=== PATIENT | male | born 1945 | race Caucasian/White ===

== ENCOUNTER → 2017-11-27 07:08 | Outpatient (CLI) | payer MEDICARE, SELFPAY ==
--- NOTE | 2017-11-27 10:11 | NEURO ---
NCS and/or EMG Patient Report Ordering Doctor: Verona Mcmahon DATE OF SERVICE: 11/27/17 This is a bilateral upper extremity nerve conduction study and a right upper extremity EMG performed on this 72-year-old male with numbness tingling and pain in his first 3 digits on his right hand. Did have a remote neck injury but he says he is pain-free now. He describes electrical sensations in his first 3 digits but this does not occur with neck movements. Bilateral upper extremity sensory and motor nerve conduction studies are performed. The median motor and sensory distal latencies are noted to severely prolonged bilaterally. The ulnar motor and sensory and radial sensory responses are normal. The median F-wave latencies are prolonged compared to the ulnar F wave latencies. Right upper extremity needle electromyography is performed. Muscles evaluated included the first dorsal interosseous, abductor pollicis brevis, abductor pollicis longus, brachioradialis, biceps, triceps and deltoid muscles. The abductor pollicis brevis muscle did demonstrate large motor unit amplitude, with increase in insertional activity and 1+ fibrillation potentials. All other muscles tested including other C8 muscles demonstrated normal insertional activity with absence of pathologic spontaneous activity. Motor unit potential recruitment pattern and amplitude was otherwise normal. Impression: This is an abnormal electrophysiologic study of the upper extremities consistent with moderate to severe carpal tunnel syndrome bilaterally worse electrophysiologically on the right side.
== END ==
PROVIDERS: Family Provider Family Medicine; PCP Family Medicine; Visit Provider Orthopaedic Surgery
DX: G56.03 Carpal tunnel syndrome, bilateral upper limbs (principal)
CPT/HCPCS: 95886; 95911

== ENCOUNTER → 2018-05-30 09:01 | Outpatient (CLI) | payer MEDICARE, SELFPAY ==
--- NOTE | 2018-05-30 09:07 | ECHOD_ITS ---
Reason For Study: Abn. EKG Procedure This was a 2D Doppler, Color Flow transthoracic echocardiogram. The exam was of adequate technical quality. Exam performed in department. Left Ventricle Normal LV size. Left ventricular systolic function is normal. The estimated ejection fraction is 60 %. No evidence for diastolic dysfunction. No regional wall motion abnormalities noted. Right Ventricle Normal RV size. Normal systolic function. Atria Normal left atrium. Normal right atrium. No doppler evidence for ASD. Mitral Valve There is moderate mitral annular calcification. Extension of the mitral annular calcification onto the posterior mitral valve leaflet. Trivial mitral valve insufficiency. Tricuspid Valve Normal tricuspid valve. Mild to moderate (1-2+) tricuspid valve insufficiency. Right ventricular systolic pressure estimated to be 30 mmHg. Aortic Valve Trisinus/trileaflet aortic valve. Normal aortic valve. Trivial aortic valve insufficiency. Pulmonic Valve The pulmonic valve is not well visualized. Mild (1+) pulmonic valve insufficiency. Great Vessels Normal sized aortic root. Pericardium/Pleural No pericardial effusion. MMode/2D Measurements & Calculations LVIDd: 3.9 cm IVSd: 1.1 cm Ao root diam: 3.3 cm LVIDs: 2.3 cm LVPWd: 1.2 cm RVDd: 3.8 cm FS: 41.3 % LAV(MOD-bp): 62.9 ml EDV(MOD-sp4): 112.6 ml EDV(MOD-sp2): 110.6 ml LAV(MOD-bp) Indexed: 34.6 ml/m2 ESV(MOD-sp4): 48.6 ml EF(MOD-sp2): 53.5 % LAV(MOD-sp2): 69.5 ml EF(MOD-sp4): 56.9 % LAV(MOD-sp4): 49.8 ml SV(MOD-sp4): 64.0 ml SV(MOD-sp2): 59.2 ml LA A4 area: 17.4 cm2 LA dimension(2D): 3.6 cm RA A4 area: 14.4 cm2 Doppler Measurements & Calculations MV E max vinicio: 72.4 cm/sec Lat Peak E' Vinicio: 11.8 cm/sec Med Peak E' Vinicio: 6.8 cm/sec MV A max vinicio: 78.8 cm/sec E/E' lat: 6.1 E/E' med: 10.7 MV E/A: 0.92 Ao V2 max: 142.5 cm/sec LV V1 max: 112.5 cm/sec PA V2 max: 104.7 cm/sec Ao max P.1 mmHg LV V1 max P.1 mmHg TR max vinicio: 257.8 cm/sec TR max P.6 mmHg Interpretation Summary Left ventricular systolic function is normal. The estimated ejection fraction is 60 %. There is moderate mitral annular calcification. Extension of the mitral annular calcification onto the posterior mitral valve leaflet. Trivial mitral valve insufficiency. Mild to moderate (1-2+) tricuspid valve insufficiency. Trivial aortic valve insufficiency. Mild (1+) pulmonic valve insufficiency. Right ventricular systolic pressure estimated to be 30 mmHg. No evidence for diastolic dysfunction. Ordering Physician: Phylicia Serra Referring Physician: Phylicia Serra Performed By: Allison You RDCS
== END ==
PROVIDERS: Family Provider Internal Medicine; PCP Internal Medicine; Referring Provider Internal Medicine; Visit Provider Internal Medicine
DX: R94.31 Abnormal electrocardiogram [ECG] [EKG] (principal)
CPT/HCPCS: 93306

== ENCOUNTER → 2018-12-05 08:27 | Outpatient (CLI) | payer MEDICARE, SELFPAY ==
[2018-12-05 10:27] LABS: Absolute Lymphocyte Count 1.59 X10^3/uL (0.83-4.51); Absolute Neutrophil Count 2.7 X10^3/uL (2.0-7.7); Basophil# 0.04 X10^3/uL; Basophil% 0.8 % (0-1); Eosinophil# 0.23 X10^3/uL; Eosinophils% 4.6 % (0-5); Hematocrit 40.6 % (40-54); Hemoglobin 13.3 g/dL (13.0-16.5); Lymphocyte # 1.59 X10^3/ul (4.0); Lymphocyte % 31.9 % (19-41); Mean Corp Hgb Conc 32.8 g/dL (32-36); Mean Corpuscular Hgb 30.6 pg (27.0-32.0); Mean Corpuscular Volume 93.3 fL (80-94); Mean Platelet Vol. 10.3 fl (6.2-12.0); Monocyte# 0.36 X10^3/uL; Monocyte% 7.2 % (0-10); NRBC Flagged by Analyzer 0 % (0-5); Neutrophil # 2.74 X10^3/uL (2.7-7.7); Neutrophil % 55.1 % (47-70); Platelet Count 271 K/mm3 (150-450); RBC Distribution Width CV 12.6 % (11.6-14.6); RBC Distribution Width SD 43.4 fl (35.1-43.9); Red Blood Count 4.35 M/mm3 (4.6-6.2)
[2018-12-05 11:18] LABS: Estradiol 20.4 pg/mL; Free T3 2.6 pg/mL (2.18-3.98); T4 Free Direct 0.98 ng/dL (0.76-1.46); Thyroid Stim Hormone (TSH) 1.52 uIU/mL (0.358-3.74)
[2018-12-09 11:24] LABS: Testosterone, % Free 1.67 % (1.50-4.20); Testosterone, Free 5.83 ng/dL (5.00-21.00)
[2018-12-10 13:01] LABS: PSA, Free 0.32 ng/mL; PSA, Free % 26.7 % (.); PSA, Total Ultrasensitive 1.2 ng/mL (0.0-4.0); Testosterone, Total 349 ng/dL (264-916); Thyroid Peroxidase AB 6 IU/mL (0-34)
== END ==
PROVIDERS: Family Provider Internal Medicine; PCP Internal Medicine; Referring Provider Preventive Medicine Public Health & General Preventive Medicine; Visit Provider Preventive Medicine Public Health & General Preventive Medicine
DX: E03.5 Myxedema coma (principal); E34.9 Endocrine disorder, unspecified; E29.1 Testicular hypofunction; N40.1 Benign prostatic hyperplasia with lower urinary tract symptoms; R97.20 Elevated prostate specific antigen [PSA]; E27.49 Other adrenocortical insufficiency
CPT/HCPCS: 36415; 82533; 82670; 84153; 84154; 84402; 84403; 84439; 84443; 84481; 85025; 86376

== ENCOUNTER 2019-08-12 10:13 | Day surgery (SDC) | payer MEDICARE, SELFPAY ==
[2019-07-28 13:24] VITALS: BMI 26.5
[2019-08-12] VITALS (8 sets, daily range): BP systolic 107–150; BP diastolic 59–76; PULSE 57–63; RESP 16; TEMP 36.1–36.9; O2SAT 95–99; BMI 25.7
[2019-08-12] MEDS: Lactated Ringers 1,000 ML 100 ML IV (10:59)
[2019-08-12 11:10] LABS: Bedside Glucose 183 mg/dL (70-110)
[2019-08-12] MEDS: Cefazolin 2 GM in 0.9% Normal Saline 100 ML IV (12:11)
--- NOTE | 2019-08-12 12:22 | HP.PCM_ITS ---
History and Physical I have re-examined the patient. There are no clinical changes since date of exam. Intake Vital Signs 07/28/19 BMI 26.5 Intake Visit Reasons: Bilat Wrist Allergies No Known Allergies Allergy (Verified 11/14/17 14:47) [facility] Surgical History (Updated 11/14/17 @ 14:47 by Roxana Morales) H/O cervical spine surgery (Acute) Social History (Updated 07/28/19 @ 13:[address] Verona Mcmahon, DO) Smoking Status: Former smoker HPI HPI Details: Patient was informed that this visit will be billed to patient. This visit was conducted during COVID-19 pandemic. AMBROSE TONEY, is a 74 M who presents to the office today for right carpal tunnel syndrome. gotten worse since shut gyms down and weakness worsening. states weakness worsening and having problems with shooting pain in first three fingers. Denies numbness, tingling or other associated symptoms in left hand, symptoms in right primarily. no changes in meds or med history. see chart for further details.. ROS [facility] [place] Musculoskeletal: Positive for muscle weakness (right hand) Exam Const General: cooperative HENMT Head: normal to inspection Eyes General: appearance normal, both eyes and all related structures Neck Neck: normal visual inspection [facility] [place] Musculoskeletal: Yes muscle weakness (right hand) Other: weakness first/thru third, numbness 1-3rd, Assessment & Plan Problems 1. Right carpal tunnel syndrome G56.01 Plan emg from 2018 showed mod to severe cts. h/o neck surgery no cervical radicular findings on emg. Reviewed the pre-operative plans with the patient. Risks and benefits of the procedure were fully explained, including but not limited to infection, neurovascular injury, continued pain, arthritis, stiffness, need for further surgery, re-injury, DVT, PE, general risks of anesthesia, and loss of limb or life. The patient understands all the risks and does wish to proceed with writ ten consent right carpal tunnel release. covid risks discussed as well, worsening weakness of hand and would like to proceed with ctr right hand.. staff will call with potential timing of surgery. at time of postop visit will get xrays of neck. Follow up 2 wks postop carpal tunnel or sooner if pain, swelling, numbness or associated symptoms, or concerns develop. All questions answered. Patient in agreement of plan. We discussed the current risk associated COVID-19. While it is understood that there is a community spread of COVID 19 the risk of patricio COVID-19 while at [facility] is very low, however, the risk cannot be completely mitigated because of the community spread of the disease. We discussed in detail the risk of exposure to and or potential harm posed by the COVID-19 virus with having a surgery/procedure at this time versus the risk of delaying the surgery/procedure. Is not possible to know either the risk of delaying the surgery procedure or chance of getting an infection with perfect accuracy, but a joint decision was made to proceed at this time with a schedule surgery/procedure as indicated on the consent form. Patient was notified that we will need to comply with any screening or testing [facility] wishes to perform or that surgery may be delayed for any positive results. Coding Level of Care Code Off vis,est,level 4 Diagnoses Right carpal tunnel syndrome G56.01 Essential Procedure Criteria Procedure Essential: Yes Criteria Note: On 06/09/2019 the [place] Department of Health ([facility]) Public Order signed by [facility] Director Roxana Nino M.D., regarding the Management of Non- Essential Surgeries and Procedures for the purpose of preserving Personal Protective Equipment (PPE) and critical hospital capacity and resources within [place] went into effect as of 06/10/2019 at 5:00PM. According to the [facility] Public Order: This action will remain in full force and effect until the State of Emergency declared by the Governor no longer exists or the Director of the [facility] rescinds or modifies this Order.. This [facility] order stated all non-essential or elective surgeries and procedures that utilize PPE should be delayed unless there is undue risk to the current or future health of a patient. After reviewi ng the aforementioned [facility] Public Order and the patients clinical case, I have determined that the scheduled procedure meets the criteria to go forward. Risk to Patient if Procedure Delayed: Risk of rapidly worsening to severe symptoms if delayed
--- NOTE | 2019-08-12 12:24 | DCINST_ITS ---
Discharge Diet: No Restrictions - Leave dressing on until seen in postop clinic in 10-14 days for suture removal, keep dressing clean, dry, intact; change dressing if gets wet/dirty, call with concerns Discharge Activity: May Not Drive May shower in (days): 1 Ice area for (Minutes): 20 - Every hour while awake. Weight Bearing Status: Weight bearing as tolerated Keep extremity elevated above heart level: Operative Extremity Call your doctor if your incision/area has: Continuous Slow Oozing, Sudden Increased Bleeding, Increased Pain/ Swelling, Increased Redness, Foul Smelling Discharge Call your doctor if you observe: Fever of 101 or Higher, Coldness, Increased Pain, Numbness or Tingling, Change in Color, Calf discomfort Allergies/Adverse Reactions: Allergies No Known Allergies Allergy (Verified 08/12/19 10:30) Medications to take at Discharge Amlodipine [Norvasc] 10 mg PO DAILY 02/03/15 Hydrochlorothiazide [Hctz] 25 mg PO DAILY 02/03/15 Lisinopril [Zestril] 20 mg PO BID 02/03/15 metFORMIN HCl [Glucophage] 500 mg PO BID 02/03/15 Ascorbic Acid [Vitamin C] 3,000 mg PO BID 08/07/19 Bee Pollen 500 mg PO BID 08/07/19 Cholecalciferol (Vitamin D3) [Vitamin D3] 10,000 unit PO DAILY 08/07/19 Cinnamon Bark [Cinnamon] 1,000 mg PO BID 08/07/19 Flaxseed Oil 1,000 mg PO BID 08/07/19 Folic Acid 0.4 mg PO DAILY 08/07/19 L.acidoph,Paracasei, B.lactis [Probiotic] 2 ea PO BID 08/07/19 Magnesium 250 mg PO BID 08/07/19 Potassium (Otc) [Potassium Otc] 99 mg PO QHS 08/07/19 Red Yeast Rice 600 mg PO BID 08/07/19 Saw [place] Fruit [Saw [place]] 450 mg PO DAILY 08/07/19 Saw [place] Fruit [Saw [place]] 900 mg PO QHS 08/07/19 Selenium 200 mcg PO BID 08/07/19 Zinc 50 mg PO BID 08/07/19 Acetaminophen/Codeine #3 [Tylenol #3 Tablet] 1 - 2 tab PO Q6H PRN PRN #20 tab 08/12/19 The following prescriptions were given: Acetaminophen/Codeine #3 [Tylenol #3 Tablet] 1 - 2 tab PO Q6H PRN PRN #20 tab PRN Reason: Pain Transmission Status: Received by [id number] Primary Care Physician: Phylicia Serra DO [Primary Care Provider] - Test Results: Test results from this visit will be discussed in further detail at your follow- up appointment, if applicable. Please Follow Up With: Verona Mcmahon DO - [phone]
--- NOTE | 2019-08-12 12:25 | OP.PCM_ITS ---
Report of Operation Date of Procedure: 08/12/19 Pre-Operative Diagnosis: right carpal tunnel syndrome Post-Operative Diagnosis: same Surgery/Procedure Performed:: right carpal tunnel release Type of Anesthesia:: General Anesthesiologist: Tarun Chaudhry Estimated Blood Loss (mL): min Fluids Replaced: 400cc lr Description of Procedure: Preoperative note Patient is a 74 year old patient with nerve conduction study confirming carpal tunnel syndrome. Patient failed conservative treatment for her carpal tunnel elected proceed with right carpal tunnel release. Risks benefits and alternatives surgery discussed with patient. Risks including but not limited to blood loss, blood clot, infection, neurovascular injury, failure procedure, loss of life and loss of limb. Patient is aware like proceed with right carpal tunnel release. We discussed the current risk associated COVID-19. While it is understood that there is a community spread of COVID 19 the risk of patricio COVID-19 while at [facility] is very low, however, the risk cannot be completely mitigated because of the community spread of the disease. We discus sed in detail the risk of exposure to and or potential harm posed by the COVID- 19 virus with having a surgery/procedure at this time versus the risk of delaying the surgery/procedure. Is not possible to know either the risk of delaying the surgery procedure or chance of getting an infection with perfect accuracy, but a joint decision was made to proceed at this time with a schedule surgery/procedure as indicated on the consent form. Patient was notified that we will need to comply with any screening or testing [facility] wishes to perform or that surgery may be delayed for any positive results. Operative note Patient seen and examined preoperative holding area. right hand was marked. History and physical and consent reviewed. Patient was brought to the operating room placed supine on the operating table. Sign in, anesthesia, antibiotics were administered. right upper extremity was prepped and draped after Beck block was initiated. All bony prominences well-padded SCDs placed on bilateral lower extremities. We marked out our incisions for our carpal tunnel release at the intersection of Cate's line in the fourth ray flexed. We extended about a centimeter and a half. Timeout was performed. We then checked ensure that the Beck block was working with pickups which it was . We then used a 15 blade to make a skin incision. We then dissected down tenotomy syllable of the transverse carpal ligament. We then used a new 15 blade cut through the transverse carpal ligament down to the level of the median nerve. We then further released the median nerve the combination of the 15 blade and tenotomies. The nerve was grayish in color and adherent to the transverse carpal ligament volarly. We released the transverse carpal ligament distally to the fat pad and then proximally under standard technique. We then palpated to ensure that we released all of the transverse carpal ligament which we did. We irrigated the incision with copious amounts of sterile saline. All bleeders were coagulated. The incision was closed with interrupted 4-0 nylon stitches. Tourniquet was deflated for total working time of 10 minutes. Patient tolerated procedure well there were no complications. Patient transferred to recovery room in stable condition. Postoperative note Hospital pharmacy has prescription Leave dressing clean dry and intact Follow-up in 2 weeks Call with concerns This note was generated with [employer] dictation software. It may contain incorrect words, spelling, and punctuation that were not noted in checking the note before signing
--- NOTE | 2019-08-12 12:31 | CHAPLAIN ---
Type of Pastoral Visit _x__ Initial Visit ___ Follow-up Visit ___ On-call Visit ___ General Patient Visit ___ Spiritual Assessment ___ Family Conference ___ Bereavement ___ Rapid Response ___ Code Blue ___ Other (describe below) Pastoral Care Referral From _x__ Patient ___ Family ___ Nurse ___ Physician ___ Health And Safety Consultant ___ Top Ironer ___ Other (describe below) Sacrament/Intervention _x__ Active listening ___ Anointing ___ Shinto ___ Bereavement ___ Communion ___ Dorie exploration ___ ___ Life review _x__ Prayer ___ Reconciliation ___ Sacrament of Sick ___ Supportive presence ___ Wedding ___ Other (describe below) Pastoral Comments pre surgery prayer and support
[2019-08-12] MEDS: Mupirocin Ointment 22gm Tube 1 APPLIC (12:34)
== END 2019-08-12 14:32 | disposition home or self-care (01) ==
LOC: SDC 10:14 → AC 10:15
PROVIDERS: PCP Internal Medicine; Referring Provider Orthopaedic Surgery; Visit Provider Orthopaedic Surgery
PROC: (CPT 64721; principal; 2019-08-12 11:30)
DX: G56.01 Carpal tunnel syndrome, right upper limb (principal); I10 Essential (primary) hypertension; E11.9 Type 2 diabetes mellitus without complications; Z79.899 Other long term (current) drug therapy; Z79.84 Long term (current) use of oral hypoglycemic drugs; Z87.891 Personal history of nicotine dependence; Z11.59 Encounter for screening for other viral diseases
CPT/HCPCS: 01810; 64721; 82962; 87635; C9803; G2023; J7120; A4216; U0002

== ENCOUNTER → 2019-09-22 09:21 | Outpatient (CLI) | payer MEDICARE, SELFPAY ==
[2019-09-22 09:12] VITALS: BMI 25.7
--- NOTE | 2019-09-22 09:22 | RAD_ITS ---
STUDY: X-RAY - CERVICAL SPINE REASON FOR EXAM: Male, 74 years old. PAIN TECHNIQUE: 5 view(s) of the cervical spine were obtained. COMPARISON: None FINDINGS: Normal anterior atlantoaxial articulation. Normal odontoid process. Normal cervical lordosis. Right lateral mass fusions at the C3-C5 levels. Bilateral laminectomies from C3-4 through C5-6. Normal visualized intervertebral neuroforamina. Vascular calcifications. RAD/Cerv Spine 4 or 5 Views IMPRESSION: Postoperative changes as described. Neural foramina are patent. Electronically Signed: Chente Choe MD at 16:33 EDT Tel , Service support ,
== END ==
PROVIDERS: PCP Internal Medicine; Referring Provider Orthopaedic Surgery; Visit Provider Orthopaedic Surgery
DX: M54.2 Cervicalgia (principal)
CPT/HCPCS: 72050

== ENCOUNTER 2020-01-27 23:14 | Emergency (ER) | payer MEDICARE, SELFPAY ==
[2019-09-22 09:12] VITALS: BMI 25.7
[2020-01-27 23:15] VITALS: BP 113/49; PULSE 50; RESP 16; TEMP 36.7; O2SAT 93; BMI 25.8
--- NOTE | 2020-01-27 23:29 | EKG12_ITS ---
Test Reason : COUGH Blood Pressure : / mmHG Vent. Rate : 080 BPM Atrial Rate : 080 BPM P-R Int : 210 ms QRS Dur : 148 ms QT Int : 386 ms P-R-T Axes : 054 078 026 degrees QTc Int : 445 ms Sinus rhythm with 1st degree A-V block Right bundle branch block Abnormal ECG Confirmed by ALISSON MOORE, ELSY ([id number]), marketing editor REY PEÑA ([id number]) on 01/28/2020 12:06:35 PM Referred By: KYLAH Confirmed By:CLAUDETTE VINSON MD
--- NOTE | 2020-01-27 23:40 | ED.DCSUM_ITS ---
History of Present Illness Chief Complaint: Cough Informant: Patient Onset: Today Context: Gradual Onset Timing: Intermittent Current Severity: Mild Maximum Severity: Moderate Narrative: The patient is a 74-year-old male who presents with Covid type symptoms. He states that his was positive. She was tested about 10 days ago. She did spend some time in the hospital. She states that she was cleared yesterday by the health department. He states that he did have symptoms that started about 4 or 5 days after her. He had cough, shortness of breath, diarrhea, and loss of taste and smell. He states that he feels like he has been improving. He has been following his pulse ox at home. He states that at sometimes, he will drop into the upper 70s for a few seconds but it will come back. He does not feel short of breath. He had a scant cough. He states his appetite has been returning. He has not had fever or chills. Prior similar symptoms: No Recent Illness/Hospitalization: No Past Medical History - Allergies and Home Meds Allergies/Adverse Reactions: Allergies No Known Allergies Allergy (Verified 01/27/20 23:18) Primary Care Physician: Phylicia Serra DO [Primary Care Provider] - Prior records reviewed: Yes Past Medical History: - - Diabetes Surgical History: noncontributory Smoking Status: Former smoker Review of Systems General: Denies: Chills, Fever, Sweats Eyes: Denies: Visual changes - bilaterally, Diplopia ENT: Denies: Rhinorrhea, Sore throat Cardiovascular: Denies: Chest pain, Palpitations Respiratory: Denies: Dyspnea, Cough, Dyspnea on exertion Gastrointestinal: Denies: Abdominal pain, Nausea, Vomiting, Diarrhea, Melena, Hematochezia Genitourinary: Denies: Dysuria, Hematuria, Frequency Musculoskeletal: Denies: Back pain, Extremity Pain Skin: Denies: Rash, Wounds Neurological: Denies: Headache, Weakness, Numbness Physical Exam Vital Signs/Narrative: Vital Signs Temp Pulse Resp BP Pulse Ox 01/27/20 23:15 98.0 F 50 L 16 113/49 L 93 Inital Vital Signs reviewed: Yes General: Well nourished, Well developed, No Acute Distress Head: Normocephalic, Atraumatic Eyes: Perrl, EOMI ENT: Moist mucous membranes, No rhinorrhea Neck: Supple, Nontender Cardiovascular: Regular rate, Regular rhythm, No murmurs Respiratory: No distress, CTA bilaterally, Chest nontender Abdomen: Soft, Nontender, Nondistended, Normal bowel sounds Back: Nontender, Normal Inspection Extremities: Nontender, No edema Skin: Normal color, No rash Neurological: Alert, Oriented x3, Cranial nerves II-XII grossly intact, Normal Strength, Normal Sensation Psychological: Normal affect, Normal Mood Diagnostic/Tx/Re-eval Abnormal Lab Results 01/27/20 01/27/20 01/27/20 23:40 23:40 23:40 WBC 5.6 RBC 4.41 L Hgb 13.3 Hct 40.7 MCV 92.3 MCH 30.2 MCHC 32.7 RDW Std Deviation 43.0 RDW Coeff of Maru 12.6 Plt Count 210 MPV 9.6 Immature Gran % (Auto) 0.400 Neut % (Auto) 74.5 H Lymph % (Auto) 19.9 [place] % (Auto) 4.6 Eos % (Auto) 0.2 Baso % (Auto) 0.4 Absolute Neuts (auto) 4.2 Absolute Lymphs (auto) 1.12 Nucleated RBC % 0 Sodium 138 Potassium 4.0 Chloride 102 Carbon Dioxide 26.0 Anion Gap 10 BUN 45 H Creatinine 1.85 H Estim Creat Clear Calc 31.61 Est GFR (MDRD) Af Amer 46 L Est GFR (MDRD) Non-Af 38 L BUN/Creatinine Ratio 24.3 H Glucose 175 H Lactic Acid 1.0 Calcium 8.2 L Total Bilirubin 0.40 AST 23 ALT 29 Alkaline Phosphatase 100 Total Protein 7.3 Albumin 3.3 Globulin 4.0 Albumin/Globulin Ratio 0.8 L Clinical Impression(s) from Imaging Studies Chest X-Ray 01/28/20 00:00 IMPRESSION: No evidence for acute cardiopulmonary pathology. Electronically Signed: Ramone Knox MD at 0:57 EST , Service support , - Medical Decision Making The patient presents with Covid symptoms. He states he is actually felt like he is been improving, but has been following his pulse ox and it is gone into the 70s. Here, the lowest documented pulse ox he had while in the bed was 89%. Metabolic work-up was pursued. Chest x-ray does not show any significant focal infiltrates. Labs are relatively unremarkable except for evidence of kidney injury. Patient was given a 500 cc bolus. The patient was ambulated through the room. His oxygen saturations actually increased. He has not been symptomatic. However, given his borderline hypoxia, I will cover him with Decadron. I did discuss options with the patient. He wants to go home. I feel this is reasonable. He has maintained good oxygen saturations. His illness has been significantly improving. He was counseled on concerning symptoms and reasons to return. He will be discharged. Impression 1. Covid 19 2. Dehydration ED Disposition - Plan for ED Patient: Instructions: ED Upper Resp Infec No Abx Tx Prescriptions: Dexamethasone [Decadron] 6 mg PO DAILY 5 Days #5 tab Prescription Printed Referrals: Phylicia Serra DO [Primary Care Provider] -
[2020-01-27 23:50] LABS: Absolute Lymphocyte Count 1.12 X10^3/uL (0.83-4.51); Absolute Neutrophil Count 4.2 X10^3/uL (2.0-7.7); Basophil# 0.02 X10^3/uL; Basophil% 0.4 % (0-1); Eosinophil# 0.01 X10^3/uL; Eosinophils% 0.2 % (0-5); Hematocrit 40.7 % (40-54); Hemoglobin 13.3 g/dL (13.0-16.5); Lymphocyte # 1.12 X10^3/ul (4.0); Lymphocyte % 19.9 % (19-41); Mean Corp Hgb Conc 32.7 g/dL (32-36); Mean Corpuscular Hgb 30.2 pg (27.0-32.0); Mean Corpuscular Volume 92.3 fL (80-94); Mean Platelet Vol. 9.6 fl (6.2-12.0); Monocyte# 0.26 X10^3/uL; Monocyte% 4.6 % (0-10); NRBC Flagged by Analyzer 0 % (0-5); Neutrophil % 74.5 % (47-70); Platelet Count 210 K/mm3 (150-450); RBC Distribution Width CV 12.6 % (11.6-14.6); Red Blood Count 4.41 M/mm3 (4.6-6.2); White Blood Count 5.6 K/mm3 (4.4-11.0)
[2020-01-27 23:57] VITALS: O2SAT 92
--- NOTE | 2020-01-28 | RAD_ITS ---
STUDY: X-RAY CHEST REASON FOR EXAM: Male, 74 years old. COUGH -- TESTED + FOR COVID TECHNIQUE: Single AP portable view of the chest. COMPARISON: None. FINDINGS: There are no confluent pulmonary infiltrates. There is no demonstrated pleural abnormality. Normal size heart. Normal mediastinum and chuckie. Normal visualized aortic arch and descending thoracic aorta. There are no demonstrated acute fractures or destructive bone lesions. There is no demonstrated abnormality of the visualized soft tissue structures of the upper abdomen. RAD/Chest 1 View (Portable) IMPRESSION: No evidence for acute cardiopulmonary pathology. Electronically Signed: Ramone Knox MD at 0:57 EST , Service support ,
[2020-01-28 00:22] LABS: ALB/GLOB Ratio 0.8 RATIO (0.9-2.4); AST(SGOT) 23 U/L (15-37); Alanine Aminotransfer ALT/SGPT 29 U/L (16-61); Albumin, Serum 3.3 g/dL (3.2-5.0); Alkaline Phosphatase 100 U/L (45-117); Anion Gap 10 (5-15); BUN 45 mg/dL (7-18); BUN/Creat Ratio 24.3 RATIO (10-20); Calcium,Total 8.2 mg/dL (8.5-10.1); Chloride 102 mmol/L (98-107); Creatinine, Serum 1.85 mg/dL (0.70-1.30); EST Glomerular Filtration Rate 38 mL/min (>60); Est Glom Filt Rate - Afr Amer 46 mL/min (>60); Estimated Creatinine Clearance 31.61 ml/min; Glucose 175 mg/dL (74-106); Protein, Total 7.3 g/dL (6.4-8.2); Sodium Level 138 mmol/L (136-145)
[2020-01-28 00:48] VITALS: O2SAT 91
[2020-01-28] MEDS: dexAMETHasone 4 MG/ML Vial 6 MG IV (00:49)
[2020-01-28 01:13] LABS: Probe Check PASS; Specimen Processing Control PASS
[2020-01-28 01:33] VITALS: BP 118/60; PULSE 70; RESP 20; O2SAT 95
== END 2020-01-28 01:41 | disposition home or self-care (01) ==
LOC: ED 23:40
PROVIDERS: Emergency Provider Emergency Medicine; PCP Internal Medicine
DX: U07.1 COVID-19 (principal); E86.0 Dehydration; E11.9 Type 2 diabetes mellitus without complications; Z79.84 Long term (current) use of oral hypoglycemic drugs; Z79.899 Other long term (current) drug therapy; Z87.891 Personal history of nicotine dependence
CPT/HCPCS: 71045; 80053; 83605; 85025; 87040; 87633; 87635; 93005; 96361; 96374; 99285; J7040; A4216; U0002

== ENCOUNTER → 2020-12-02 11:55 | Outpatient (CLI) | payer MEDICARE, SELFPAY ==
[2020-12-02 15:42] LABS: Absolute Lymphocyte Count 1.59 X10^3/uL (0.83-4.51); Absolute Neutrophil Count 3.5 X10^3/uL (2.0-7.7); Basophil# 0.04 X10^3/uL; Basophil% 0.7 % (0-1); Eosinophil# 0.22 X10^3/uL; Eosinophils% 3.8 % (0-5); Hematocrit 43.6 % (40-54); Hemoglobin 13.9 g/dL (13.0-16.5); Lymphocyte # 1.59 X10^3/ul (0.83-4.51); Lymphocyte % 27.4 % (19-41); Mean Corp Hgb Conc 31.9 g/dL (32-36); Mean Corpuscular Hgb 29.3 pg (27.0-32.0); Mean Corpuscular Volume 91.8 fL (80-94); Mean Platelet Vol. 10.9 fl (6.2-12.0); Monocyte# 0.42 X10^3/uL; Monocyte% 7.2 % (0-10); NRBC Flagged by Analyzer 0 % (0-5); Neutrophil # 3.51 X10^3/uL (2.7-7.7); Neutrophil % 60.6 % (47-70); Platelet Count 252 K/mm3 (150-450); RBC Distribution Width CV 13.2 % (11.6-14.6); RBC Distribution Width SD 44.2 fl (35.1-43.9); Red Blood Count 4.75 M/mm3 (4.6-6.2); White Blood Count 5.8 K/mm3 (4.4-11.0)
[2020-12-02 17:14] LABS: ALB/GLOB Ratio 1.1 RATIO (0.9-2.4); AST(SGOT) 21 U/L (15-37); Alanine Aminotransfer ALT/SGPT 59 U/L (16-61); Alkaline Phosphatase 78 U/L (45-117); Anion Gap 7 (5-15); BUN 33 mg/dL (7-18); BUN/Creat Ratio 30.3 RATIO (10-20); Chloride 105 mmol/L (98-107); Creatinine, Serum 1.09 mg/dL (0.70-1.30); EST Glomerular Filtration Rate 70 mL/min (>60); Est Glom Filt Rate - Afr Amer 85 mL/min (>60); Estradiol 27.6 pg/mL; Free T3 2.8 pg/mL (2.18-3.98); Globulin 3.6 g/dL (2.2-4.2); Glucose 175 mg/dL (74-106); PSA,Total - Annual Screen 1.33 ng/mL (0.00-4.00); Potassium 3.9 mmol/L (3.5-5.1); Protein, Total 7.6 g/dL (6.4-8.2); Sodium Level 138 mmol/L (136-145); T4 Free Direct 0.94 ng/dL (0.76-1.46); Thyroid Stim Hormone (TSH) 1.03 uIU/mL (0.358-3.74)
[2020-12-04 08:08] LABS: DHEA Sulfate 71.2 ug/dL (20.8-226.4)
[2020-12-04 17:23] LABS: Thyroid Peroxidase AB < 8 IU/mL (0-34)
== END ==
PROVIDERS: PCP Internal Medicine; Referring Provider Preventive Medicine Public Health & General Preventive Medicine; Visit Provider Preventive Medicine Public Health & General Preventive Medicine
DX: E03.9 Hypothyroidism, unspecified (principal); E34.9 Endocrine disorder, unspecified; E29.1 Testicular hypofunction; R97.20 Elevated prostate specific antigen [PSA]; N40.1 Benign prostatic hyperplasia with lower urinary tract symptoms
CPT/HCPCS: 36415; 80053; 82627; 82670; 84153; 84403; 84439; 84443; 84481; 85025; 86376; 82626; G0103

== ENCOUNTER 2021-03-27 09:15 | Outpatient (CLI) | payer MEDICARE, SELFPAY ==
[2021-03-27 10:12] LABS: Absolute Lymphocyte Count 1.93 X10^3/uL (0.83-4.51); Absolute Neutrophil Count 3.1 X10^3/uL (2.0-7.7); Basophil# 0.07 X10^3/uL; Basophil% 1.2 % (0-1); Eosinophil# 0.28 X10^3/uL; Eosinophils% 4.8 % (0-5); Lymphocyte # 1.93 X10^3/ul (0.83-4.51); Mean Corp Hgb Conc 32.6 g/dL (32-36); Mean Corpuscular Hgb 29.8 pg (27.0-32.0); Mean Corpuscular Volume 91.3 fL (80-94); Mean Platelet Vol. 9.9 fl (6.2-12.0); Monocyte# 0.43 X10^3/uL; Monocyte% 7.4 % (0-10); NRBC Flagged by Analyzer 0 % (0-5); Neutrophil % 52.9 % (47-70); Platelet Count 258 K/mm3 (150-450); RBC Distribution Width CV 12.8 % (11.6-14.6); RBC Distribution Width SD 42.7 fl (35.1-43.9); Red Blood Count 5.04 M/mm3 (4.6-6.2); White Blood Count 5.9 K/mm3 (4.4-11.0)
[2021-03-27 10:58] LABS: Estradiol < 11.0 pg/mL
== END 2021-03-27 23:59 | disposition short-term general hospital (02) ==
LOC: MTLAB 09:16
PROVIDERS: PCP Internal Medicine; Referring Provider Preventive Medicine Public Health & General Preventive Medicine; Visit Provider Preventive Medicine Public Health & General Preventive Medicine
DX: E34.9 Endocrine disorder, unspecified (principal); E29.1 Testicular hypofunction
CPT/HCPCS: 36415; 82670; 84403; 85025

== ENCOUNTER → 2022-03-21 | Outpatient (CLI) | payer MEDICARE, SELFPAY ==
--- NOTE | 2022-03-21 15:26 | NEURO ---
NCS and/or EMG Patient Report Ordering Doctor: Phylicia Serra DATE OF SERVICE: 03/21/22 Ghassan presents for electrodiagnostic testing of the left upper limb. Reports numbness and tingling in the first 3 digits of the left hand. Electrodiagnostic findings: Left median motor nerve demonstrates prolonged latency with reduced amplitude and reduced conduction velocity. Normal left ulnar motor response. Prolonged left median F wave. Prolonged left median sensory latency at the wrist. Absent left median palmar response. Prolonged left ulnar sensory latency at the wrist. On needle EMG, all muscles tested in the left upper limb showed no evidence of denervation with normal motor unit action potentials Electrodiagnostic impression: This is an abnormal study in the left upper limb. 1. Electrodiagnostic findings suggestive of left-sided median mononeuropathy. This is consistent with a severe left carpal tunnel syndrome. 2. 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 3. No electrodiagnostic evidence is noted for cervical radiculopathy.
== END | disposition home or self-care (01) ==
LOC: PSN 14:35
PROVIDERS: PCP Internal Medicine; Referring Provider Internal Medicine; Visit Provider Internal Medicine
DX: G56.02 Carpal tunnel syndrome, left upper limb (principal)
CPT/HCPCS: 95886; 95910

== ENCOUNTER → 2022-10-16 | Outpatient (CLI) | payer MEDICARE, SELFPAY ==
[2022-10-16 12:30] LABS: Absolute Lymphocyte Count 1.57 X10^3/uL (0.83-4.51); Absolute Neutrophil Count 2.8 X10^3/uL (2.0-7.7); Basophil# 0.05 X10^3/uL; Eosinophil# 0.24 X10^3/uL; Eosinophils% 4.7 % (0-5); Hematocrit 45.1 % (40-54); Hemoglobin 14.7 g/dL (13.0-16.5); Lymphocyte # 1.57 X10^3/ul (0.83-4.51); Lymphocyte % 30.7 % (19-41); Mean Corp Hgb Conc 32.6 g/dL (32-36); Mean Corpuscular Hgb 30.7 pg (27.0-32.0); Mean Corpuscular Volume 94.2 fL (80-94); Mean Platelet Vol. 10.3 fl (6.2-12.0); Monocyte% 7.8 % (0-10); NRBC Flagged by Analyzer 0 % (0-5); Neutrophil # 2.83 X10^3/uL (2.7-7.7); Neutrophil % 55.4 % (47-70); Platelet Count 240 K/mm3 (150-450); RBC Distribution Width CV 13.3 % (11.6-14.6); RBC Distribution Width SD 45.6 fl (35.1-43.9); Red Blood Count 4.79 M/mm3 (4.6-6.2); White Blood Count 5.1 K/mm3 (4.4-11.0)
[2022-10-16 13:24] LABS: ALB/GLOB Ratio 1.2 RATIO (0.9-2.4); AST(SGOT) 15 U/L (15-37); Alanine Aminotransfer ALT/SGPT 34 U/L (16-61); Alkaline Phosphatase 68 U/L (45-117); Anion Gap 7 (5-15); BUN 29 mg/dL (7-18); BUN/Creat Ratio 23.6 RATIO (10-20); Calcium,Total 9.5 mg/dL (8.5-10.1); Chloride 105 mmol/L (98-107); Creatinine, Serum 1.23 mg/dL (0.70-1.30); EST Glomerular Filtration Rate 61 mL/min (>60); Est Glom Filt Rate - Afr Amer 73 mL/min (>60); Estradiol 26.4 pg/mL; Globulin 3.2 g/dL (2.2-4.2); Glucose 181 mg/dL (74-106); Potassium 4.1 mmol/L (3.5-5.1); Protein, Total 7.2 g/dL (6.4-8.2); Sodium Level 137 mmol/L (136-145)
[2022-10-20 11:08] LABS: PSA, Free 0.57 ng/mL; PSA, Free % 36.5 % (.); Testosterone, Free 19.04 ng/dL (5.00-21.00); Testosterone, Total 705 ng/dL (264-916)
== END | disposition home or self-care (01) ==
LOC: MTLAB 10:20
PROVIDERS: PCP Internal Medicine; Referring Provider Preventive Medicine Public Health & General Preventive Medicine; Visit Provider Preventive Medicine Public Health & General Preventive Medicine
DX: N40.1 Benign prostatic hyperplasia with lower urinary tract symptoms (principal); R97.20 Elevated prostate specific antigen [PSA]; E29.1 Testicular hypofunction
CPT/HCPCS: 36415; 80053; 82670; 84153; 84154; 84402; 84403; 85025

== ENCOUNTER → 2023-08-07 | Outpatient (CLI) | payer MEDICARE, SELFPAY ==
--- NOTE | 2023-08-07 12:29 | MRI_ITS ---
We are attempting to reach an attending provider to discuss findings. An addendum with communication details will be sent when the communication is complete. EXAM: MR ABDOMEN WITHOUT AND WITH INTRAVENOUS CONTRAST CLINICAL INDICATION: abdominal pain, elevated liver enzymes, alk phos, bilirubin. Epi -- URGENT -- Include MRCP images, rule out obstruction. Elevated ALK phos, AL TECHNIQUE: Multiplanar and multisequence MR images of the abdomen without and with intravenous contrast. CONTRAST: 12 cc of Clariscan IV. COMPARISON: No relevant prior studies available. FINDINGS: LOWER THORAX: Unremarkable. No pleural effusion. LIVER: Innumerable solid masses throughout the liver consistent with metastases. The largest measures up to 3.5 cm. Mild intra and extrahepatic biliary dilatation. GALLBLADDER AND BILE DUCTS: Layering material within the gallbladder may be due to sludge. Common bile duct is dilated up to 1.3 cm and there is mild intrahepatic biliary dilatation. Gallbladder is distended measuring 4.8 cm in diameter. PANCREAS: Unremarkable. No focal cystic or solid mass. SPLEEN: Unremarkable. Normal size without focal cystic or solid mass. ADRENALS: Unremarkable. No nodules. KIDNEYS AND URETERS: Simple bilateral renal cysts. No follow-up of these simple cysts is necessary. Normal renal size and position. No hydronephrosis. INTRAPERITONEAL SPACE: Unremarkable. No ascites or other fluid collection. No free air. SOFT TISSUES: Mass measuring up to 2.7 cm in diameter involving the head/uncinate process of the abdomen demonstrate some enhancement post gadolinium and high signal on diffusion-weighted images. VASCULATURE: Unremarkable. Abdominal aorta is non-dilated. LYMPH NODES: No enlarged lymph nodes. MRI/MRI Abd WITH and W/O Contrast IMPRESSION: 1. Innumerable solid masses throughout the liver consistent with metastases. The largest measures up to 3.5 cm. 2. Possible 2.7 cm neoplasm in the head of the pancreas. Recommend CT scan of the chest abdomen and pelvis with contrast. 3. Distended gallbladder with sludge. 4. Mild intra and extrahepatic biliary dilatation. Electronically Signed: Kenney Basilio MD at 1:05 EDT ,
[2023-08-07 13:08] LABS: CREATININE FINGERSTICK < 1.0 mg/dL (0.70-1.30); EGFR FINGERSTICK > 60.0000 mL/min (>60)
== END | disposition home or self-care (01) ==
LOC: MRI 12:26
PROVIDERS: PCP Internal Medicine; Referring Provider Internal Medicine; Visit Provider Internal Medicine
DX: R94.5 Abnormal results of liver function studies (principal)
CPT/HCPCS: 74183; A9575; A4216

== ENCOUNTER → 2023-08-08 | Outpatient (CLI) | payer MEDICARE, SELFPAY ==
[2023-08-08 12:32] LABS: Absolute Lymphocyte Count 1.19 X10^3/uL (0.83-4.51); Absolute Neutrophil Count 4.7 X10^3/uL (2.0-7.7); Basophil# 0.05 X10^3/uL; Basophil% 0.7 % (0-1); Eosinophil# 0.15 X10^3/uL; Eosinophils% 2.2 % (0-5); Hematocrit 39.5 % (40-54); Hemoglobin 12.7 g/dL (13.0-16.5); Lymphocyte # 1.19 X10^3/ul (0.83-4.51); Lymphocyte % 17.7 % (19-41); Mean Corp Hgb Conc 32.2 g/dL (32-36); Mean Corpuscular Hgb 30.2 pg (27.0-32.0); Mean Platelet Vol. 11.6 fl (6.2-12.0); Monocyte# 0.59 X10^3/uL; Monocyte% 8.8 % (0-10); NRBC Flagged by Analyzer 0 % (0-5); Neutrophil # 4.72 X10^3/uL (2.7-7.7); Neutrophil % 70.2 % (47-70); Platelet Count 291 K/mm3 (150-450); RBC Distribution Width CV 13.7 % (11.6-14.6); RBC Distribution Width SD 47.2 fl (35.1-43.9); White Blood Count 6.7 K/mm3 (4.4-11.0)
[2023-08-08 12:37] LABS: International Normalized Ratio 1.2; Partial Thromboplast Time 31.2 Seconds (24.1-36.2); Prothrombin Time (Protime)PT. 14.8 SECONDS (11.7-14.9)
[2023-08-08 12:50] LABS: ALB/GLOB Ratio 1.1 RATIO (0.9-2.4); AST(SGOT) 54 U/L (15-37); Alanine Aminotransfer ALT/SGPT 156 U/L (16-61); Albumin, Serum 3.2 g/dL (3.2-5.0); Alkaline Phosphatase 873 U/L (45-117); Anion Gap 5 (5-15); BUN 26 mg/dL (7-18); BUN/Creat Ratio 32.8 RATIO (10-20); Calcium,Total 8.7 mg/dL (8.5-10.1); Chloride 104 mmol/L (98-107); Creatinine, Serum 0.79 mg/dL (0.70-1.30); EST Glomerular Filtration Rate 100 mL/min (>60); Est Glom Filt Rate - Afr Amer 121 mL/min (>60); Glucose 269 mg/dL (74-106); Potassium 3.8 mmol/L (3.5-5.1); Protein, Total 6.2 g/dL (6.4-8.2); Sodium Level 140 mmol/L (136-145)
[2023-08-10 04:07] LABS: Carbohydrate AG 19-9 5877 U/mL (0-35)
== END | disposition home or self-care (01) ==
LOC: LABSPEC 12:01
PROVIDERS: PCP Internal Medicine; Referring Provider Internal Medicine; Visit Provider Internal Medicine
DX: K75.89 Other specified inflammatory liver diseases (principal)
CPT/HCPCS: 80053; 85025; 85610; 85730; 86301

== ENCOUNTER 2023-08-09 12:34 | Inpatient (IN) | payer MEDICARE, SELFPAY ==
[2023-08-09 12:36] VITALS: BP 200/72; PULSE 55; PULSE 56; RESP 14; TEMP 35.7; O2SAT 100; O2SAT 99; BMI 21.9
[2023-08-09 12:55] LABS: Absolute Lymphocyte Count 1.41 X10^3/uL (0.83-4.51); Absolute Neutrophil Count 4.9 X10^3/uL (2.0-7.7); Basophil# 0.05 X10^3/uL; Basophil% 0.7 % (0-1); Eosinophil# 0.13 X10^3/uL; Eosinophils% 1.8 % (0-5); Hematocrit 39.9 % (40-54); Hemoglobin 12.9 g/dL (13.0-16.5); Lymphocyte # 1.41 X10^3/ul (0.83-4.51); Lymphocyte % 19.7 % (19-41); Mean Corp Hgb Conc 32.3 g/dL (32-36); Mean Corpuscular Volume 92.8 fL (80-94); Mean Platelet Vol. 10.6 fl (6.2-12.0); Monocyte# 0.63 X10^3/uL; Monocyte% 8.8 % (0-10); NRBC Flagged by Analyzer 0 % (0-5); Neutrophil # 4.91 X10^3/uL (2.7-7.7); Neutrophil % 68.7 % (47-70); Platelet Count 280 K/mm3 (150-450); RBC Distribution Width CV 13.7 % (11.6-14.6); RBC Distribution Width SD 46.7 fl (35.1-43.9); White Blood Count 7.2 K/mm3 (4.4-11.0)
[2023-08-09 13:06] LABS: Prothrombin Time (Protime)PT. 13.6 SECONDS (11.7-14.9)
[2023-08-09 13:15] LABS: AST(SGOT) 58 U/L (15-37); Alanine Aminotransfer ALT/SGPT 175 U/L (16-61); Albumin, Serum 3.3 g/dL (3.2-5.0); Alkaline Phosphatase 898 U/L (45-117); Anion Gap 4 (5-15); BUN 24 mg/dL (7-18); BUN/Creat Ratio 32.9 RATIO (10-20); Bilirubin, Direct 3.16 mg/dL (0.00-0.30); Chloride 104 mmol/L (98-107); Creatinine, Serum 0.73 mg/dL (0.70-1.30); EST Glomerular Filtration Rate 110 mL/min (>60); Est Glom Filt Rate - Afr Amer 134 mL/min (>60); Estimated Creatinine Clearance 64.45 ml/min; Globulin 3.4 g/dL (2.2-4.2); Glucose 164 mg/dL (74-106); Lipase 44 U/L (13-75); Potassium 3.2 mmol/L (3.5-5.1); Protein, Total 6.7 g/dL (6.4-8.2); Sodium Level 138 mmol/L (136-145)
--- NOTE | 2023-08-09 13:37 | EDS_ITS ---
HPI <AMANDO Recinos - Last Filed: 08/09/23 14:26> History of Present Illness Chief Complaint: General Illness Narrative Narrative: Patient is a 78-year-old male with history of hypertension, type 2 diabetes, who has not taken his medications in greater than 1 week. Patient presents to the emergency department for abnormal lab values, abnormal MRI reading from his primary care. Per the patient the last 6 weeks, the patient has decreased appetite, some weight loss. Patient had an MRI of his abdomen, showing liver nodules, as well as a pancreatic mass. Patient does have some transaminitis. Patient does not drink alcohol, does not smoke cigarettes. Patient was referred here for ERCP, I spoke with the patient's PCP who referred him here to the emergency department. Patient denies any fever chills, infectious symptoms. PFSH <AMANDO Recinos - Last Filed: 08/09/23 14:26> [facility] Medical History Diabetes mellitus, type 2 Former tobacco use Osteoarthritis HTN (hypertension) Home Medications ?Medication ?Instructions ?Recorded ?Last Taken ?Type amlodipine 10 mg tablet 10 mg PO DAILY 02/03/15 08/01/23 History hydrochlorothiazide 25 mg tablet 25 mg PO DAILY 02/03/15 08/01/23 History lisinopril 20 mg tablet 20 mg PO BID 02/03/15 08/01/23 History selenium 200 mcg tablet 200 mcg PO BID 08/07/19 08/05/23 History cholecalciferol (vitamin D3) 1 tab PO DAILY 08/09/23 08/08/23 History zhizvc-tqqcupvv-wcrjjel 1 cap PO 3XD 08/09/23 08/09/23 History 24,000-76,000-120,000 unit capsule,delayed rel (Creon) testosterone 50 mg/5 gram (1 %) 50 mg transdermal DAILY 08/09/23 08/09/23 History transdermal gel zinc sulfate 50 mg zinc (220 mg) 50 mg PO DAILY 08/09/23 08/08/23 History tablet Allergy/AdvReac Type Severity Reaction Status Date / Time No Known Allergies Allergy Verified 08/09/23 12:35 Family History (Updated 08/09/23 @ 15:[address] Kathy Brasher MD) Father Cancer Brother Diabetes Mother Hypertension HLD (hyperlipidemia) Surgical History S/P carpal tunnel release H/O shoulder surgery H/O cervical spine surgery Social History household members: spouse and family housing: house current occupational status: retired Smoking Status: Former smoker how long ago did patient quit smoking: Quit 1971, smoked near 44 years. alcohol intake: never substance use type: does not use ROS <AMANDO Recinos - Last Filed: 08/09/23 14:26> ROS ED ROS Narrative Constitutional: Negative for fever, chills. Positive for weight loss, weakness Eyes: Negative for vision loss, vision change, double vision ENT: Negative for any sore throat, ear pain, congestion Cardiovascular: Negative for any chest pain, tightness, palpitations Respiratory: Negative for any cough, sputum production, hemoptysis, dyspnea, dyspnea on exertion, orthopnea Gastrointestinal: Negative for any abdominal pain, nausea, vomiting, diarrhea, constipation, blood in stool, blood in vomit : Negative for any urinary frequency, dysuria, retention, blood in urine Muscle skeletal: Negative for any neck pain, back pain Neurological: Negative for any headache, syncope, dizziness Skin: Negative for any rashes, itching, abrasions, lacerations Psychiatric: Negative for any depression, anxiety, stress, suicidal ideation, homicidal ideation Hematologic: Negative for any excessive bruising, easy bleeding EXAM <AMANDO Recinos - Last Filed: 08/09/23 14:26> Physical Exam Narrative Exam Narrative: Vital signs reviewed. HEET: Head normocephalic atraumatic, TMs clear bilaterally. Posterior pharynx is clear, moist mucous membranes. Nares clear bilaterally. Slight sclera icterus Neck: Supple with no lymphadenopathy or tenderness. No signs of meningismus. Cardiac: Regular rate and rhythm no murmurs gallops or rubs, equal peripheral pulses bilaterally. Respiratory: Lungs clear to auscultation bilaterally. No chest tenderness. Abdomen: Soft, nontender, nondistended. No abdominal bruit or pulsatile masses. No hepatosplenomegaly Extremities: No peripheral edema, no signs of gross trauma or deformity. Active full range of motion of all extremities. Neuro: Cranial nerves II through XII intact, no focal neurological deficits. Skin: Clean dry and intact with no rash, purpura, petechiae, vesicles or pustules. Backs/flank: No CVA tenderness, no midline spinal tenderness, no deformity. Psych: Normal mood and affect. No SI, HI or acute psychosis. Const Vital Signs: 08/09/23 12:36 08/09/23 12:36 08/09/23 13:01 Temperature 96.3 F L 96.3 F L Temperature Source Temporal Temporal Pulse Rate 55 L 56 L Respiratory Rate 14 14 Respiratory Effort Normal Non-Labored Respiratory Pattern Normal Blood Pressure 200/72 H 200/72 H Blood Pressure Mean 114 114 Pulse Ox 100 99 Oxygen Delivery Method Room Air Room Air 08/09/23 14:26 Temperature 96.3 F L Temperature Source Pulse Rate 56 L Respiratory Rate 14 Respiratory Effort Respiratory Pattern Blood Pressure 200/72 H Blood Pressure Mean 114 Pulse Ox 99 Oxygen Delivery Method <Dr. Dangelo Reid DO - Last Filed: 08/09/23 15:19> Physical Exam Const Vital Signs: 08/09/23 12:36 08/09/23 12:36 08/09/23 13:01 Temperature 96.3 F L 96.3 F L Temperature Source Temporal Temporal Pulse Rate 55 L 56 L Respiratory Rate 14 14 Respiratory Effort Normal Non-Labored Respiratory Pattern Normal Blood Pressure 200/72 H 200/72 H Blood Pressure Mean 114 114 Pulse Ox 100 99 Oxygen Delivery Method Room Air Room Air 08/09/23 14:26 Temperature 96.3 F L Temperature Source Pulse Rate 56 L Respiratory Rate 14 Respiratory Effort Respiratory Pattern Blood Pressure 200/72 H Blood Pressure Mean 114 Pulse Ox 99 Oxygen Delivery Method [facility] <AMANDO Recinos - Last Filed: 08/09/23 14:26> [facility] Lab Data Labs: Laboratory Results - last 24 hr 08/09/23 12:45 WBC 7.2 RBC 4.30 L Hgb 12.9 L Hct 39.9 L MCV 92.8 MCH 30.0 MCHC 32.3 RDW Std Deviation 46.7 H RDW Coeff of Maru 13.7 Plt Count 280 MPV 10.6 Immature Gran % (Auto) 0.300 Neut % (Auto) 68.7 Lymph % (Auto) 19.7 [place] % (Auto) 8.8 Eos % (Auto) 1.8 Baso % (Auto) 0.7 Absolute Neuts (auto) 4.9 Absolute Lymphs (auto) 1.41 Nucleated RBC % 0 PT 13.6 INR 1.0 Sodium 138 Potassium 3.2 L Chloride 104 Carbon Dioxide 30.0 Anion Gap 4 L BUN 24 H Creatinine 0.73 Estim Creat Clear Calc 64.45 Est GFR (MDRD) Af Amer 134 Est GFR (MDRD) Non-Af 110 BUN/Creatinine Ratio 32.9 H Glucose 164 H Calcium 9.0 Phosphorus 2.7 Magnesium 2.2 Total Bilirubin 3.80 H Direct Bilirubin 3.16 H AST 58 H ALT 175 H Alkaline Phosphatase 898 H Total Protein 6.7 Albumin 3.3 Globulin 3.4 Lipase 44 Treatment and Re-Evaluation :: Differential diagnosis includes however is not limited to: Pancreatic cancer, liver cancer, metastasis, pancreatic obstruction tPatient appears to be in no obvious respiratory distress, patient's vital signs are stable. Patient presents to the emergency department for abnormal laboratory values, pancreatic mass found on abdominal MRI. Patient did receive basic laboratory values, patient CBC shows slight anemia with a hemoglobin of 12.9 however this is baseline for the patient. Patient's PT/INR is within normal limits with a PT of 13.6, INR 1.0. Patient's chemistries show potassium 3.2, BUN of 24, patient's glucose 164 with a total bilirubin of 3.8, direct bilirubin 3.1 patient's AST is 58 which is slightly elevated, ALT is 175 with an alkaline phos of 898. Lipase was negative. Secondary with these lab findings, as well as pancreatic mass and liver nodules, they are concerned for a metastasis. Patient will need to be admitted to the hospital. I spoke with both the patient's primary care provider as well as Dr. Friend, they are agreement that the patient needs to be admitted for ERCP. He will also need to have liver biopsies and other testing. Patient is agreeable, patient will be admitted to the hospital. Patient continues to be hypertensive, patient be given lisinopril 20 amlodipine 5, these are the medications that he does take at home. I talk with hospitalist, patient be admitted to general medical full <Dr. Dangelo Reid, DO - Last Filed: 08/09/23 15:19> [facility] Narrative Medical decision making narrative: Differential diagnosis includes however is not limited to: Pancreatic cancer, liver cancer, metastasis, pancreatic obstruction tPatient appears to be in no obvious respiratory distress, patient's vital signs are stable. Patient presents to the emergency department for abnormal laboratory values, pancreatic mass found on abdominal MRI. Patient did receive basic laboratory values, patient CBC shows slight anemia with a hemoglobin of 1 2.9 however this is baseline for the patient. Patient's PT/INR is within normal limits with a PT of 13.6, INR 1.0. Patient's chemistries show potassium 3.2, BUN of 24, patient's glucose 164 with a total bilirubin of 3.8, direct bilirubin 3.1 patient's AST is 58 which is slightly elevated, ALT is 175 with an alkaline phos of 898. Lipase was negative. Secondary with these lab findings, as well a s pancreatic mass and liver nodules, they are concerned for a metastasis. Patient will need to be admitted to the hospital. I spoke with both the patient's primary care provider as well as Dr. Vogt, they are agreement that the patient needs to be admitted for ERCP. He will also need to have liver biopsies and other testing. Patient is agreeable, patient will be admitted to the hospital. Patient continues to be hypertensive, patient be given lisinopril 20 amlodipine 5, these are the medications that he does take at home. I talk with hospitalist, patient be admitted to general medical full This patient was seen with a PA/EMERGENCY RESPONSE COORDINATOR Individually assessed they patient including history and physical. I have reviewed everything on the chart that is available and agree with the documentation provided by the PA/EMERGENCY RESPONSE COORDINATOR including discussion about the assessment, treatment plan, discussion, and return precautions. Patient sent in for painless jaundice. His lab workup does reflect a total bilirubin 3.8, bilirubin 2.1, AST 58, ALT 135, 98. Lipase normal. Patient had outpatient MRI which was concerning and Dr. Vogt was amenable to seeing him for ERCP and liver biopsies. Discussed with hospitalist for admission. Lab Data Attestation: I reviewed the patient's lab results. Labs: Laboratory Results - last 24 hr 08/09/23 12:45 WBC 7.2 RBC 4.30 L Hgb 12.9 L Hct 39.9 L MCV 92.8 MCH 30.0 MCHC 32.3 RDW Std Deviation 46.7 H RDW Coeff of Maru 13.7 Plt Count 280 MPV 10.6 Immature Gran % (Auto) 0.300 Neut % (Auto) 68.7 Lymph % (Auto) 19.7 [place] % (Auto) 8.8 Eos % (Auto) 1.8 Baso % (Auto) 0.7 Absolute Neuts (auto) 4.9 Absolute Lymphs (auto) 1.41 Nucleated RBC % 0 PT 13.6 INR 1.0 Sodium 138 Potassium 3.2 L Chloride 104 Carbon Dioxide 30.0 Anion Gap 4 L BUN 24 H Creatinine 0.73 Estim Creat Clear Calc 64.45 Est GFR (MDRD) Af Amer 134 Est GFR (MDRD) Non-Af 110 BUN/Creatinine Ratio 32.9 H Glucose 164 H Calcium 9.0 Phosphorus 2.7 Magnesium 2.2 Total Bilirubin 3.80 H Direct Bilirubin 3.16 H AST 58 H ALT 175 H Alkaline Phosphatase 898 H Total Protein 6.7 Albumin 3.3 Globulin 3.4 Lipase 44 Discharge Plan Dx/Rx/DC Orders Clinical Impression: Mass of pancreas, Liver nodule, Transaminitis, Scleral icterus, Abnormal weight loss Disposition Disposition: Acute Care Hospital [facility] Discharge Date/Time: 08/09/23 15:03
--- NOTE | 2023-08-09 14:08 | HP.PCM.HOS_ITS ---
HPI - General General Date of Admission: 08/09/23 Date of Service: 08/09/23 Chief Complaint: Poor intake, weight loss, recent liver/pancreatic masses found. HPI Narrative The patient is a 78 y/o M w/ PMHx: HTN, Former tobacco use, OA, Chart reported Diabetes mellitus type II who presents to the [facility] ED on 08/09/23 with history of recent outpatient evaluation including 08/07/2023 abdominal MRI with and without contrast with innumerable solid masses throughout the liver consistent with metastases, largest measuring up to 3.5 cm, possible 2.7 cm neoplasm in the head of the pancreas, distended gallbladder with sludge, mild intra and extrahepatic biliary dilatation and 08/08/2023 evaluation labs with T. bili 3.80, AST/LT 54/156, alk phos 873 with pending CA 19-[address] Serra with 6-week history of poor appetite, decreased oral intake with weight loss reportedly not taking his medications for at least a week because of his symptoms with no fevers or chills with PCP discussion with gastroenterology with referral to ED for consideration ERCP. Patient has become more jaundiced in addition. Patient does report that he is been able to eat very small intermittent meals recently and has gained back potentially 1 pound may be 2 at the most. He denies any nausea or emesis or abdominal discomfort. Workup in the ED included T 96.3, heart rate 55, BP 200/72, respiratory rate 14, 100% on room air, CBC with WBC 7.2, hemoglobin 12.9, MCV 92.8, platelet 280 without marked shift, unremarkable coags, CMP with potassium 3.2, BUN/creatinine 24/0.73, glucose 164, T. bili 3.80, D bili 3.16, AST/ALT 58/175, alk phos 898, lipase 44. ED physician discussed case with patient PCP as well as gastroenterology Dr. Vogt with planned admission for ERCP. In the ED patient ministered Norvasc 5 mg x 1 as well as lisinopril 20 mg x 1 given elevated blood pressure not recently taking his medication. [facility] Medical History Diabetes mellitus, type 2 Former tobacco use Osteoarthritis HTN (hypertension) Home Medications ?Medication ?Instructions ?Recorded ?Last Taken ?Type amlodipine 10 mg tablet 10 mg PO DAILY 02/03/15 08/01/23 History hydrochlorothiazide 25 mg tablet 25 mg PO DAILY 02/03/15 08/01/23 History lisinopril 20 mg tablet 20 mg PO BID 02/03/15 08/01/23 History selenium 200 mcg tablet 200 mcg PO BID 08/07/19 08/05/23 History cholecalciferol (vitamin D3) 1 tab PO DAILY 08/09/23 08/08/23 History hoxcjc-[id number]-jfmvllg 1 cap PO 3XD 08/09/23 08/09/23 History 24,000-76,000-120,000 unit capsule,delayed rel (Creon) testosterone 50 mg/5 gram (1 %) 50 mg transdermal DAILY 08/09/23 08/09/23 History transdermal gel zinc sulfate 50 mg zinc (220 mg) 50 mg PO DAILY 08/09/23 08/08/23 History tablet Allergy/AdvReac Type Severity Reaction Status Date / Time No Known Allergies Allergy Verified 08/09/23 12:35 Family History (Updated 08/09/23 @ 15:[address] Kathy Brasher MD) Father Cancer Brother Diabetes Mother Hypertension HLD (hyperlipidemia) Surgical History S/P carpal tunnel release H/O shoulder surgery H/O cervical spine surgery Social History household members: spouse and family housing: house current occupational status: retired Smoking Status: Former smoker how long ago did patient quit smoking: Quit 1971, smoked near 44 years. alcohol intake: never substance use type: does not use ROS ROS Narrative Admission Review of Systems: CONSTITUTIONAL: No fever, chills, + weakness or fatigue, weight loss with poor appetite. HEENT: Eyes: No visual loss, blurred vision, double vision. + Mild scleral icterus. Ears, Nose, Throat: No hearing loss, sneezing, congestion, runny nose or sore throat. SKIN: No rash or itching, lesions, wounds except noted new onset + jaundiced appearance, occasional abrasion, ecchymoses. CARDIOVASCULAR: No chest pain, chest pressure or chest discomfort, palpitations, edema, orthopnea, syncopal events. RESPIRATORY: No shortness of breath, cough or sputum, wheezing, hemoptysis. GASTROINTESTINAL: + anorexia. No nausea, vomiting or diarrhea, abdominal pain, melena, BRBPR. GENITOURINARY: No dysuria, frequency, urgency or retention. NEUROLOGICAL: No headache, dizziness, syncope, paralysis, ataxia, numbness or tingling in the extremities, focal weakness, change in bowel or bladder control, seizure. MUSCULOSKELETAL: + muscle, back pain, joint pain or stiffness. HEMATOLOGIC: + Chronic anemia with easy bleeding/bruising. LYMPHATICS: No enlarged nodes. No history of splenectomy. PSYCHIATRIC: No history of depression or anxiety. ENDOCRINOLOGIC: No reports of sweating, cold or heat intolerance. No polyuria or polydipsia. ALLERGIES: No history of asthma, hives, eczema or rhinitis. Vital Signs Vital Signs Vital Signs: 08/09/23 12:36 08/09/23 12:36 08/09/23 13:01 Temperature 96.3 F L 96.3 F L Temperature Source Temporal Temporal Pulse Rate 55 L 56 L Respiratory Rate 14 14 Respiratory Effort Normal Non-Labored Respiratory Pattern Normal Blood Pressure 200/72 H 200/72 H Blood Pressure Mean 114 114 Pulse Ox 100 99 Oxygen Delivery Method Room Air Room Air Weight Weight: 132 lb Body Mass Index (BMI) 21.9 Physical Exam Narrative Physical Examination: General: Awake, alert, oriented x 3 and cooperative, seated upright in the ED bed, no acute distress, flat affect, fatigued appearing. Skin: Normal turgor, no cyanosis, jaundice appearance, very mild scleral icterus noted. HEENT: AT/NC, EOMI, PERRLA, moderately dry MM, no carotid bruits or JVD noted, see skin. Lungs: Diminished, greater bases, appropriate effort, no evidence of any distress, no rales, ronchi or wheezing. Heart: Regular rate and rhythm; no gallop, rub audible. Abdomen: Soft, NTTP, ND, hyperactive BS, no markedly appreciated HSM. Extremities: No cyanosis, no clubbing, no marked peripheral edema noted. Neurological: Patient awake, alert, oriented as noted, cognitive function intact; pupils equally reactive to light and accommodation, cranial nerves II- XII grossly normal, moving all 4 extremities, no focal deficits, strength moderately globally decreased. Psychiatric: Affect appears flat, fatigued, no acute evidence of depressive or anxiety feelings but patient certainly is high risk given impending diagnosis. Results Lab / Micro Data 08/09/23 12:45 08/09/23 12:45 Labs: Laboratory Results - last 24 hr 08/09/23 12:45: WBC 7.2, RBC 4.30 L, Hgb 12.9 L, Hct 39.9 L, MCV 92.8, MCH 30.0, MCHC 32.3, RDW Std Deviation 46.7 H, RDW Coeff of Maru 13.7, Plt Count 280, MPV 10.6, Immature Gran % (Auto) 0.300, Neut % (Auto) 68.7, Lymph % (Auto) 19.7, [place] % (Auto) 8.8, Eos % (Auto) 1.8, Baso % (Auto) 0.7, Absolute Neuts (auto) 4.9, Absolute Lymphs (auto) 1.41, Nucleated RBC % 0, PT 13.6, INR 1.0, Sodium 138, Potassium 3.2 L, Chloride 104, Carbon Dioxide 30.0, Anion Gap 4 L, BUN 24 H , Creatinine 0.73, Estim Creat Clear Calc 64.45, Est GFR (MDRD) Af Amer 134, Est GFR (MDRD) Non-Af 110, BUN/Creatinine Ratio 32.9 H, Glucose 164 H, Calcium 9.0, Total Bilirubin 3.80 H, Direct Bilirubin 3.16 H, AST 58 H, ALT 175 H, Alkaline Phosphatase 898 H, Total Protein 6.7, Albumin 3.3, Globulin 3.4, Lipase 44 Assessment & Plan Assessment/Plan (1) Mass of pancreas: (2) Liver masses: PLAN: Plan The patient is a 78 y/o M w/ PMHx: HTN, Former tobacco use, OA, Chart reported Diabetes mellitus type II who presents to the [facility] ED on 08/09/23 with history of recent outpatient evaluation including 08/07/2023 abdominal MRI with and without contrast with innumerable solid masses throughout the liver consistent with metastases, largest measuring up to 3.5 cm, possible 2.7 cm neoplasm in the head of the pancreas, distended gallbladder with sludge, mild intra and extrahepatic biliary dilatation and 08/08/2023 evaluation labs with T. bili 3.80, AST/LT 54/156, alk phos 873 with pending CA 19-[address] Serra with 6-week history of poor appetite, decreased oral intake with weight loss reportedly not taking his medications for at least a week because of his symptoms with no fevers or chills with PCP discussion with gastroenterology with referral to ED for consideration ERCP. #1. Adult failure to thrive with Jaundice secondary to hyperbilirubinemia, transaminitis secondary to obstructive metastatic process with noted liver masses as well as neoplasm in the head of the pancreas: Will admit to [facility] given BP improved in the ED per discussion with ED staff without intervention following initial to SBP 180s, will maintain on IV PPI, will allow clear liquids with n.p.o. status after midnight, will continue judicious hydration, will trend hepatic function, will have antiemetics as well as nausea regimen, nutrition consulted given recent weight loss and poor intake, gastroenterology consulted for ERCP consideration in AM. Unfortunately patient may not be able to have a liver biopsy until at least Saturday but it is unclear at that time if will be available, will need to be clarified. #2. Hypertension, uncontrolled: Admission presentation with BP 200/72 and unfortunate history of patient being unable to take any of his medications secondary to recently acutely diagnosed intra-abdominal pancreatic mass and liver masses as well, will attempt to resume lisinopril and amlodipine if able, temporally hold hydrochlorothiazide given planned judicious hydration after midnight with n.p.o. status, as needed IV hydralazine. #3. Hypokalemia: Admission K+ 3.2, magnesium level requested, supplementation given, repeat level in AM. #4. Chart reported Diabetes mellitus type II: From current list does not appear to be on medication but clarifying, will obtain hemoglobin A1c to be cautious, will allow clears with n.p.o. status after midnight for GI evaluation and potentially ERCP, in the interim will maintain on every 6 hours accu checks w/ ISS. #5. Former tobacco use: Encourage continued tobacco cessation. #6. Severe protein calorie malnutrition: Evidenced by significant poor oral intake, weight loss over a short segment of time, nutrition will be consulted. #7. DVT prophylaxis: SCDs, defer chemoprophylaxis for planned intervention as noted. #8. CODE status: Patient HCPOA and healthcare power of associate attorney are not in place but he notes his who is present as well as his son would be his decision makers if necessary. Discussed CODE status at length including difference between FULL code, DNR-CCA and DNR-CC status. Following discussions about the differences in these status, requested Full Code status. Current situation with potentially pancreatic cancer with metastases discussed and prognosis also discussed. Noted that certainly tissue is necessary to know the exact situation as far as cancer type and determine prognosis. Advanced Care Planning Face to Face Time: 16 minutes. Charges/Coding Visit Charges Inpatient E&M: 74129 Init Hosp L3 Procedures Hospitalists Procedures: 86856 Advncd Care Plan 30 Min
[2023-08-09 14:26] VITALS: BP 200/72; PULSE 56; RESP 14; TEMP 35.7; O2SAT 99
[2023-08-09] MEDS: amLODIPine 5 MG Tablet PO (14:48)
[2023-08-09] MEDS: Lisinopril 20 MG Tablet PO (14:48)
[2023-08-09 14:53] VITALS: BP 194/73; PULSE 68
[2023-08-09 15:13] VITALS: BP 189/78; PULSE 55; RESP 16; TEMP 36.6; O2SAT 100
[2023-08-09 15:16] VITALS: BMI 21.9
[2023-08-09 15:17] LABS: Magnesium 2.2 mg/dL (1.6-2.6); Phosphorus 2.7 mg/dL (2.5-4.9)
--- NOTE | 2023-08-09 16:10 | CHAPLAIN ---
Type of Pastoral Visit _x__ Initial Visit ___ Follow-up Visit ___ On-call Visit ___ General Patient Visit ___ Spiritual Assessment ___ Family Conference ___ Bereavement ___ Rapid Response ___ Code Blue ___ Other (describe below) Pastoral Care Referral From _x__ Patient _x__ Family ___ Nurse ___ Physician ___ Tractor Crane Engineer ___ Supervisor Counseling And Guidance ___ Other (describe below) Sacrament/Intervention _x__ Active listening ___ Anointing ___ Adventist ___ Bereavement ___ Communion ___ Dorie exploration ___ ___ Life review _x__ Prayer ___ Reconciliation ___ Sacrament of Sick _x__ Supportive presence ___ Wedding ___ Other (describe below) Pastoral Comments patient has received some difficult news about a health issue and will be having more tests and a biopsy on Saturday; pt will be waiting over the weekend for the same; spouse and brother are in the room; 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
[2023-08-09] MEDS: Creon 24,000 unit DR Capsule 1 CAP PO ×2 (16:37→22:39)
[2023-08-09] MEDS: 0.9% Normal Saline (1000mL) 1,000 ML 100 ML IV (16:37)
[2023-08-09] MEDS: Pantoprazole Sodium 40 MG in 0.9% Normal Saline (100mL MB+) 100 ML 330 MG IV ×2 (16:37→22:22)
[2023-08-09 17:28] LABS: Bedside Glucose 132 mg/dL (74-106)
[2023-08-09] MEDS: Potassium Chloride Oral Tablet 20 MEQ 40 MEQ PO (17:41)
[2023-08-09 22:00] VITALS: BP 188/69; PULSE 61; RESP 18; TEMP 36.6; O2SAT 100
[2023-08-09 22:10] VITALS: O2SAT 98
[2023-08-10] VITALS (14 sets, daily range): BP systolic 115–186; BP diastolic 61–77; PULSE 53–75; RESP 16–18; TEMP 36.4–36.9; O2SAT 96–100; BMI 21.9
[2023-08-10 00:42] LABS: Bedside Glucose 154 mg/dL (74-106)
[2023-08-10] MEDS: 0.9% Normal Saline (1000mL) 1,000 ML 100 ML IV (02:53)
[2023-08-10] MEDS: hydrALAZINE 20 MG/ML Vial 10 MG IV (04:07)
--- NOTE | 2023-08-10 05:00 | EKG12_ITS ---
Test Reason : AM EKG Blood Pressure : / mmHG Vent. Rate : 052 BPM Atrial Rate : 052 BPM P-R Int : 268 ms QRS Dur : 148 ms QT Int : 444 ms P-R-T Axes : 072 056 063 degrees QTc Int : 412 ms Sinus bradycardia with 1st degree A-V block Right bundle branch block Abnormal ECG Confirmed by Kenney Fernandez ([id number]), editor greeting card NEGIN LEE ([id number]) on 08/13/2023 8:03:46 AM Referred By: Confirmed By:Kenney Fernandez
[2023-08-10 05:16] LABS: Absolute Lymphocyte Count 1.45 X10^3/uL (0.83-4.51); Absolute Neutrophil Count 4.4 X10^3/uL (2.0-7.7); Basophil# 0.04 X10^3/uL; Basophil% 0.6 % (0-1); Eosinophil# 0.22 X10^3/uL; Eosinophils% 3.3 % (0-5); Hematocrit 38.1 % (40-54); Hemoglobin 12.5 g/dL (13.0-16.5); Lymphocyte # 1.45 X10^3/ul (0.83-4.51); Lymphocyte % 21.7 % (19-41); Mean Corp Hgb Conc 32.8 g/dL (32-36); Mean Corpuscular Hgb 30.6 pg (27.0-32.0); Mean Corpuscular Volume 93.2 fL (80-94); Mean Platelet Vol. 10.8 fl (6.2-12.0); Monocyte# 0.56 X10^3/uL; Monocyte% 8.4 % (0-10); NRBC Flagged by Analyzer 0 % (0-5); Neutrophil # 4.38 X10^3/uL (2.7-7.7); Neutrophil % 65.7 % (47-70); Platelet Count 246 K/mm3 (150-450); RBC Distribution Width CV 13.8 % (11.6-14.6); RBC Distribution Width SD 47.2 fl (35.1-43.9); Red Blood Count 4.09 M/mm3 (4.6-6.2); White Blood Count 6.7 K/mm3 (4.4-11.0)
[2023-08-10 05:26] LABS: International Normalized Ratio 1.1; Partial Thromboplast Time 26.4 Seconds (24.1-36.2); Prothrombin Time (Protime)PT. 14.1 SECONDS (11.7-14.9)
[2023-08-10 05:47] LABS: AST(SGOT) 56 U/L (15-37); Alanine Aminotransfer ALT/SGPT 160 U/L (16-61); Alkaline Phosphatase 819 U/L (45-117); Anion Gap 5 (5-15); BUN 20 mg/dL (7-18); BUN/Creat Ratio 26.3 RATIO (10-20); Bilirubin, Direct 2.76 mg/dL (0.00-0.30); Calcium,Total 8.7 mg/dL (8.5-10.1); Chloride 112 mmol/L (98-107); Creatinine, Serum 0.76 mg/dL (0.70-1.30); EST Glomerular Filtration Rate 105 mL/min (>60); Est Glom Filt Rate - Afr Amer 128 mL/min (>60); Estimated Creatinine Clearance 64.45 ml/min; Globulin 3.3 g/dL (2.2-4.2); Glucose 142 mg/dL (74-106); Potassium 3.9 mmol/L (3.5-5.1); Protein, Total 6.3 g/dL (6.4-8.2); Sodium Level 144 mmol/L (136-145)
[2023-08-10 06:39] LABS: Bedside Glucose 147 mg/dL (74-106)
--- NOTE | 2023-08-10 07:55 | NURSING ---
report given to surgical staff, scd's placed on pt and pt to procedure w/
[2023-08-10] MEDS: Lubricating Jelly 60 GM Tube 30 GM (07:56)
--- NOTE | 2023-08-10 08:15 | RAD_ITS ---
EXAM: FL FLUOROSCOPY < 1 HOUR CLINICAL INDICATION: ERCP TECHNIQUE: Fluoroscopy with 5 fluoroscopic spot views of the right upper quadrant obtained for endoscopic cholangiogram and stent placement. COMPARISON: No relevant prior studies available. FINDINGS: Contrast injected into the biliary tree via endoscopic approach demonstrates the distal portion of the common bile duct to be significantly narrowed with dilatation of the more proximal segment. Subsequent placement of a stent along the narrowed segment of the common bile duct. See operative note for additional information. Total fluoroscopy time of 1 minute. 61.3 mGy total dose. RAD/ERCP Biliary/Pancreas IMPRESSION: As above. Electronically Signed: Raffi Soriano MD at 10:08 EDT ,
--- NOTE | 2023-08-10 08:20 | FLU_PTH ---
PATIENT: AMBROSE TONEY LOC: MS3 U#:[id number] AGE/SX: 78/M ROOM: [facility] RE08/09/[address]: Dr. Sang Baker MD : 1945 BED: 1 DIS: 08/12/2023 SPEC #: [id number] RECD: 08/12/23 08:45 STATUS: MELLISSA POTTER #: [id number] COSME: 08/10/23 08:[address]: Alex Vogt DEPT: CYTOLOGY RECD BY: Rufina Benavides ENTERED: 08/12/23 08:50 SP TYPE: Fluid OTHR DR: MD Dr. Phylicia Garcia DO Dr. Nicholas F Kotsonis, MD Dr. Prakash Chand, MD Tissues: A - Bile duct, NOS B - Bile duct, NOS Procedures: Special Stain Group II Surgery Specimen Level III Surgery Specimen Level IV Cytospin Fluid HEADER OPERATION: ERCP with cytology brushings and biliary stent placement PRE-OP DIAGNOSIS: Mass of pancreas, liver masses TISSUE SUBMITTED: A- Biliary stricture brushings, B- Biliary stricture slides for cytology DIAGNOSIS CYTOLOGY A. Biliary stricture brushings (cytospin and cellblock): Atypical ductal epithelial cells are present suspicious for malignancy. B. Biliary stricture, brushings (smears): Positive for malignant cells, non-small cell carcinoma, adenocarcinoma. AM/mr 08/13/2023 COMMENT Please see corresponding surgical case [id number]. CYTOLOGY STUDY Slides are reviewed. CYTOLOGY GROSS A. Received is 1 brush tip with 0.5 ml of light-yellow fluid labeled with the patient's name and and designated per the requisition as Biliary stricture brushings. Submitted for cytology preparation including cell block. B. Received are 3 smears labeled with the patient's name and designated per the requisition as Biliary stricture slides for cytology. Submitted for staining. Mr 08/12/2023 TC:0 CPT: 56200,37426,24234
[2023-08-10 08:29] LABS: Hemoglobin A1c 6.5 % (3.8-5.6)
--- NOTE | 2023-08-10 09:09 | OP.ERCP_ITS ---
Patient Name: Ghassan Renee Procedure Date: 08/10/2023 7:46 AM Date of : 1945 Age: 78 Procedure: ERCP Indications: Jaundice, Elevated liver enzymes, Malignant tumor of the head of pancreas Providers: Alex Vogt DO Medicines: Monitored Anesthesia Care Patient Profile: This is a 78 year old male. Refer to note in patient chart for documentation of history and physical. This patient has no history of previous ERCP. Complications: No immediate complications. Procedure: Pre-Anesthesia Assessment: - Prior to the procedure, a History and Physical was performed, and patient medications and allergies were reviewed. The patient is competent. The risks and benefits of the procedure and the sedation options and risks were discussed with the patient. All questions were answered and informed consent was obtained. Patient identification and proposed procedure were verified by the physician in the pre-procedure area. Mental Status Examination: alert and oriented. Airway Examination: normal oropharyngeal airway and neck mobility. Respiratory Examination: clear to auscultation. CV Examination: normal. Prophylactic Antibiotics: The patient does not require prophylactic antibiotics. Prior Anticoagulants: The patient has taken no anticoagulant or antiplatelet agents. ASA Grade Assessment: III - A patient with severe systemic disease. After reviewing the risks and benefits, the patient was deemed in satisfactory condition to undergo the procedure. The anesthesia plan was to use general anesthesia. Immediately prior to administration of medications, the patient was re-assessed for adequacy to receive sedatives. The heart rate, respiratory rate, oxygen saturations, blood pressure, adequacy of pulmonary ventilation, and response to care were monitored throughout the procedure. The physical status of the patient was re-assessed after the procedure. After obtaining informed consent, the scope was passed under direct vision. Throughout the procedure, the patient's blood pressure, pulse, and oxygen saturations were monitored continuously. The Duodenoscope was introduced through the mouth, and advanced to the duodenum and used to inject contrast into the bile duct. The ERCP was accomplished without difficulty. The patient tolerated the procedure well. Scope In: 8:32:26 AM Scope Out: 8:59:49 AM Total Procedure Duration Time 0 hours 27 minutes 23 seconds Findings: The signals officer film was normal. The esophagus was successfully intubated under direct vision. The scope was advanced to a normal major papilla in the descending duodenum without detailed examination of the pharynx, larynx and associated structures, and upper GI tract. The upper GI tract was grossly normal. The bile duct was deeply cannulated with the short-nosed traction sphincterotome. Contrast was injected. I personally interpreted the bile duct images. There was brisk flow of contrast through the ducts. Image quality was excellent. Contrast extended to the entire biliary tree. Opacification of the entire biliary tree except for the cystic duct and gallbladder and main bile duct was successful. The maximum diameter of the ducts was 10 mm. The lower third of the main bile duct contained a single localized stenosis 5 mm in length. The main bile duct was markedly dilated, secondary to a stricture. The largest diameter was 12 mm. A straight Roadrunner wire was passed into the biliary tree. A 5 mm biliary sphincterotomy was made with a traction (standard) sphincterotome using ERBE electrocautery. There was no post-sphincterotomy bleeding. The biliary tree was swept with a 12 mm balloon starting at the bifurcation. Sludge was swept from the duct. All stones were removed. Dilation of the lower third of the main bile duct with 5-7-8.5 Fr catheter dilator was successful. Cells for cytology were obtained by brushing in the lower third of the main bile duct. One 10 mm by 6 cm metal stent was placed 5 cm into the common bile duct. Bile flowed through the stent. The stent was in good position. Dilation of the left main hepatic duct with 5-7-8.5 Fr catheter dilator was successful. Impression: - A single localized biliary stricture was found in the lower third of the main bile duct. The stricture was malignant appearing. - The entire main bile duct was markedly dilated, secondary to a stricture. - Choledocholithiasis was found. Complete removal was accomplished by biliary sphincterotomy and balloon extraction. - A biliary sphincterotomy was performed. - The biliary tree was swept. - The lower third of the main bile duct was successfully dilated. - Cells for cytology obtained in the lower third of the main duct. - One metal stent was placed into the common bile duct. Procedure Code(s): --- Professional --- 75238, Endoscopic retrograde cholangiopancreatography (ERCP); with placement of endoscopic stent into biliary or pancreatic duct, including pre- and post-dilation and guide wire passage, when performed, including sphincterotomy, when performed, each stent 68932, Endoscopic retrograde cholangiopancreatography (ERCP); with removal of calculi/debris from biliary/pancreatic duct(s) 82344, 26, Endoscopic catheterization of the biliary ductal system, radiological supervision and interpretation 31001, Unlisted procedure, biliary tract CPT copyright 2021 [employer]. All rights reserved. The codes documented in this report are preliminary and upon senior mechanical technician review may be revised to meet current compliance requirements. Alex Vogt DO 08/10/2023 9:09:04 AM This report has been signed electronically. Number of Addenda: 0 Note Initiated On: 08/10/2023 7:46 AM
--- NOTE | 2023-08-10 09:09 | OP.CCLET_ITS ---
08/10/2023 Phylicia Serra [address] [place] [address] Re : ERCP procedure for Ghassan Pottsjoya Dear Dr. Serra This procedure was performed on Thursday, August 10, 2023. My impressions and recommendations are as follows: Impressions : - A single localized biliary stricture was found in the lower third of the main bile duct. The stricture was malignant appearing. - The entire main bile duct was markedly dilated, secondary to a stricture. - Choledocholithiasis was found. Complete removal was accomplished by biliary sphincterotomy and balloon extraction. - A biliary sphincterotomy was performed. - The biliary tree was swept. - The lower third of the main bile duct was successfully dilated. - Cells for cytology obtained in the lower third of the main duct. - One metal stent was placed into the common bile duct. Recommendations : My findings are described in the full procedure note, which is enclosed. If I can be of further assistance, please feel free to contact me at . Sincerely, Alex Vogt DO 08/10/2023 9:09:04 AM This report has been signed electronically.
[2023-08-10 09:53] LABS: Bedside Glucose 154 mg/dL (74-106)
--- NOTE | 2023-08-10 09:54 | PCM.PN.HOSP ---
Reason for Visit Reason for Visit: Diagnoses Other specified diseases of pancreas (08/09/23) Hepatomegaly, not elsewhere classified (08/09/23) Objective Data Objective Data Vital Signs: Vital Signs Temp Pulse Resp BP Pulse Ox O2 Del Method 97.9 F 69 16 132/67 H 98 Room Air 08/10/23 09:35 08/10/23 09:35 08/10/23 09:35 08/10/23 09:35 08/10/23 09:35 08/10/23 09:35 Oxygen Delivery Method Room Air Weight: 131 lb 15.852 oz Body Mass Index (BMI) 21.9 Intake & Output: Intake and Output for Last 24 Hours 08/08/23 08/09/23 08/10/23 23:59 23:59 23:59 Intake Total 223.33 / 663.33 1433.33 / 1433.33 Balance 223.33 / 663.33 1433.33 / 1433.33 Lab / Micro Data 08/10/23 05:05 08/10/23 05:05 Labs: Laboratory Results - last 24 hr 08/09/23 12:45: WBC 7.2, RBC 4.30 L, Hgb 12.9 L, Hct 39.9 L, MCV 92.8, MCH 30.0, MCHC 32.3, RDW Std Deviation 46.7 H, RDW Coeff of Maru 13.7, Plt Count 280, MPV 10.6, Immature Gran % (Auto) 0.300, Neut % (Auto) 68.7, Lymph % (Auto) 19.7, [place] % (Auto) 8.8, Eos % (Auto) 1.8, Baso % (Auto) 0.7, Absolute Neuts (auto) 4.9, Absolute Lymphs (auto) 1.41, Nucleated RBC % 0, PT 13.6, INR 1.0, Sodium 138, Potassium 3.2 L, Chloride 104, Carbon Dioxide 30.0, Anion Gap 4 L, BUN 24 H, Creatinine 0.73, Estim Creat Clear Calc 64.45, Est GFR (MDRD) Af Amer 134, Est GFR (MDRD) Non-Af 110, BUN/Creatinine Ratio 32.9 H, Glucose 164 H, Calcium 9.0, Phosphorus 2.7, Magnesium 2.2, Total Bilirubin 3.80 H, Direct Bilirubin 3.16 H, AST 58 H, ALT 175 H, Alkaline Phosphatase 898 H, Total Protein 6.7, Albumin 3.3, Globulin 3.4, Lipase 44 08/09/23 16:35: POC Glucose 132 H 08/09/23 22:26: POC Glucose 154 H 08/10/23 05:05: WBC 6.7, RBC 4.09 L, Hgb 12.5 L, Hct 38.1 L, MCV 93.2, MCH 30.6, MCHC 32.8, RDW Std Deviation 47.2 H, RDW Coeff of Maru 13.8, Plt Count 246, MPV 10.8, Immature Gran % (Auto) 0.300, Neut % (Auto) 65.7, Lymph % (Auto) 21.7, [place] % (Auto) 8.4, Eos % (Auto) 3.3, Baso % (Auto) 0.6, Absolute Neuts (auto) 4.4, Absolute Lymphs (auto) 1.45, Nucleated RBC % 0, PT 14.1, INR 1.1, APTT 26.4, Sodium 144, Potassium 3.9, Chloride 112 H, Carbon Dioxide 27.0, Anion Gap 5, BUN 20 H, Creatinine 0.76, Estim Creat Clear Calc 64.45, Est GFR (MDRD) Af Amer 128, Est GFR (MDRD) Non-Af 105, BUN/Creatinine Ratio 26.3 H, Glucose 142 H, Hemoglobin A1c 6.5 H, Calcium 8.7, Total Bilirubin 3.50 H, Direct Bilirubin 2.76 H, AST 56 H, ALT 160 H, Alkaline Phosphatase 819 H, Total Protein 6.3 L, Albumin 3.0 L, Globulin 3.3 08/10/23 05:22: POC Glucose 147 H 08/10/23 09:35: POC Glucose 154 H Physical Exam Narrative Seen and examined. Patient was admitted with generalized weakness, loss of weight adult failure to thrive, Not taking his medication for 1 week and abnormal lab values and MRI findings from PCP Had ERCP in the morning. Patient denies any family history or personal history of prior liver, gallbladder or pancreatic disease. Feels mild sore throat after ERCP Physical exam General: Alert, Oriented x3, Cooperative HEENT: Icterus positive. Atraumatic, PERRLA, EOMI, Normocephalic Oral: Oral mucosa moist. No Gingival or Mucosal Lesions/ Ulcerations Neck: Supple, No JVD, Negative Carotid Bruits Chest wall/Lungs: Air entry diminished in bilateral lung bases. No crepitation/rhonchi Cardiovascular: Regular rate, Regular Rhythm, Normal S1, Normal S2, No M/G/R Abdomen: Mild liver enlarged. Spleen not peripheral. Bowel Sounds Present, Soft, Non Tender, Non-Distended : No dysuria. No renal angle tenderness. No suprapubic tenderness. Extremities: No edema, Capillary Refill Less than 3 Seconds Skin: No rashes, No breakdown Musculoskeletal: No Tenderness to Palpation of Joints or Extremities Neurological: Cranial nerves II-XII grossly intact, DTR 2+/4. No acute focal neurological deficit. Psych/Mental Status: Flat affect. Assessment & Plan Assessment/Plan (1) Mass of pancreas: (2) Liver masses: PLAN: Plan The patient is a 78 y/o M Admitted with 6-week history of decreased appetite weight loss with abnormal lab value and abnormal MRI reading showing liver nodules and pancreatic mass. She does not drink alcohol or smoke cigarettes. Was admitted for ERCP. #1.Obstructive jaundice acute liver injury with obstructive jaundice,mainly due to biliary stricture, pancreatic mass and multiple liver metastasis clinically metastatic pancreatic mass: The patient is admitted on [facility] MRI with and without contrast shows innumerable solid mass liver consistent with metastasis, largest measuring 3.5 cm, possible 2.7 cm neoplasm in head of pancreas, distended gallbladder and sludge with intra and extrahepatic biliary dilatation. CA 19-9 and AFP are pending ERCP 08/09/2023 Impressions : - A single localized biliary stricture was found in the lower third of the main bile duct. The stricture was malignant appearing. - The entire main bile duct was markedly dilated, secondary to a stricture. - Choledocholithiasis was found. Complete removal was accomplished by biliary sphincterotomy and balloon extraction. - A biliary sphincterotomy was performed. - The biliary tree was swept. - The lower third of the main bile duct was successfully dilated. - Cells for cytology obtained in the lower third of the main duct. - One metal stent was placed into the common bile duct. Liver chemistry reviewed. Mainly direct hyperbilirubinemia, improving. Transaminases show slight improvement. Alkaline phosphatase mild improvement. Plan for CT-guided liver biopsy on Saturday #2. Hypertension, uncontrolled: Admission presentation with BP 200/72. Latest blood pressure is controlled. Home medications continued with holding parameters #3. Hypokalemia: Admission K+ 3.2, repeat potassium normal 3.9. Serum magnesium and phosphorus are normal range. #4. Diabetes mellitus type II: A1c 6.5%. Glucose 142 in BMP. #5. Former tobacco use: Encourage continued tobacco cessation. #6. Severe protein calorie malnutrition: Evidenced by significant poor oral intake, weight loss over a short segment of time, nutrition will be consulted. #7. DVT prophylaxis: SCDs, defer chemoprophylaxis for planned intervention as noted. #8. CODE status: Patient HCPOA and healthcare power of pavilion cutter are not in place but he notes his who is present as well as his son would be his decision makers if necessary. Discussed CODE status at length including difference between FULL code, DNR-CCA and DNR-CC status. Following discussions about the differences in these status, requested Full Code status. Total time of the visit including total time spent in counseling or coordination of care, (more than 50% of the total time, spent in obtaining medical information from nurses and other ancillary care providers,explaining to the patient about labs, imaging, diagnosis and management of active complex medical conditions), detailed history taking, high suspicion of pancreatic neoplasm with high potential of cancer with liver metastasis, review of labs and imaging and ERCP with patient, his and adopted son is 40 minutes. Charges/Coding Visit Charges Inpatient E&M: 09004 Subs Hosp L3
--- NOTE | 2023-08-10 10:35 | NURSING ---
pt has returned from procedure
[2023-08-10] MEDS: Pantoprazole Sodium 40 MG in 0.9% Normal Saline (100mL MB+) 100 ML 330 MG IV ×2 (10:56→21:54)
[2023-08-10] MEDS: Creon 24,000 unit DR Capsule 1 CAP PO ×3 (10:56→20:30)
[2023-08-10] MEDS: amLODIPine 10 MG Tablet PO (10:57)
[2023-08-10] MEDS: Lisinopril 20 MG Tablet PO (10:57)
[2023-08-10 11:43] LABS: Bedside Glucose 205 mg/dL (74-106)
--- NOTE | 2023-08-10 12:50 | CASEMGMT ---
RN?CM?REGULATORY AFFAIRS DIRECTOR?CM?to room to meet with patient for initial transition planning/care coordination?assessment.?RN?CM?introduced self and role at [facility].? Pt voices understanding and consents to?assessment?at this time.? Pt resting in bed in no distress at this time.? @ bedside. Pt is A/O at this time and answers all questions appropriately.?? Care providers, pharmacy, and demographics verified/updated at this time. PCP: Dr Serra. Pt also goes to [facility] twice a year. Specialists: none Preferred Pharmacy: [facility] Retail Insurance: [employer]. VA benefits. [facility] not listed in [facility] Search. Call placed to registration to have this added. Pt states [facility] not [facility] and agreeable to having hospital stay billed to [employer]. Registration aware. Prescription Benefit:?yes Living Will/HPOA:?Pt does not currently have LW/HCPOA and interested in completing SW, Beatriz, made aware. Pt and made aware if SW unable to complete while @ [facility] that he can schedule appt w/SW as an out-pt to have this completed, if desired. They voice understanding. LNOK: , Tiffany. 4 adult children. Living Arrangements: Lives w/his in 2-story home w/3 steps to enter. FF. Pt's son, CLARENCE, and 4 grandchildren are staying w/them temporarily. Pt is independent w/ADL's and IADL's @ baseline. can assist if needed. Transportation:?Pt states drives self and states no transportation concerns at this time.? also drives. DME: ?Pt has a functioning glucometer w/supplies. Uses no AD to ambulate. Pt states no need for further DME at this time.? HHC/SNF: No hx of either. No needs identified at this time. PT/OT evals reviewed. Pt ambulated 350 ft today and no therapy recommended. Pt wishes to return home and states has no concerns with going home at time of discharge.? CM?to follow for any further discharge planning/needs.? Pt and voice no further concerns/needs at this time.? PLAN:??Home w/spousal support and discharge plans in place. Brigido CARREONN?RN?CM
[2023-08-10 16:16] LABS: Bedside Glucose 182 mg/dL (74-106)
--- NOTE | 2023-08-10 20:22 | NURSING ---
spoke to pts previous RN, states pt refused insulin coverage earlier.
[2023-08-10 22:30] LABS: Bedside Glucose 218 mg/dL (74-106)
[2023-08-11 02:25] VITALS: BP 158/68; PULSE 61; RESP 16; TEMP 36.6; O2SAT 97
[2023-08-11 06:00] VITALS: BMI 22.2
[2023-08-11 06:23] LABS: Absolute Lymphocyte Count 1.17 X10^3/uL (0.83-4.51); Absolute Neutrophil Count 5.7 X10^3/uL (2.0-7.7); Basophil# 0.05 X10^3/uL; Basophil% 0.6 % (0-1); Eosinophil# 0.13 X10^3/uL; Eosinophils% 1.7 % (0-5); Hematocrit 34.8 % (40-54); Hemoglobin 11.4 g/dL (13.0-16.5); Lymphocyte # 1.17 X10^3/ul (0.83-4.51); Lymphocyte % 14.9 % (19-41); Mean Corp Hgb Conc 32.8 g/dL (32-36); Mean Corpuscular Hgb 30.2 pg (27.0-32.0); Mean Corpuscular Volume 92.3 fL (80-94); Mean Platelet Vol. 11.9 fl (6.2-12.0); Monocyte# 0.73 X10^3/uL; Monocyte% 9.3 % (0-10); NRBC Flagged by Analyzer 0 % (0-5); Neutrophil # 5.74 X10^3/uL (2.7-7.7); Neutrophil % 73.2 % (47-70); Platelet Count 239 K/mm3 (150-450); RBC Distribution Width CV 13.8 % (11.6-14.6); RBC Distribution Width SD 46.9 fl (35.1-43.9); Red Blood Count 3.77 M/mm3 (4.6-6.2); White Blood Count 7.8 K/mm3 (4.4-11.0)
[2023-08-11 06:35] LABS: Bedside Glucose 189 mg/dL (74-106)
[2023-08-11 07:55] LABS: AST(SGOT) 42 U/L (15-37); Alanine Aminotransfer ALT/SGPT 129 U/L (16-61); Albumin, Serum 2.6 g/dL (3.2-5.0); Alkaline Phosphatase 685 U/L (45-117); Anion Gap 3 (5-15); BUN 13 mg/dL (7-18); BUN/Creat Ratio 20.7 RATIO (10-20); Bilirubin, Direct 1.15 mg/dL (0.00-0.30); Calcium,Total 8.1 mg/dL (8.5-10.1); Chloride 110 mmol/L (98-107); Creatinine, Serum 0.63 mg/dL (0.70-1.30); EST Glomerular Filtration Rate 131 mL/min (>60); Est Glom Filt Rate - Afr Amer 159 mL/min (>60); Estimated Creatinine Clearance 63.72 ml/min; Globulin 2.8 g/dL (2.2-4.2); Glucose 178 mg/dL (74-106); Potassium 3.3 mmol/L (3.5-5.1); Protein, Total 5.4 g/dL (6.4-8.2); Sodium Level 140 mmol/L (136-145)
[2023-08-11 08:07] LABS: AFP, Tumor Marker < 1.8 ng/mL (0.0-8.4)
[2023-08-11] MEDS: Creon 24,000 unit DR Capsule 1 CAP PO ×5 (08:14→18:52)
[2023-08-11] MEDS: amLODIPine 10 MG Tablet PO (08:15)
[2023-08-11] MEDS: Lisinopril 20 MG Tablet PO (08:15)
[2023-08-11 08:17] VITALS: O2SAT 95
[2023-08-11] MEDS: Pantoprazole Sodium 40 MG in 0.9% Normal Saline (100mL MB+) 100 ML 330 MG IV ×2 (08:19→21:00)
[2023-08-11 08:20] VITALS: BP 162/74; PULSE 72; RESP 16; TEMP 37; O2SAT 95
[2023-08-11] MEDS: Potassium Chloride Oral Tablet 20 MEQ 40 MEQ PO (09:45)
--- NOTE | 2023-08-11 10:43 | PN.HOSP_ITS ---
Reason for Visit Reason for Visit: Diagnoses Other specified diseases of pancreas (08/09/23) Hepatomegaly, not elsewhere classified (08/09/23) Objective Data Objective Data Vital Signs: Vital Signs Temp Pulse Resp BP Pulse Ox O2 Del Method 98.6 F 72 16 162/74 H 95 Room Air 08/11/23 08:20 08/11/23 08:20 08/11/23 08:20 08/11/23 08:20 08/11/23 08:20 08/11/23 08:20 Oxygen Delivery Method Room Air Weight: 133 lb 6.075 oz Body Mass Index (BMI) 22.2 Intake & Output: Intake and Output for Last 24 Hours 08/09/23 08/10/23 08/11/23 23:59 23:59 23:59 Intake Total 223.33 / 663.33 4403.33 / 4403.33 110 / 110 Balance 223.33 / 663.33 4403.33 / 4403.33 110 / 110 Medical Nutrition Assessment Dietitian: Malnutrition Criteria Met Start: 08/10/23 17:15 Freq: Status: Active Protocol: Document 08/10/23 17:15 LAKISHA (Rec: 08/10/23 17:15 [facility] [id number]) Nutrition Malnutrition Evidence of Malnutrition Exists Yes Malnutrition (moderate): Chronic Evidenced By Weight Loss (Severe),Physical Changes (Mild) Clinical Problem Chronic Disease or Condition Related Malnutrition Etiology related to physiological changes limiting oral intakes Signs/Symptoms as evidenced by significant weight loss of 14.9% in 7 months based upon reported weight of 154lb about 7 months ago, decreased oral intakes and appetite for 2-3 weeks prior meeting < 75% of estimated nutrient needs, and mild muscle and fat wasting via clavicles, deltoids, temples, etc. Status Active Problem Recommendation Dietitian Recommendations/Changes Continue with regular diet as tolerated for liberalization. Will order Beneprotein with meals to help increase oral intakes and prevent further weight loss. This will also help with blood sugars. Encouraged pt and spouse to continue with snacks in between meals. Discussed options here or his spouse is bringing in protein shakes for him. Will continue to follow, monitor oral intakes and tolerance of ONS, and modify interventions as needed. Lab / Micro Data 08/11/23 05:28 08/11/23 05:28 Labs: Laboratory Results - last 24 hr 08/10/23 05:05: Tumor Marker AFP < 1.8, CA 19-9 Antigen Cancelled 08/10/23 11:25: POC Glucose 205 H 08/10/23 15:53: POC Glucose 182 H 08/10/23 21:56: POC Glucose 218 H 08/11/23 05:28: WBC 7.8, RBC 3.77 L, Hgb 11.4 L, Hct 34.8 L, MCV 92.3, MCH 30.2, MCHC 32.8, RDW Std Deviation 46.9 H, RDW Coeff of Maru 13.8, Plt Count 239, MPV 11.9, Immature Gran % (Auto) 0.300, Neut % (Auto) 73.2 H, Lymph % (Auto) 14.9 L, [place] % (Auto) 9.3, Eos % (Auto) 1.7, Baso % (Auto) 0.6, Absolute Neuts (auto) 5.7, Absolute Lymphs (auto) 1.17, Nucleated RBC % 0, Sodium 140, Potassium 3.3 L , Chloride 110 H, Carbon Dioxide 27.0, Anion Gap 3 L, BUN 13, Creatinine 0.63 L, Estim Creat Clear Calc 63.72, Est GFR (MDRD) Af Amer 159, Est GFR (MDRD) Non-Af 131, BUN/Creatinine Ratio 20.7 H, Glucose 178 H, Calcium 8.1 L, Total Bilirubin 1.70 H, Direct Bilirubin 1.15 H, AST 42 H, ALT 129 H, Alkaline Phosphatase 685 H , Total Protein 5.4 L, Albumin 2.6 L, Globulin 2.8 08/11/23 06:11: POC Glucose 189 H Physical Exam Narrative Seen and examined. No acute issues. No fever. Patient is doing well. Jaundice and liver chemistry better. Patient was admitted with generalized weakness, loss of weight adult failure to thrive, Not taking his medication for 1 week and abnormal lab values and MRI findings from PCP Had ERCP in the morning. Patient denies any family history or personal history of prior liver, gallbladder or pancreatic disease. Feels mild sore throat after ERCP Physical exam General: Alert, Oriented x3, Cooperative HEENT: Icterus positive. Atraumatic, PERRLA, EOMI, Normocephalic Oral: Oral mucosa moist. No Gingival or Mucosal Lesions/ Ulcerations Neck: Supple, No JVD, Negative Carotid Bruits Chest wall/Lungs: Air entry diminished in bilateral lung bases. No crepitation/rhonchi Cardiovascular: Regular rate, Regular Rhythm, Normal S1, Normal S2, No M/G/R Abdomen: Mild liver enlarged. Spleen not peripheral. Bowel Sounds Present, Soft, Non Tender, Non-Distended : No dysuria. No renal angle tenderness. No suprapubic tenderness. Extremities: No edema, Capillary Refill Less than 3 Seconds Skin: No rashes, No breakdown Musculoskeletal: No Tenderness to Palpation of Joints or Extremities Neurological: Cranial nerves II-XII grossly intact, DTR 2+/4. No acute focal neurological deficit. Psych/Mental Status: Flat affect. Assessment & Plan Assessment/Plan (1) Mass of pancreas: (2) Liver masses: PLAN: Plan The patient is a 78 y/o M Admitted with 6-week history of decreased appetite weight loss with abnormal lab value and abnormal MRI reading showing liver nodules and pancreatic mass. She does not drink alcohol or smoke cigarettes. Was admitted for ERCP. #1.Obstructive jaundice acute liver injury with obstructive jaundice,mainly due to biliary stricture, pancreatic mass and multiple liver metastasis clinically metastatic pancreatic mass: The patient is admitted on [facility] floor MRI with and without contrast shows innumerable solid mass liver consistent with metastasis, largest measuring 3.5 cm, possible 2.7 cm neoplasm in head of pancreas, distended gallbladder and sludge with intra and extrahepatic biliary dilatation. CA 19-9 and AFP are pending ERCP 08/09/2023 Impressions : - A single localized biliary stricture was found in the lower third of the main bile duct. The stricture was malignant appearing. - The entire main bile duct was markedly dilated, secondary to a stricture. - Choledocholithiasis was found. Complete removal was accomplished by biliary sphincterotomy and balloon extraction. - A biliary sphincterotomy was performed. - The biliary tree was swept. - The lower third of the main bile duct was successfully dilated. - Cells for cytology obtained in the lower third of the main duct. - One metal stent was placed into the common bile duct. Liver chemistry reviewed. Mainly direct hyperbilirubinemia, improving. Transaminases show slight improvement. Alkaline phosphatase mild improvement. Plan for CT-guided liver biopsy on Thursday 08/10: Liver chemistry reviewed. Total bilirubin, direct bilirubin AST ALT and alkaline phosphatase improving. Ultrasound-guided liver biopsy ordered. Yesterday patient's PCP Dr. Arenas called me that CA 19-9 is 5875 therefore CA 19-9 from her was canceled. aFP less than 1.8 normal. #2. Hypertension, uncontrolled: Admission presentation with BP 200/72. Latest blood pressure is controlled. Home medications continued with holding parameters #3. Hypokalemia: Admission K+ 3.2, repeat potassium normal 3.9. Serum magnesium and phosphorus are normal range. 08/10: Potassium on low normal replaced. #4. Diabetes mellitus type II: A1c 6.5%. Glucose 142 in BMP. #5. Former tobacco use: Encourage continued tobacco cessation. #6. Severe protein calorie malnutrition: Evidenced by significant poor oral intake, weight loss over a short segment of time, nutrition will be consulted. #7. DVT prophylaxis: SCDs, defer chemoprophylaxis for planned intervention as noted. #8. CODE status: Patient HCPOA and healthcare power of commercial attorney are not in place but he notes his who is present as well as his son would be his decision makers if necessary. Discussed CODE status at length including difference between FULL code, DNR-CCA and DNR-CC status. Following discussions about the differences in these status, requested Full Code status. Charges/Coding Visit Charges Inpatient E&M: 04880 Subs Hosp L2
[2023-08-11 12:31] LABS: Bedside Glucose 187 mg/dL (74-106)
[2023-08-11 14:15] VITALS: BP 151/59; PULSE 60; RESP 16; TEMP 36.9; O2SAT 97
[2023-08-11 18:01] LABS: Bedside Glucose 179 mg/dL (74-106)
[2023-08-11 20:40] VITALS: BP 160/67; PULSE 69; RESP 16; TEMP 36.7; O2SAT 97
[2023-08-11] MEDS: 0.9% Saline Lock 10 ML Syringe IV (21:00)
[2023-08-11 22:04] LABS: Bedside Glucose 234 mg/dL (74-106)
[2023-08-12] VITALS (16 sets, daily range): BP systolic 135–159; BP diastolic 55–77; PULSE 55–86; RESP 10–18; TEMP 36.7–37; O2SAT 94–99; BMI 22.1
--- NOTE | 2023-08-12 | IMM_PTH ---
PATIENT: AMBROSE TONEY LOC: MS3 U#:[id number] AGE/SX: 78/M [place] [facility] [place]: Dr. Sang Baker MD : 1945 BED: 1 DIS: 08/12/2023 SPEC #: [id number] RECD: 08/13/23 11:27 STATUS: MELLISSA REQ #: [id number] COSME: 08/12/23 00:[address]: Sang Baker DEPT: IMMUNOHISTOCHEMISTRY RECD BY: Duncan Morton ENTERED: 08/13/23 11:29 SP TYPE: IMMUNO OTHR DR: MD Dr. Phylicia Garcia DO Dr. Prakash Chand, MD Tissues: Liver, NOS Procedures: RCC (add) NAPSIN A (add) CD56 (add) CEA (add) CHROMO (add) CK19 (add) CK20 (add) CK7 (add) CK8 (add) JOSE (add) HEP PAR (add) KI-67 (add) P53 (add) TTF1 (add) Vimentin (add) Pankeratin (initial) P40 (add) CDX2 (add) PSAP (add) MOC-31 (add) S-100 (add) PHYSICIAN & [place] [id number] SPECIMEN INFORMATION: Tissue Source: Liver biopsy Clinical Info: Liver mass Specimen Number: [id number] CPT code: 68896,76382j84 METHODOLOGY: Deparaffinized sections of prefer/formalin-fixed tissue or PAP/DQ stained slides are incubated with monoclonal/polyclonal antibodies/oligonucleotide probes. Localization is made via biotin free immunoperoxidase method. Appropriate controls are performed and reacted as expected. Results on target cell population are indicated in the following table: RESULTS: ANTIBODY / CLONE RESULT AE1-3 (AE1/AE3/PCK26) positive CK7 (OV-TL12/30) positive CK8 (29tqzkP11) positive CK20 (KS20.8) negative CDX2 (WCX4027W) negative MOC-31 (4561) positive Vimentin (V9) negative S-100 (4C4.9) negative CK19 (A53-B/A2.26) positive CD56 (123C3.D5) negative Chromo (LK2H10) negative TTF-1 (8G7G3/1) negative Napsin A (Rabbit Polyclonal) negative HepPar (OCh1E5) negative RCC (PN-15) negative PSAP (PASE/4LJ) negative P40 (BC28) negative JOSE (E29) positive CEA (11-7/TF-3HB-1) negative P53 (DO-7) positive, missense pattern Ki-67 (30-9) positive, 75% These tests were developed and their performance characteristics determined by [facility]. They may not have been cleared or approved by the U.S. Food and Drug Administration. The FDA has determined that such clearance or approval is not necessary. The above immunohistochemical/dualISH markers are ordered and reviewed by the Pathologist. INTERPRETATION: Liver, CT guided core biopsy: Metastatic adenocarcinoma. COMMENT: The IHC profile is consistent with a pancreatic primary. Clinical correlation is necessary. GRACY/ 08/14/2023
--- NOTE | 2023-08-12 | LIVB_PTH ---
PATIENT: AMBROSE TONEY LOC: MS3 U#:[id number] AGE/SX: 78/M ROOM: [facility] [place] RE08/09/[address]: Dr. Sang Baker MD : 1945 BED: 1 DIS: 08/12/2023 SPEC #: [id number] RECD: 08/12/23 11:12 STATUS: MELLISSA POTTER #: [id number] COSME: 08/12/23 00:[address]: Sang Baker DEPT: SURGICAL PATHOLOGY RECD BY: Rufina Benavides ENTERED: 08/12/23 11:12 SP TYPE: LIVER BX OTHR DR: MD Dr. Phylicia Garcia DO Dr. Prakash Chand, MD Tissues: Liver, NOS Procedures: Surgery Specimen Level V HEADER OPERATION: CT guided liver biopsy PRE-OP DIAGNOSIS: Liver mass TISSUE SUBMITTED: Martin-guage core x6 MICROSCOPIC DIAGNOSIS Liver, CT guided core biopsy: Metastatic non-small cell carcinoma, adenocarcinoma. See comment. / 08/13/2023 COMMENT Immunohistochemistry ([id number]) supports the above diagnosis and is consistent with a pancreatic primary. Please see corresponding cytology case [id number]. The specimen is evaluated at the time of biopsy by Dr. Huizar. Immediate Evaluation = Positive for malignant cells, non- small cell carcinoma, adenocarcinoma. MICROSCOPIC DESCRIPTION Slides are reviewed. GROSS DESCRIPTION Received in fixative is one container labeled with the patient's name and designated Liver biopsy. The specimen consists of multiple elongated fragments of dozier tissue measuring in aggregate 1.5 x 0.5 x 0.1cm. The specimen is totally submitted in one cassette. / 08/12/2023 TC:0 CPT:40176,35139c9,87801d9
[2023-08-12 05:55] LABS: Absolute Lymphocyte Count 1.27 X10^3/uL (0.83-4.51); Absolute Neutrophil Count 4.5 X10^3/uL (2.0-7.7); Basophil# 0.04 X10^3/uL; Basophil% 0.6 % (0-1); Eosinophil# 0.14 X10^3/uL; Eosinophils% 2.1 % (0-5); Hemoglobin 11.4 g/dL (13.0-16.5); Lymphocyte # 1.27 X10^3/ul (0.83-4.51); Lymphocyte % 19.2 % (19-41); Mean Corp Hgb Conc 33.5 g/dL (32-36); Mean Corpuscular Hgb 30.7 pg (27.0-32.0); Mean Corpuscular Volume 91.6 fL (80-94); Mean Platelet Vol. 11.5 fl (6.2-12.0); Monocyte# 0.63 X10^3/uL; Monocyte% 9.5 % (0-10); NRBC Flagged by Analyzer 0 % (0-5); Neutrophil # 4.52 X10^3/uL (2.7-7.7); Neutrophil % 68.3 % (47-70); Platelet Count 230 K/mm3 (150-450); RBC Distribution Width CV 13.6 % (11.6-14.6); RBC Distribution Width SD 45.8 fl (35.1-43.9); Red Blood Count 3.71 M/mm3 (4.6-6.2); White Blood Count 6.6 K/mm3 (4.4-11.0)
[2023-08-12 06:29] LABS: Bedside Glucose 174 mg/dL (74-106)
[2023-08-12 06:52] LABS: AST(SGOT) 44 U/L (15-37); Alanine Aminotransfer ALT/SGPT 138 U/L (16-61); Albumin, Serum 2.6 g/dL (3.2-5.0); Alkaline Phosphatase 625 U/L (45-117); Anion Gap 5 (5-15); BUN 22 mg/dL (7-18); BUN/Creat Ratio 36.9 RATIO (10-20); Bilirubin, Direct 0.96 mg/dL (0.00-0.30); Calcium,Total 8.5 mg/dL (8.5-10.1); Chloride 108 mmol/L (98-107); EST Glomerular Filtration Rate 140 mL/min (>60); Est Glom Filt Rate - Afr Amer 169 mL/min (>60); Estimated Creatinine Clearance 63.72 ml/min; Globulin 2.8 g/dL (2.2-4.2); Glucose 183 mg/dL (74-106); Potassium 3.7 mmol/L (3.5-5.1); Protein, Total 5.4 g/dL (6.4-8.2); Sodium Level 141 mmol/L (136-145)
[2023-08-12] MEDS: Midazolam 2 MG/2 ML Syringe IV (10:07)
[2023-08-12] MEDS: fentaNYL 100 MCG/2 ML Ampul IV ×3 (10:09→10:29)
[2023-08-12] MEDS: 0.9% Normal Saline (250mL Bag) 250 ML 15 ML IV (10:09)
[2023-08-12] MEDS: Lidocaine 2% (20 ml mdv) 20 ML Vial INFILT (10:25)
--- NOTE | 2023-08-12 10:54 | PRO.PCM_ITS ---
Procedure Report Date of Procedure: 08/12/23 Assessment & Plan Assessment/Plan (1) Liver masses: PLAN: PROCEDURE: CT DIRECTED CORE LIVER BIOPSY ORDERING PROVIDER: Dr. Cárdenas INDICATION: Male, 78 years old. Multiple liver masses. PROVIDER: ENRRIQUE Mota CONSENT: Written informed consent was obtained having explained the risks, benefits and alternatives in detail with the patient who accepted the risks and agreed to proceed. Laboratory review and clinical assessment was performed. PRE-PROCEDURE SEDATION ASSESSMENT: Current history and physical dictated by referring provider and reviewed. No clinical changes since date of exam. Patient has an ASA Class of 2. PROCEDURAL SEDATION PROTOCOL: The Drugs used were: 2 mg Versed, IV, and 75 mcg Fentanyl, IV. The sedation time was: 31 minutes, starting at 10:07 AM and terminated at 10:38 AM. The procedural sedation protocol was independently monitored by the department nurse. RADIATION DOSAGE (If Supplied By Facility): CTDIvol = 19.27 mGy, DLP = 342.3 mGycm Individualized dose optimization techniques were used for this CT. TECHNIQUE: The patient was placed in a supine position. Using CT image guidance with image documentation, a suitable location in the right lobe of the liver was identified. The skin surface was prepped with betadine and draped in a sterile fashion. 2% lidocaine was used for local anesthesia. Using a anterior approach, puncture of the liver was uneventful with an 18-gauge core needle system. 6, 18-gauge core samples were obtained, and submitted in formalin to the pathologist for further assessment. The needle was removed. An occlusive sterile dressing was applied. Patient tolerated the procedure well, and returned to the [facility] for nursing monitoring. IMPRESSION: 1. CT directed core needle biopsy of the liver, using CT image guidance with image documentation as described. 2. Procedural Sedation protocol utilized with independent monitoring. Procedures Radiology Radiology US Procedures: 53994 Liver Biopsy
[2023-08-12] MEDS: 0.9% Saline Lock 10 ML Syringe IV (11:31)
[2023-08-12] MEDS: Pantoprazole Sodium 40 MG in 0.9% Normal Saline (100mL MB+) 100 ML 330 MG IV (11:31)
[2023-08-12] MEDS: Potassium Chloride Oral Tablet 20 MEQ 40 MEQ PO ×2 (11:33→11:34)
[2023-08-12] MEDS: amLODIPine 10 MG Tablet PO (11:35)
[2023-08-12] MEDS: Creon 24,000 unit DR Capsule 1 CAP PO ×2 (11:35→15:11)
[2023-08-12] MEDS: Lisinopril 20 MG Tablet PO (11:36)
[2023-08-12 11:38] LABS: Bedside Glucose 160 mg/dL (74-106)
--- NOTE | 2023-08-12 12:26 | DCINST_ITS ---
Discharge Instructions Diet Discharge Diet: Low fat / Low cholesterol Activity Discharge Activity: Return to Normal Activity Dressing / Incision Call your doctor if you observe: Fever of 101 or Higher, Shortness of breath, Dizziness, Fainting spells, Swelling in the ankles, Chest pain and Increased palpitations (irregular heartbeat) Follow Up Care Test Results: Test results from this visit will be discussed in further detail at your follow- up appointment, if applicable. Discharge Plan Admission Admit Date/Time: 08/09/23 14:29 Attending Provider: Sang Baker Primary Care Provider: Phylicia Serra Consulting Providers: Kathy Brasher; Roshan Cárdenas Instructions Patient Instructions: RAD RN Biopsy Liver Dc, ENID RN Procedural Sedation Discharge Orders/Prescriptions Prescriptions: Continued lisinopril 20 MG tablet 20 mg PO BID amlodipine 10 MG tablet 10 mg PO DAILY hydrochlorothiazide 25 MG tablet 25 mg PO DAILY selenium 200 MCG tablet 200 mcg PO BID Creon 24,000-76,000 -120,000 unit capsule,delayed release(DR/EC) 1 cap PO 3XD Rx Instructions: TAKES WITH MEALS OR SNACKS cholecalciferol (vitamin D3) 1 tab PO DAILY Patient Comments: PT ORDERS ONLINE, DOESNT KNOW THE STRENGTH zinc sulfate 50 mg zinc (220 mg) tablet 50 mg PO DAILY testosterone 50 mg/5 gram (1 %) gel 50 mg transdermal DAILY Referrals / Follow Up: Phylicia Serra DO [Primary Care Provider] - Within 1 Week Alex Vogt DO [Med Staff - Active Staff] - Within 1 Month Disposition Disposition (needs filled in before D/C Order can be placed): Home, Self Care
--- NOTE | 2023-08-12 13:10 | PHA.DC.MR.R ---
Pharmacy PR Med Reconciliation Pharmacy Service has performed discharge medication reconciliation for this patient. The patient's discharge medication list was reviewed for discrepancies and discrepancies were resolved. Medications at Discharge Home Medications amlodipine 10 mg tablet 10 mg PO DAILY 02/03/15 hydrochlorothiazide 25 mg tablet 25 mg PO DAILY 02/03/15 lisinopril 20 mg tablet 20 mg PO BID 02/03/15 selenium 200 mcg tablet 200 mcg PO BID 08/07/19 cholecalciferol (vitamin D3) 1 tab PO DAILY 08/09/23 [id number]-niazqqce-botaxxv 24,000-76,000-120,000 unit capsule,delayed rel (Creon) 1 cap PO 3XD 08/09/23 testosterone 50 mg/5 gram (1 %) transdermal gel 50 mg transdermal DAILY 08/09/23 zinc sulfate 50 mg zinc (220 mg) tablet 50 mg PO DAILY 08/09/23
--- NOTE | 2023-08-12 13:55 | PCM.DC.SUM ---
Providers Date of Admission: 08/09/23 Primary Care Physician: Dr. Phylicia Serra, Consultations 08/09/23 15:05 Consult: Gastroenterology Routine Consulting Provider: Raphael Ospina Reason for Consult: ERCP EMERGENT Consult: No MD Notified: Yes Date Notified: 08/09/23 Time Notified: 14:32 Method of Notification: ED Physician Initiated Reason For Visit: SADE FFT, PANCREATIC/LIVER MASS, OBSTRUCTIVE Diagnosis Discharge Diagnosis (1) Liver masses: Status: Acute Code(s): R16.0 - Hepatomegaly, not elsewhere classified Medications at Discharge Home Medications amlodipine 10 mg tablet 10 mg PO DAILY 02/03/15 hydrochlorothiazide 25 mg tablet 25 mg PO DAILY 02/03/15 lisinopril 20 mg tablet 20 mg PO BID 02/03/15 selenium 200 mcg tablet 200 mcg PO BID 08/07/19 cholecalciferol (vitamin D3) 1 tab PO DAILY 08/09/23 [id number]-hzyegjwp-xepnwip 24,000-76,000-120,000 unit capsule,delayed rel (Creon) 1 cap PO 3XD 08/09/23 testosterone 50 mg/5 gram (1 %) transdermal gel 50 mg transdermal DAILY 08/09/23 zinc sulfate 50 mg zinc (220 mg) tablet 50 mg PO DAILY 08/09/23 Hospital Course Operations ERCP Procedures None Summary of Care Provided Minutes Spent on Discharge: 34 Hospital Course: Per HPI: The patient is a 78 y/o M w/ PMHx: HTN, Former tobacco use, OA, Chart reported Diabetes mellitus type II who presents to the [facility] ED on 08/09/23 with history of recent outpatient evaluation including 08/07/2023 abdominal MRI with and without contrast with innumerable solid masses throughout the liver consistent with metastases, largest measuring up to 3.5 cm, possible 2.7 cm neoplasm in the head of the pancreas, distended gallbladder with sludge, mild intra and extrahepatic biliary dilatation and 08/08/2023 evaluation labs with T. bili 3.80, AST/LT 54/156, alk phos 873 with pending CA 19-[address] Serra with 6-week history of poor appetite, decreased oral intake with weight loss reportedly not taking his medications for at least a week because of his symptoms with no fevers or chills with PCP discussion with gastroenterology with referral to ED for consideration ERCP. Patient has become more jaundiced in addition. Patient does report that he is been able to eat very small intermittent meals recently and has gained back potentially 1 pound may be 2 at the most. He denies any nausea or emesis or abdominal discomfort. Workup in the ED included T 96.3, heart rate 55, BP 200/72, respiratory rate 14, 100% on room air, CBC with WBC 7.2, hemoglobin 12.9, MCV 92.8, platelet 280 without marked shift, unremarkable coags, CMP with potassium 3.2, BUN/creatinine 24/0.73, glucose 164, T. bili 3.80, D bili 3.16, AST/ALT 58/175, alk phos 898, lipase 44. ED physician discussed case with patient PCP as well as gastroenterology Dr. Vogt with planned admission for ERCP. In the ED patient ministered Norvasc 5 mg x 1 as well as lisinopril 20 mg x 1 given elevated blood pressure not recently taking his medication. Hospital Course: 1. Obstructive jaundice secondary to pancreatic mass and bile duct stricture with multiple liver metastases?78-year-old male presented to the hospital at the discretion of his PCP as well as gastroenterology secondary to weight loss and MRI findings with multiple liver metastatic lesions. He had an ERCP done with brushings as well as a biliary sphincterotomy and metal stent placement which has resolved his jaundice and his LFTs are coming down nicely. He was admitted through the weekend for a CT-guided liver biopsy which was done today. In discussion with gastroenterology it was agreed that he could go home after the procedure with outpatient follow-up as it would take several days for the cytology and the pathology to come back. Of note he did have some choledocholithiasis on ERCP as well which was also treated. I discussed with him and his the possibility for discharge today after the CT-guided biopsy and they both expressed understanding of the risk benefits of going home and would like to go home today. Of note his AFP is less than 1.8, his CA 19-9 is 5877. 2. Essential hypertension, type 2 diabetes, severe protein calorie malnutrition are chronic medical conditions which complicate his care. His home medications were continued where appropriate Physical Exam Narrative General: Alert, Oriented x3, Cooperative, No apparent distress HEENT: Atraumatic, PERRLA, EOMI, Normocephalic Oral: Moist Mucosa Neck: Supple, No JVD Lungs: Diminished, Normal air movement, No rhonchi, No wheeze, No rales Cardiovascular: Regular rate, Regular Rhythm, Normal S1, Normal S2, No murmurs Abdomen: Soft, Non Tender, Non-Distended, No Hepato-splenomegaly Extremities: No edema, Capillary Refill Less than 3 Seconds Skin: No rashes, No breakdown Musculoskeletal: No Tenderness to Palpation of Joints or Extremities Neurological: No focal neurological deficits, Motor Exam 5/5 strength throughout, Sensory exam intact to light touch and pain Psych/Mental Status: Normal Affect, Appropriate Medical Records Data Medical Nutrition Assessment Dietitian: Malnutrition Criteria Met Start: 08/10/23 17:15 Freq: Status: Active Protocol: Document 08/10/23 17:15 LAKISHA (Rec: 08/10/23 17:15 [facility] [id number]) Nutrition Malnutrition Evidence of Malnutrition Exists Yes Malnutrition (moderate): Chronic Evidenced By Weight Loss (Severe),Physical Changes (Mild) Clinical Problem Chronic Disease or Condition Related Malnutrition Etiology related to physiological changes limiting oral intakes Signs/Symptoms as evidenced by significant weight loss of 14.9% in 7 months based upon reported weight of 154lb about 7 months ago, decreased oral intakes and appetite for 2-3 weeks prior meeting < 75% of estimated nutrient needs, and mild muscle and fat wasting via clavicles, deltoids, temples, etc. Status Active Problem Recommendation Dietitian Recommendations/Changes Continue with regular diet as tolerated for liberalization. Will order Beneprotein with meals to help increase oral intakes and prevent further weight loss. This will also help with blood sugars. Encouraged pt and spouse to continue with snacks in between meals. Discussed options here or his spouse is bringing in protein shakes for him. Will continue to follow, monitor oral intakes and tolerance of ONS, and modify interventions as needed. Weight / BMI Weight Weight: 132 lb 15.02 oz Body Mass Index (BMI) 22.1 ABG / Lab / Microbiology Data 08/12/23 05:08 08/12/23 05:08 Laboratory: Laboratory Results - last 24 hr 08/11/23 16:32: POC Glucose 179 H 08/11/23 21:45: POC Glucose 234 H 08/12/23 05:08: WBC 6.6, RBC 3.71 L, Hgb 11.4 L, Hct 34.0 L, MCV 91.6, MCH 30.7, MCHC 33.5, RDW Std Deviation 45.8 H, RDW Coeff of Maru 13.6, Plt Count 230, MPV 11.5, Immature Gran % (Auto) 0.300, Neut % (Auto) 68.3, Lymph % (Auto) 19.2, [place] % (Auto) 9.5, Eos % (Auto) 2.1, Baso % (Auto) 0.6, Absolute Neuts (auto) 4.5, Absolute Lymphs (auto) 1.27, Nucleated RBC % 0, Sodium 141, Potassium 3.7, Chloride 108 H, Carbon Dioxide 28.0, Anion Gap 5, BUN 22 H, Creatinine 0.60 L, Estim Creat Clear Calc 63.72, Est GFR (MDRD) Af Amer 169, Est GFR (MDRD) Non-Af 140, BUN/Creatinine Ratio 36.9 H, Glucose 183 H, Calcium 8.5, Total Bilirubin 1.40 H, Direct Bilirubin 0.96 H, AST 44 H, ALT 138 H, Alkaline Phosphatase 625 H, Total Protein 5.4 L, Albumin 2.6 L, Globulin 2.8 08/12/23 05:31: POC Glucose 174 H 08/12/23 11:13: POC Glucose 160 H D/C Instructions Discharge Diet: Low fat / Low cholesterol Call your doctor if you observe: Fever of 101 or Higher, Shortness of breath, Dizziness, Fainting spells, Swelling in the ankles, Chest pain and Increased palpitations (irregular heartbeat) Meaningful Use Info Meaningful Use Meaningful Use Diagnoses (Choose all that apply): None applicable Ischemic Stroke Statin Dosing Therapy Reference: STATIN DOSE THERAPY REFERENCE: * Patients > 75 years receive moderate or high dose statin therapy. * Patients 75 years or YOUNGER should receive HIGH intensity statin dose unless contraindicated. You will be required to document reason for non-treatment if statin daily dose does not meet guidelines. HIGH DOSE STATIN THERAPY DAILY Atorvastatin > than or = to 40 mg Rosuvastatin > than or = to 20 mg Amlodipine + Atorvastatin > than or = to 2.5/40 mg Ezetimibe + Simvastatin 10/80 mg Simvastatin 80mg Discharge Plan Admission Admit Date/Time: 08/09/23 14:29 Attending Provider: Sang Baker Primary Care Provider: Ponce,Phylicia Consulting Providers: Kathy Brasher; Roshan Cárdenas Instructions Patient Instructions: ENID RN Biopsy Liver Justin, ENID RN Procedural Sedation Discharge Orders/Prescriptions Prescriptions: Continued lisinopril 20 MG tablet 20 mg PO BID amlodipine 10 MG tablet 10 mg PO DAILY hydrochlorothiazide 25 MG tablet 25 mg PO DAILY selenium 200 MCG tablet 200 mcg PO BID Creon 24,000-76,000 -120,000 unit capsule,delayed release(DR/EC) 1 cap PO 3XD Rx Instructions: TAKES WITH MEALS OR SNACKS cholecalciferol (vitamin D3) 1 tab PO DAILY Patient Comments: PT ORDERS ONLINE, DOESNT KNOW THE STRENGTH zinc sulfate 50 mg zinc (220 mg) tablet 50 mg PO DAILY testosterone 50 mg/5 gram (1 %) gel 50 mg transdermal DAILY Referrals / Follow Up: Phylicia Serra DO [Primary Care Provider] - Within 1 Week Alex Vogt DO [Med Staff - Active Staff] - Within 1 Month Disposition Disposition (needs filled in before D/C Order can be placed): Home, Self Care Charges/Coding Visit Charges Inpatient E&M: 28769 Disch Hosp >30min
--- NOTE | 2023-08-12 15:01 | CHAPLAIN ---
Type of Pastoral Visit ___ Initial Visit _x__ Follow-up Visit ___ On-call Visit ___ General Patient Visit ___ Spiritual Assessment ___ Family Conference ___ Bereavement ___ Rapid Response ___ Code Blue ___ Other (describe below) Pastoral Care Referral From _x__ Patient _x__ Family ___ Nurse ___ Physician ___ Teletype Telegrapher ___ Chemist Enzymes ___ Other (describe below) Sacrament/Intervention _x__ Active listening ___ Anointing ___ Jain ___ Bereavement ___ Communion _x__ Dorie exploration ___ _x__ Life review _x__ Prayer ___ Reconciliation ___ Sacrament of Sick _x__ Supportive presence ___ Wedding ___ Other (describe below) Pastoral Comments patient and spouse are in the room with door closed but very welcoming; this couple have served in [employer] for many years and continue to do so; pt and spouse speak of their dorie and how this will be a 'spiritual omer' but with great hope in the Physician Healer; both are encouraged about process so far; both talk of many supporters of prayer and dorie; some family members will be coming in for giving presence and support too; both given time to talk, express their feelings and dorie; prayer is welcomed
--- NOTE | 2023-08-12 15:36 | CASEMGMT ---
Social Work SW met with pt and Tiffany and discussed advance directives. SW assisted pt and in completing Health Care POA. Pt naming his Tiffany as HCPOA. Pt choosing not to complete a living will. Original given to pt and copy placed in pt chart. TORSTEN Motta
== END 2023-08-12 15:54 | disposition home or self-care (01) | DRG 435 ==
LOC: ED 14:11 → MS3 14:39
PROVIDERS: Anesthesiology; Internal Medicine; Internal Medicine Gastroenterology; Nurse Practitioner; Admitting Provider Family Medicine; Emergency Provider Student in an Organized Health Care Education/Training Program; PCP Internal Medicine; Visit Provider Family Medicine
PROC: 0FC98ZZ Extirpation of Matter from Common Bile Duct, Via Natural or Artificial Opening Endoscopic (ICD-10-PCS; CPT 43260; principal; 2023-08-10 08:00)
DX: C25.0 Malignant neoplasm of head of pancreas (principal); E43 Unspecified severe protein-calorie malnutrition; K80.51 Calculus of bile duct without cholangitis or cholecystitis with obstruction; C78.7 Secondary malignant neoplasm of liver and intrahepatic bile duct; R62.7 Adult failure to thrive; E11.9 Type 2 diabetes mellitus without complications; I10 Essential (primary) hypertension; E87.6 Hypokalemia; Z68.22 Body mass index [BMI] 22.0-22.9, adult; Z79.899 Other long term (current) drug therapy; Z87.891 Personal history of nicotine dependence
CPT/HCPCS: 36415; 74183; 74330; 76000; 77012; 80048; 80053; 80076; 81002; 82105; 82962; 83036; 83690; 83735; 84100; 85025; 85610; 85730; 86301; 88108; 88304; 88305; 88307; 88313; 88341; 88342; 93005; 94668; 97161; 97165; 97802; 99156; 99157; 99283; A9575; J7030; J7050; A4216; J2405

== ENCOUNTER → 2023-08-27 | Outpatient (CLI) | payer MEDICARE, SELFPAY ==
--- NOTE | 2023-08-27 11:30 | PET_ITS ---
EXAMINATION: FDG PET/CT ? INDICATIONS: 78-year-old male with a history of suspected pancreatic carcinoma, presenting for initial staging examination. ? COMPARISON EXAMINATION: MRI of the abdomen report dated 08/07/2023. ? INDEX LESION SIZE SUV INTERPRETATION Pancreatic head 44.5 mm 12.0 Fulfills quantitative criteria for viable neoplasm ? Peripancreatic soft tissue nodule 10.5 mm, largest 3.4 max Fulfills quantitative criteria for viable neoplasm ? Left and right lobe hepatic parenchyma 58.7 mm, largest 27.4 , ratio >2.0 Fulfills quantitative criteria for viable neoplasm ? TECHNIQUE: Following the intravenous administration of 13.3 mCi of F-18 deoxyglucose via the right hand, multiplanar image acquisitions of the head, neck, chest, abdomen and pelvis to the level of the midthigh, bilateral lower extremities to the level of the forefoot obtained at one-hour post radiopharmaceutical administration contemporaneously interpreted with the current CT of the chest, abdomen and pelvis dated 08/27/2023 and prior MRI of the abdomen report dated 08/07/2023 via coregistration reveal: ? SERUM GLUCOSE LEVEL:? 92 mg/dL? HEIGHT:?? 74 inches WEIGHT:?? 167 pounds ? FINDINGS: ? HEAD/NECK:? There is no evidence of abnormal increased glucose metabolism in the pharyngeal mucosal space, parapharyngeal space, oropharynx, bilateral-lateral and anterior neck, hypopharynx and distribution of the larynx. ? The visualized portion of the cerebral cortical-subcortical structures demonstrate symmetric and preserved glucose metabolism. ? CHEST:? There is no quantitative scintigraphic evidence of abnormal increased glucose metabolism within the context of the bilateral hemithorax pulmonary parenchyma, right and left hemithorax at the pleural interface, mediastinal structures, and left-right thoracic perihilum. ? CT of the chest demonstrates the following anatomic characteristics: Atherosclerotic calcification is defined in the thoracic aorta without evidence of dilatation, aneurysm formation. Coronary artery calcification is observed. There are no parenchymal densities-nodules defined in the right and left hemithorax with quantitatively significant increased FDG uptake. ? ABDOMEN/PELVIS:? Facilitated uptake is noted in the region of the midline midabdominal retroperitoneum in the region of the pancreatic head. The calculated standard uptake value is 12.0. The maximal axial diameter of the metabolic, morphologic abnormality is 44.5 mm. Enhanced FDG concentration is noted in a single nodular focus, peripancreatic in location, in the left midabdominal retroperitoneum, celiac axis lymph node basin The calculated standard uptake value is 3.4. The maximal axial diameter of the metabolic, morphologic abnormality is 10.5 mm. There is increased labeled glucose uptake is noted in the left and right lobe hepatic (2.3) parenchyma generating a calculated standard uptake value of 27.4 with a lesion:liver background ratio >2.0. The largest corresponding metabolic abnormality is 15.7 mm. Of Normal physiologic distribution of the radiopharmaceutical is identified in the splenic parenchyma, both renal units, urinary bladder, and visualized intestinal tract. ? CT of the abdomen and pelvis is remarkable for the following: Pneumobilia is defined. Biliary stent placement is demonstrated. Atherosclerotic calcification is defined in the abdominal aorta without evidence of dilatation, aneurysm formation. Pelvic arterial calcification is observed. Dystrophic calcification is noted within the prostate gland. Calcified phlebolith formation is noted in the bilateral lower hemipelvis. ? SKELETAL:? There is no evidence of quantitatively significant enhanced glucose metabolism on meticulous inspection of the appendicular and axial skeletal structures. ? Degenerative changes defined in the thoracic and lumbar spine demonstrate no evidence of increased glucose metabolism. There are no sclerotic, mixed sclerotic-lytic, or primarily lytic changes defined in the axial skeletal structures with evidence of increased FDG uptake. ? PET/PET/CT Tumor WB Initial IMPRESSION: 1. ABNORMAL EXAMINATION INDICATIVE OF MALIGNANT-VIABLE NEOPLASM. 2. Increased glucose concentration noted in the pancreatic head fulfills quantitative criteria for viable neoplasm. 3. Enhanced tracer uptake noted in the abdominal retroperitoneum in the region of the celiac axis lymph node basin fulfills quantitative criteria for malignant transformation. 4. Disseminated left and right lobe hepatic parenchymal hypermetabolic foci fulfill quantitative criteria for viable hepatic metastatic disease. (Delbeadwoa et al, Archives of Surgery, 133:510 1998). Electronic Signature Gonsalo Phoenix D.O. Accurate Quantification of SUVs for this report are calculated using the exclusive [email or web address] Technology. ([place]. Patent No. [id number] [id number] [phone] patent [id number] [phone]). Standardization and correction of the FDG SUV metric via [employer] technology allow for vendor non-specific objective quantitative examination comparison and optimization of the sensitivity and specificity of the FDG PET-CT examination. . [email or web address]/[email or web address] Electronically Signed: Gonsalo Phoenix DO at 9:53 EDT ,
== END | disposition home or self-care (01) ==
LOC: ONC 10:11
PROVIDERS: PCP Internal Medicine; Referring Provider Internal Medicine; Visit Provider Internal Medicine
DX: C78.7 Secondary malignant neoplasm of liver and intrahepatic bile duct (principal); R16.0 Hepatomegaly, not elsewhere classified
CPT/HCPCS: 78816; A9552

== ENCOUNTER → 2023-09-19 | Outpatient (CLI) | payer MEDICARE, SELFPAY ==
[2023-09-19 12:30] LABS: Hematocrit 39.5 % (40-54); Hemoglobin 12.7 g/dL (13.0-16.5); Mean Corp Hgb Conc 32.2 g/dL (32-36); Mean Corpuscular Hgb 29.4 pg (27.0-32.0); Mean Corpuscular Volume 91.4 fL (80-94); Mean Platelet Vol. 11.6 fl (6.2-12.0); Platelet Count 271 K/mm3 (150-450); RBC Distribution Width CV 13.8 % (11.6-14.6); RBC Distribution Width SD 46.5 fl (35.1-43.9); Red Blood Count 4.32 M/mm3 (4.6-6.2); White Blood Count 4.8 K/mm3 (4.4-11.0)
[2023-09-19 12:39] LABS: Vitamin B12 > 2000 pg/mL (211-911); Vitamin D,25 Hydroxy 32.6 ng/mL
[2023-09-19 12:46] LABS: Hemoglobin A1c 6.5 % (3.8-5.6)
[2023-09-19 13:07] LABS: Ionized Calcium 4.98 mg/dL (4.36-5.20)
[2023-09-19 14:33] LABS: ALB/GLOB Ratio 0.8 RATIO (0.9-2.4); AST(SGOT) 20 U/L (15-37); Alanine Aminotransfer ALT/SGPT 26 U/L (16-61); Albumin, Serum 2.9 g/dL (3.2-5.0); Alkaline Phosphatase 315 U/L (45-117); Amylase 29 U/L (25-115); Anion Gap 7 (5-15); BUN 21 mg/dL (7-18); BUN/Creat Ratio 27.6 RATIO (10-20); Calcium,Total 9.2 mg/dL (8.5-10.1); Chloride 107 mmol/L (98-107); Cholesterol 179 mg/dL (200); Creatinine, Serum 0.76 mg/dL (0.70-1.30); EST Glomerular Filtration Rate 105 mL/min (>60); Est Glom Filt Rate - Afr Amer 127 mL/min (>60); Estradiol < 11.0 pg/mL; Ferritin 253 ng/mL (26-388); Follicle Stimulating Hormone 4.9 mIU/mL; Free T3 1.7 pg/mL (2.18-3.98); Globulin 3.8 g/dL (2.2-4.2); Glucose 121 mg/dL (74-106); High Density Lipoprotein 28 mg/dL; Iron 26 ug/dL (65-175); Iron Binding Capacity,Total 177 ug/dL (250-450); Lipase 39 U/L (13-75); Magnesium 2.4 mg/dL (1.6-2.6); PERCENT IRON SATURATION 14.7 % (15.0-55.0); PSA,Total- Diagnostic 0.79 ng/mL (0.0-4.0); Potassium 3.5 mmol/L (3.5-5.1); Protein, Total 6.7 g/dL (6.4-8.2); Sodium Level 141 mmol/L (136-145); T4 Free Direct 1.12 ng/dL (0.76-1.46); Thyroid Stim Hormone (TSH) 2.46 uIU/mL (0.358-3.74); Triglycerides 162 mg/dL; Uric Acid 3.9 mg/dL (3.5-7.2); Very Low Density Lipoprotein 32 mg/dL (5-40)
[2023-09-19 17:33] LABS: Ionized Calcium Order ORDER TUBE
[2023-09-20 14:10] LABS: HOMOCYSTEINE 7.1 umol/L (0.0-19.2); PROGESTERONE 0.2 ng/mL (0.0-0.5)
[2023-09-28 22:26] LABS: Miscellaneous Lab Procedure A
[2023-10-14 15:08] LABS: Carbohydrate AG 19-9 7759 U/mL (0-35); DHEA Sulfate 97.4 ug/dL (20.8-226.4); Insulin Level 3.2 uIU/mL (2.6-24.9); Insulin Like Growth Factor 33 ng/mL (45-207); Lipoprotein A 22.9 nmol/L (<75.0); Sex Hormone-binding Globulin 76.4 nmol/L (19.3-76.4); T3 Reverse 40.9 ng/dL (9.2-24.1); Testosterone Free 1.5 pg/mL (6.6-18.1); Thyroglobulin Antibody < 1.0 IU/mL (0.0-0.9); Thyroid Peroxidase AB < 9 IU/mL (0-34)
== END | disposition home or self-care (01) ==
PROVIDERS: PCP Internal Medicine
DX: I10 Essential (primary) hypertension (principal); E11.9 Type 2 diabetes mellitus without complications; E29.1 Testicular hypofunction; E55.9 Vitamin D deficiency, unspecified; R53.82 Chronic fatigue, unspecified
CPT/HCPCS: 36415; 80053; 80061; 81291; 82150; 82306; 82330; 82533; 82607; 82627; 82670; 82728; 82746; 83001; 83036; 83090; 83525; 83540; 83550; 83690; 83695; 83735; 84144; 84153; 84270; 84305; 84402; 84403; 84439; 84443; 84481; 84482; 84550; 85027; 86141; 86301; 86376; 86800; 82626

== ENCOUNTER → 2023-11-08 | Outpatient (CLI) | payer MEDICARE, SELFPAY ==
[2023-11-08 10:06] LABS: Hematocrit 39.3 % (40-54); Hemoglobin 12.6 g/dL (13.0-16.5); Mean Corp Hgb Conc 32.1 g/dL (32-36); Mean Corpuscular Hgb 28.9 pg (27.0-32.0); Mean Corpuscular Volume 90.1 fL (80-94); Mean Platelet Vol. 11.1 fl (6.2-12.0); Platelet Count 322 K/mm3 (150-450); RBC Distribution Width SD 49.7 fl (35.1-43.9); Red Blood Count 4.36 M/mm3 (4.6-6.2)
[2023-11-08 10:25] LABS: Hemoglobin A1c 6.1 % (3.8-5.6)
[2023-11-08 10:32] LABS: Vitamin D,25 Hydroxy 99.3 ng/mL
[2023-11-08 10:40] LABS: ALB/GLOB Ratio 0.6 RATIO (0.9-2.4); AST(SGOT) 25 U/L (15-37); Alanine Aminotransfer ALT/SGPT 23 U/L (16-61); Albumin, Serum 2.7 g/dL (3.2-5.0); Alkaline Phosphatase 395 U/L (45-117); Anion Gap 7 (5-15); BUN 15 mg/dL (7-18); BUN/Creat Ratio 22.3 RATIO (10-20); Chloride 104 mmol/L (98-107); Cholesterol 174 mg/dL (200); Creatinine, Serum 0.67 mg/dL (0.70-1.30); EST Glomerular Filtration Rate 121 mL/min (>60); Est Glom Filt Rate - Afr Amer 146 mL/min (>60); Estradiol 16.7 pg/mL; Free T3 2.4 pg/mL (2.18-3.98); Globulin 4.2 g/dL (2.2-4.2); Glucose 112 mg/dL (74-106); High Density Lipoprotein 36 mg/dL; Iron 36 ug/dL (65-175); Iron Binding Capacity,Total 173 ug/dL (250-450); PERCENT IRON SATURATION 20.8 % (15.0-55.0); PSA,Total - Annual Screen 0.65 ng/mL (0.00-4.00); Potassium 3.1 mmol/L (3.5-5.1); Protein, Total 6.9 g/dL (6.4-8.2); Sodium Level 141 mmol/L (136-145); T4 Free Direct 1.17 ng/dL (0.76-1.46); Triglycerides 154 mg/dL; Very Low Density Lipoprotein 31 mg/dL (5-40)
[2023-11-09 09:12] LABS: CRP, High Sensitivity 65.43 mg/L (0.00-3.00); PROGESTERONE 0.6 ng/mL (0.0-0.5)
[2023-11-13 19:07] LABS: Insulin Like Growth Factor 27 ng/mL (45-207); T3 Reverse 56.5 ng/dL (9.2-24.1); Testosterone, % Free 1.12 % (1.50-4.20); Testosterone, Free 2.24 ng/dL (5.00-21.00); Testosterone, Total 200 ng/dL (264-916)
== END | disposition home or self-care (01) ==
PROVIDERS: PCP Internal Medicine
DX: E55.9 Vitamin D deficiency, unspecified (principal); R53.83 Other fatigue; I10 Essential (primary) hypertension; E29.1 Testicular hypofunction; Z12.5 Encounter for screening for malignant neoplasm of prostate
CPT/HCPCS: 36415; 80053; 80061; 82306; 82533; 82627; 82670; 83036; 83540; 83550; 84144; 84153; 84270; 84305; 84402; 84403; 84439; 84443; 84481; 84482; 85027; 86141; 82626; G0103

== ENCOUNTER 2023-12-07 10:40 | Emergency (ER) | payer MEDICARE, SELFPAY ==
[2023-12-07 10:40] VITALS: BP 157/80; PULSE 89; RESP 18; TEMP 35.8; O2SAT 100; BMI 22.9
--- NOTE | 2023-12-07 11:18 | EX.ED.DYSGE1 ---
HPI History of Present Illness Chief Complaint: Edema Informant: patient and spouse/S.O. Narrative Narrative: 78-year-old presents to the ER for edema in his legs and now his scrotum. The edema is been there for maybe 3 weeks, but worse in the past 3 days involving his scrotum which was not the case before. It is symmetric in his lower extremities. He denies any dyspnea, orthopnea, chest discomfort. He is generally weak. He has been diagnosed with metastatic pancreatic cancer and given a very poor prognosis. He is following with Dr. Worrell with oncology, he has chosen not to do chemotherapy, and instead is seeing a different physician who is possibly a naturalopath from what they are discussing with me, and he is on high-dose vitamin C. His goal is to make the most of the time that he has left which may be several months, and avoid chemotherapy so that he is not sick and miserable. So far for the edema he has been using compression socks, no diuretics. [facility] Medical History Pancreatic cancer Diabetes mellitus, type 2 Former tobacco use Osteoarthritis HTN (hypertension) Home Medications ?Medication ?Instructions ?Recorded ?Last Taken ?Type amlodipine 10 mg tablet 10 mg PO DAILY 02/03/15 08/01/23 History hydrochlorothiazide 25 mg tablet 25 mg PO DAILY 02/03/15 08/01/23 History lisinopril 20 mg tablet 20 mg PO BID 02/03/15 08/01/23 History selenium 200 mcg tablet 200 mcg PO BID 08/07/19 08/05/23 History cholecalciferol (vitamin D3) 1 tab PO DAILY 08/09/23 08/08/23 History behufy-jwzpomff-jpyapty 1 cap PO 3XD 08/09/23 08/09/23 History 24,000-76,000-120,000 unit capsule,delayed rel (Creon) testosterone 50 mg/5 gram (1 %) 50 mg transdermal DAILY 08/09/23 08/09/23 History transdermal gel zinc sulfate 50 mg zinc (220 mg) 50 mg PO DAILY 08/09/23 08/08/23 History tablet furosemide 20 mg tablet 20 mg PO DAILY #7 tabs 12/07/23 Unknown Rx potassium chloride 20 mEq 20 meq PO BID #20 tabs 09/14/24 Unknown Rx tablet,extended release Allergy/AdvReac Type Severity Reaction Status Date / Time No Known Allergies Allergy Verified 12/07/23 10:40 Family History Father Cancer Brother Diabetes Mother Hypertension HLD (hyperlipidemia) Surgical History S/P carpal tunnel release H/O shoulder surgery H/O cervical spine surgery Social History household members: spouse and family housing: house current occupational status: retired Smoking Status: Former smoker how long ago did patient quit smoking: Quit 1971, smoked near 44 years. alcohol intake: never substance use type: does not use ROS ROS ED Constitutional Constitutional ED: Reports fatigue and weakness; Denies chills or fever(s) Eyes Eyes: Denies change in vision or diplopia ENT ENT ED: Denies rhinorrhea or sore throat Cardiovascular Cardiovascular: Reports pedal edema; Denies chest pain, orthopnea or palpitations Respiratory/Chest Respiratory/Chest: Denies cough, dyspnea or orthopnea Gastrointestinal Gastrointestinal: Reports diarrhea and other Details: abd pain off and on, not right now ; Denies nausea or vomiting Genitourinary Genitourinary ED: Reports scrotal swelling; Denies difficulty urinating, dysuria, hematuria or scrotal pain Musculoskeletal Musculoskeletal: Denies back pain, extremity pain or neck pain Integumentary Denies abscess or rash Neurologic Neurologic: Denies headache(s), paresthesias or weakness Psychiatric Psychiatric: Denies anxiety or suicidal thoughts EXAM Physical Exam Const Vital Signs: 12/07/23 10:40 12/07/23 10:49 12/07/23 12:40 Temperature 96.5 F L Temperature Source Temporal Pulse Rate 89 73 Respiratory Rate 18 16 Respiratory Effort Normal Respiratory Pattern Normal Blood Pressure 157/80 H 147/94 H Blood Pressure Mean 105 111 Pulse Ox 100 98 Oxygen Delivery Method Room Air Room Air Positive well nourished and well developed General Appearance ED: well developed and NAD HEENT Reports moist mucous membranes normocephalic and atraumatic Eyes PERRL and EOMs intact bilaterally Neck full ROM and supple Resp normal respiratory effort and clear to auscultation bilaterally Cardio regular rate, regular rhythm and no murmurs GI non-tender and non-distended Auscultation: normoactive bowel sounds Palpation: soft Narrative: mild scrotal edema. no tenderness, no erythema. Back/Spine no CVA tenderness General Back: other FROM Extremity normal to inspection Extremity Narrative: no calf tend bilat, no cords. intact bilat DP pulses, difficult to feel due to edema in feet. General Extremety ED: Yes edema; Negative for pulses abnormal or tenderness General Extremity: edema bilateral lower extremity Details: mild (to prox thighs bilat, symmetric); Negative for pulses abnormal Neuro oriented x3, CN's II-XII intact bilaterally and no sensory deficits noted Sensorium / Orientation: awake and alert Motor Exam: strength 5/5 throughout Skin no rashes or lesions noted and no wounds MDM MDM MDM Narrative Medical decision making narrative: I obtained some labs, they show that the patient does have elevated liver enzymes and total bilirubin likely related to his metastatic disease to the liver, in addition to hypoalbuminemia that is consistently been lower. His albumin is 2.2. I suspect that his loss of oncotic pressure is probably the reason for the edema. He is not having severe pain or signs of significant lower extremity venous congestion to suggest an IVC or portal vein obstruction or different urgent/emergent vascular event. In discussing at length with the patient and his significant other at the bedside, they are in agreement that they are trying to avoid aggressive therapies and procedures here. For this reason at this time I think it would be reasonable to put him on some diuretic, she is going to try to increase his dietary protein intake which is reasonable, and have him follow-up with his doctor as an outpatient. Although we considered advanced imaging of the abdomen/pelvis to look for portal venous obstruction or IVC, I think it would be reasonable to try this treatment first and they are in agreement. His potassium is pretty low, so I am going to take an hour and get him an IV potassium infusion in addition to giving him some oral supplementation prior to discharge home which may make him feel less weak. At home he is going to get once daily Lasix and oral potassium supplementation and he will follow-up after the weekend with his doctor. They are comfortable with that overall plan and agree with the management. Lab Data Attestation: I reviewed the patient's lab results. Labs: Laboratory Results - last 24 hr 12/07/23 12/07/23 11:05 11:45 WBC 10.1 RBC 4.18 L Hgb 12.1 L Hct 38.0 L MCV 90.9 MCH 28.9 MCHC 31.8 L RDW Std Deviation 57.9 H RDW Coeff of Maru 17.5 H Plt Count 287 MPV 10.5 Immature Gran % (Auto) 0.600 Neut % (Auto) 83.3 H Lymph % (Auto) 7.1 L [place] % (Auto) 5.6 Eos % (Auto) 2.8 Baso % (Auto) 0.6 Absolute Neuts (auto) 8.4 H Absolute Lymphs (auto) 0.72 L Nucleated RBC % 0 Sodium 142 Potassium 2.8 L Chloride 103 Carbon Dioxide 26.0 Anion Gap 13 BUN 16 Creatinine 0.75 Estim Creat Clear Calc 66.20 Est GFR (MDRD) Af Amer 130 Est GFR (MDRD) Non-Af 107 BUN/Creatinine Ratio 21.4 H Glucose 160 H Calcium 8.9 Total Bilirubin 1.30 H AST 34 ALT 24 Alkaline Phosphatase 350 H Total Protein 5.9 L Albumin 2.2 L Globulin 3.7 Albumin/Globulin Ratio 0.6 L Urine Color Straw Urine Clarity Sl. Cloudy Urine pH 6.0 Ur Specific [place] 1.025 Urine Protein 100 H Urine Glucose (UA) Normal Urine Ketones 5 H Urine Occult Blood Negative Urine Nitrite Negative Urine Bilirubin Negative Urine Urobilinogen 4 H Ur Leukocyte Esterase 25 H Urine RBC 0-5 SEEN Urine WBC 0-5 SEEN Ur Squamous Epith Cells 0 SEEN Urine Bacteria 1+ Hyaline Casts 5-10 SEEN Fine Granular Casts 0-5 SEEN Urine Mucus 0 SEEN Discharge Plan Triage Chief Complaint: Edema ED Provider: Phil Arredondo Dx/Rx/DC Orders Clinical Impression: Edema due to hypoalbuminemia, Pancreatic cancer metastasized to liver, Acute hypokalemia Instructions: ED Hypokalemia, ED Lymphedema Prescriptions: New potassium chloride 20 mEq tablet extended release 20 meq PO BID Qty: 20 0RF furosemide 20 mg tablet 20 mg PO DAILY Qty: 7 0RF No Action lisinopril 20 MG tablet 20 mg PO BID amlodipine 10 MG tablet 10 mg PO DAILY hydrochlorothiazide 25 MG tablet 25 mg PO DAILY selenium 200 MCG tablet 200 mcg PO BID Creon 24,000-76,000 -120,000 unit capsule,delayed release(DR/EC) 1 cap PO 3XD Rx Instructions: TAKES WITH MEALS OR SNACKS cholecalciferol (vitamin D3) 1 tab PO DAILY Patient Comments: PT ORDERS ONLINE, DOESNT KNOW THE STRENGTH zinc sulfate 50 mg zinc (220 mg) tablet 50 mg PO DAILY testosterone 50 mg/5 gram (1 %) gel 50 mg transdermal DAILY Primary Care Provider: Phylicia Serra Referrals: Phylicia Serra DO [Primary Care Provider] - 3-5 Days Print Language: Bulgarian Disposition Disposition: Home, Self Care
[2023-12-07 11:27] LABS: Absolute Lymphocyte Count 0.72 X10^3/uL (0.83-4.51); Absolute Neutrophil Count 8.4 X10^3/uL (2.0-7.7); Basophil# 0.06 X10^3/uL; Basophil% 0.6 % (0-1); Eosinophil# 0.28 X10^3/uL; Eosinophils% 2.8 % (0-5); Hemoglobin 12.1 g/dL (13.0-16.5); Lymphocyte # 0.72 X10^3/ul (0.83-4.51); Lymphocyte % 7.1 % (19-41); Mean Corp Hgb Conc 31.8 g/dL (32-36); Mean Corpuscular Hgb 28.9 pg (27.0-32.0); Mean Corpuscular Volume 90.9 fL (80-94); Mean Platelet Vol. 10.5 fl (6.2-12.0); Monocyte# 0.56 X10^3/uL; Monocyte% 5.6 % (0-10); NRBC Flagged by Analyzer 0 % (0-5); Neutrophil % 83.3 % (47-70); Platelet Count 287 K/mm3 (150-450); RBC Distribution Width CV 17.5 % (11.6-14.6); RBC Distribution Width SD 57.9 fl (35.1-43.9); Red Blood Count 4.18 M/mm3 (4.6-6.2); White Blood Count 10.1 K/mm3 (4.4-11.0)
[2023-12-07 11:46] LABS: ALB/GLOB Ratio 0.6 RATIO (0.9-2.4); AST(SGOT) 34 U/L (15-37); Alanine Aminotransfer ALT/SGPT 24 U/L (16-61); Albumin, Serum 2.2 g/dL (3.2-5.0); Alkaline Phosphatase 350 U/L (45-117); Anion Gap 13 (5-15); BUN 16 mg/dL (7-18); BUN/Creat Ratio 21.4 RATIO (10-20); Calcium,Total 8.9 mg/dL (8.5-10.1); Chloride 103 mmol/L (98-107); Creatinine, Serum 0.75 mg/dL (0.70-1.30); EST Glomerular Filtration Rate 107 mL/min (>60); Est Glom Filt Rate - Afr Amer 130 mL/min (>60); Globulin 3.7 g/dL (2.2-4.2); Glucose 160 mg/dL (74-106); Potassium 2.8 mmol/L (3.5-5.1); Protein, Total 5.9 g/dL (6.4-8.2); Sodium Level 142 mmol/L (136-145)
[2023-12-07 11:49] LABS: Mucous, Urine 0 SEEN /hpf (<or=2+); Squamous Epithelial Cells - UA 0 SEEN /hpf (0-5)
[2023-12-07 11:52] LABS: Color, Urine Straw (Yellow); Glucose, Dipstick Normal (Normal); Ketone-Dipstick 5 mg/dl (Negative); Leukocyte Esterase-Dipstick 25 /ul (Negative); Nitrite-Dipstick Negative (Negative); Occult Blood-Urine Negative /ul (Negative); Protein-Dipstick 100 mg/dl (Negative); Specific Gravity, Urine 1.025 (1.002-1.030); Urine Bilirubin Dipstick Negative (Negative); Urine Clarity Sl. Cloudy (Clear); Urine Urobilinogen 4 mg/dl (Normal)
[2023-12-07 12:13] LABS: Hyaline Cast 5-10 SEEN /lpf (0-5)
[2023-12-07 12:21] LABS: Bacteria 1+ /hpf (None Seen)
[2023-12-07 12:23] LABS: Fine Granular Cast- Urine 0-5 SEEN /lpf (0-5); Red Blood Cells-Urine 0-5 SEEN /hpf (0-5); White Blood Cells 0-5 SEEN /hpf (0-5)
[2023-12-07 12:40] VITALS: BP 147/94; PULSE 73; RESP 16; O2SAT 98
[2023-12-07] MEDS: Potassium Chloride Oral Tablet 20 MEQ 40 MEQ PO (13:41)
[2023-12-07] MEDS: Furosemide 20 MG/2 ML VIAL IV (13:43)
[2023-12-07 14:00] VITALS: BP 169/90; PULSE 86; RESP 17; O2SAT 98
[2023-12-07] MEDS: Potassium Chloride 10mEq/100mL 10 MEQ/100 ML IV.SOLN. 100 MEQ IV BOLUS (14:26)
[2023-12-07 16:00] VITALS: BP 153/83; PULSE 78; RESP 16; O2SAT 98
[2023-12-07 16:15] VITALS: BP 153/78; PULSE 73; RESP 16; TEMP 36.1; O2SAT 98
--- NOTE | 2023-12-13 08:11 | CM.ED ---
Social Work - Advance Directives Received a phone call from patient's son Ghassan Renee inquiring about how to obtain a living will for this patient. Noted that patient's son Ghassan is listed as one of the agents in the [facility] scanned into [facility] system. At the time of completion in July, patient chose not to complete the living will. The son reports patient's health is declining and patient is now interesting in getting the living will completed. Confirmed email, and emailed a blank living will to the son. Provided this instructional writer's contact should patient, , or son have further questions or if they would want to schedule an outpatient appointment for completion of AD. -GUSTAVO Tmimons
== END 2023-12-07 16:24 | disposition home or self-care (01) ==
PROVIDERS: Emergency Provider Emergency Medicine; PCP Internal Medicine; Visit Provider Emergency Medicine
DX: R60.9 Edema, unspecified (principal); C78.7 Secondary malignant neoplasm of liver and intrahepatic bile duct; C25.9 Malignant neoplasm of pancreas, unspecified; E11.9 Type 2 diabetes mellitus without complications; E87.6 Hypokalemia; I10 Essential (primary) hypertension; E88.09 Other disorders of plasma-protein metabolism, not elsewhere classified; Z87.891 Personal history of nicotine dependence; Z79.899 Other long term (current) drug therapy
CPT/HCPCS: 80053; 81001; 85025; 96361; 96374; 99284; A4216; J1940

== ENCOUNTER 2023-12-26 15:05 | Inpatient (IN) | payer MEDICARE, SELFPAY ==
[2023-12-26 15:05] VITALS: BP 125/73; PULSE 95; RESP 16; TEMP 36.6; O2SAT 96
--- NOTE | 2023-12-26 15:56 | CHAPLAIN ---
Type of Pastoral Visit ___ Initial Visit ___ Follow-up Visit ___ On-call Visit ___ General Patient Visit ___ Spiritual Assessment ___ Family Conference ___ Bereavement ___ Rapid Response ___ Code Blue ___ Other (describe below) Pastoral Care Referral From ___ Patient _x__ Family ___ Nurse ___ Physician ___ Press Room Supervisor ___ Assistant Broker ___ Other (describe below) Sacrament/Intervention ___ Active listening ___ Anointing ___ Adventist ___ Bereavement ___ Communion _x__ Dorie exploration ___ ___ Life review _x__ Prayer ___ Reconciliation ___ Sacrament of Sick _x__ Supportive presence ___ Wedding ___ Other (describe below) Pastoral Comments family members called this silk spreader to ask for presence and prayer to be given with this patient who is in the waiting room of the ED; pt and spouse are met and are given presence, time to explain their situation and decisions about further treatments, and for prayer; sat with patient and spouse for a time while they waited for a room to open up for the evaluation and process; patient expresses gratitude for the ministry of presence, just being here for us
--- NOTE | 2023-12-26 16:11 | EKG12_ITS ---
Test Reason : GENERAL Blood Pressure : / mmHG Vent. Rate : 086 BPM Atrial Rate : 086 BPM P-R Int : 214 ms QRS Dur : 132 ms QT Int : 370 ms P-R-T Axes : 033 032 035 degrees QTc Int : 442 ms Sinus rhythm with 1st degree A-V block with Premature atrial complexes with Aberrant conduction Right bundle branch block Abnormal ECG Confirmed by KATERINA MOORE, EMANUEL ([id number]), editorial clerk NEGIN LEE ([id number]) on 12/27/2023 2:09:44 PM Referred By: AR/TB Confirmed By:EMANUEL BORGES MD
--- NOTE | 2023-12-26 16:14 | EX.ED.DYSGE1 ---
HPI <AMANDO Recinos - Last Filed: 12/26/23 20:43> History of Present Illness Chief Complaint: Edema Narrative Narrative: Patient is a 78-year-old male with history of pancreatic cancer with metastatic disease to the liver, lungs, abdominal cavity who is currently not going through with any chemotherapy at this time. Patient is here today because he has swelling to his legs abdomen arms and chest. He is having difficulty getting around. He spoke with his PCP who referred him to the emergency department. Patient does see Dr. Whyte. Patient does have decreased appetite, and per his , he is having difficulty at home because there is so much extra water on him. [facility] <AMANDO Recinos - Last Filed: 12/26/23 20:43> [facility] Medical History Metastasis from pancreatic cancer Chronic anemia CKD (chronic kidney disease), stage II Severe protein-calorie malnutrition Pancreatic cancer Diabetes mellitus, type 2 Former tobacco use Osteoarthritis HTN (hypertension) Home Medications ?Medication ?Instructions ?Recorded ?Last Taken ?Type cholecalciferol (vitamin D3) 1 tab PO DAILY 08/09/23 08/08/23 History testosterone 50 mg/5 gram (1 %) 50 mg transdermal DAILY 08/09/23 08/09/23 History transdermal gel potassium chloride 20 mEq 20 meq PO BID #20 tabs 12/07/23 Unknown Rx tablet,extended release bumetanide 0.5 mg tablet 0.5 mg PO DAILY 12/26/23 Unknown History thyroid (pork) 60 mg tablet ([employer] 60 mg PO DAILY 12/26/23 Unknown History Thyroid) Allergy/AdvReac Type Severity Reaction Status Date / Time No Known Allergies Allergy Verified 12/26/23 15:07 Family History Father Cancer Brother Diabetes Mother Hypertension HLD (hyperlipidemia) Surgical History S/P ERCP S/P carpal tunnel release H/O shoulder surgery H/O cervical spine surgery Social History household members: spouse and family housing: house current occupational status: retired Smoking Status: Former smoker how long ago did patient quit smoking: Quit 1971, smoked near 44 years. alcohol intake: never substance use type: does not use ROS <AMANDO Recinos - Last Filed: 12/26/23 20:43> ROS ED ROS Narrative Constitutional: Negative for fever, chills, weight loss. Positive for weakness Eyes: Negative for vision loss, vision change, double vision ENT: Negative for any sore throat, ear pain, congestion Cardiovascular: Negative for any chest pain, tightness, palpitations Respiratory: Negative for any cough, sputum production, hemoptysis, dyspnea, dyspnea on exertion, orthopnea Gastrointestinal: Negative for any abdominal pain, nausea, vomiting, diarrhea, constipation, blood in stool, blood in vomit : Negative for any urinary frequency, dysuria, retention, blood in urine Muscle skeletal: Negative for any neck pain, back pain Neurological: Negative for any headache, syncope, dizziness Skin: Negative for any rashes, itching, abrasions, lacerations. Positive for swelling to both legs, arms ,abdomen Psychiatric: Negative for any depression, anxiety, stress, suicidal ideation, homicidal ideation Hematologic: Negative for any excessive bruising, easy bleeding EXAM <AMANDO Recinos - Last Filed: 12/26/23 20:43> Physical Exam Narrative Exam Narrative: Vital signs reviewed. Patient does appear cachectic. Vital signs are stable. HEET: Head normocephalic atraumatic, TMs clear bilaterally. Posterior pharynx is clear, moist mucous membranes. Nares clear bilaterally. Neck: Supple with no lymphadenopathy or tenderness. No signs of meningismus. Cardiac: Regular rate and rhythm no murmurs gallops or rubs, equal peripheral pulses bilaterally. Respiratory: Crackles to bilateral lower lobes. No chest tenderness. Abdomen: Soft, nontender, nondistended. No abdominal bruit or pulsatile masses. No hepatosplenomegaly Extremities: Positive for +3 pitting edema, +3 pitting edema to bilateral arms. Patient is in anasarca Neuro: Cranial nerves II through XII intact, no focal neurological deficits. Skin: Clean dry and intact with no rash, purpura, petechiae, vesicles or pustules. Backs/flank: No CVA tenderness, no midline spinal tenderness, no deformity. Psych: Normal mood and affect. No SI, HI or acute psychosis. Const Vital Signs: 12/26/23 15:05 12/26/23 17:05 12/26/23 17:21 Temperature 98 F Temperature Source Oral Pulse Rate 95 59 L Respiratory Rate 16 17 Respiratory Effort Normal Respiratory Pattern Normal Blood Pressure 125/73 H 112/45 L Blood Pressure Mean 90 67 Pulse Ox 96 98 Oxygen Delivery Method Room Air 12/26/23 19:00 12/26/23 19:53 Temperature 98.1 F Temperature Source Pulse Rate 88 91 Respiratory Rate 26 H 16 Respiratory Effort Respiratory Pattern Blood Pressure 122/78 H 144/81 H Blood Pressure Mean 92 102 Pulse Ox 96 97 Oxygen Delivery Method Room Air Positive cachectic General Appearance ED: cachectic Nutritional Appearance: cachectic <Piero Allen MD - Last Filed: 12/26/23 22:22> Physical Exam Const Vital Signs: 12/26/23 15:05 12/26/23 17:05 12/26/23 17:21 Temperature 98 F Temperature Source Oral Pulse Rate 95 59 L Respiratory Rate 16 17 Respiratory Effort Normal Respiratory Pattern Normal Blood Pressure 125/73 H 112/45 L Blood Pressure Mean 90 67 Pulse Ox 96 98 Oxygen Delivery Method Room Air 12/26/23 19:00 12/26/23 19:53 Temperature 98.1 F Temperature Source Pulse Rate 88 91 Respiratory Rate 26 H 16 Respiratory Effort Respiratory Pattern Blood Pressure 122/78 H 144/81 H Blood Pressure Mean 92 102 Pulse Ox 96 97 Oxygen Delivery Method Room Air MDM <AMANDO Recinos - Last Filed: 12/26/23 20:43> MDM Lab Data Labs: Laboratory Results - last 24 hr 12/26/23 12/26/23 17:05 20:20 WBC 12.4 H RBC 4.09 L Hgb 12.1 L Hct 39.1 L MCV 95.6 H MCH 29.6 MCHC 30.9 L RDW Std Deviation 74.4 H RDW Coeff of Maru 21.2 H Plt Count 151 MPV 10.6 Immature Gran % (Auto) 0.700 Neut % (Auto) 89.7 H Lymph % (Auto) 6.1 L Craven % (Auto) 3.0 Eos % (Auto) 0.3 Baso % (Auto) 0.2 Absolute Neuts (auto) 11.2 H Absolute Lymphs (auto) 0.76 L Nucleated RBC % 0 Differential Comment SCANNED Anisocytosis 1+ Sodium 140 Potassium 3.6 Chloride 105 Carbon Dioxide 23.0 Anion Gap 12 BUN 34 H Creatinine 0.91 Est GFR (MDRD) Af Amer 103 Est GFR (MDRD) Non-Af 85 BUN/Creatinine Ratio 37.3 H Glucose 91 Lactic Acid 7.9 H* Calcium 8.7 Total Bilirubin 1.80 H Direct Bilirubin 1.59 H AST 48 H ALT 30 Alkaline Phosphatase 355 H B-Natriuretic Peptide 640.2 H Total Protein 5.1 L Albumin 1.8 L Globulin 3.3 Lipase 27 Urine Color Yellow Urine Clarity Clear Urine pH 6.0 Ur Specific Latham 1.015 Urine Protein 30 H Urine Glucose (UA) Normal Urine Ketones Negative Urine Occult Blood Negative Urine Nitrite Negative Urine Bilirubin Negative Urine Urobilinogen 1 H Ur Leukocyte Esterase Negative Urine RBC 0 SEEN Urine WBC 0-5 SEEN Ur Squamous Epith Cells 0 SEEN Urine Bacteria 1+ Urine Mucus 0 SEEN Radiography Diagnostic Testing: Clinical Impression(s) from Imaging Studies Chest X-Ray 12/26/23 16:30 IMPRESSION: Diminished inspiratory effort with bibasilar atelectasis or infiltrates more severe in left lower lobe Electronically Signed: Jamie Watkins MD at 16:50 EDT Reading Location ID and State: [facility]– [place][note 2]6 / [place] Tel [phone], Service support , Abdomen/Pelvis CT 12/26/23 17:55 IMPRESSION: Large mass in the head of the pancreas and uncinate process consistent with known pancreatic neoplasm extensive hepatic metastases and pneumobilia status post stent placement Diffuse mesenteric edema and massive ascites within the abdomen and pelvis with diffuse subcutaneous edema in the flanks consistent with nonspecific anasarca. Concentric thickening of the newell of the ascending, transverse and descending colon possibly due to nonspecific inflammatory bowel disease. No evidence for small bowel obstruction Other findings as above Electronically Signed: Jamie Watkins MD at 19:38 EDT , EKG Sinus rhythm with first-degree AV block: Attestation: I personally reviewed and interpreted this EKG as follows: Treatment and Re-Evaluation :: Differential diagnosis includes however is not limited to: Kidney failure, anasarca, CHF, IVC, portal vein congestion, sequelae of pancreatic cancer Patient appears cachectic, vital signs are stable, patient does appear nontoxic. Patient presents to the emergency department for anasarca. This has been ongoing for the last 3 weeks, patient was seen here previously 2 weeks ago, patient was placed on Lasix, and to follow-up outpatient. At this time, patient is not responding well, patient is continue to have worsening swelling, having difficulty with day-to-day activities, and is here for evaluation. Patient will receive multiple laboratory values, chest x-ray. All radiologic examinations were read, reviewed by the emergency department attending. From these reads, a plan of care will be put in place. Patient's CBC shows a slight leukocytosis with a white blood count 12.4, hemoglobin stable 12.1. Patient's chemistries show a BUN of 34, patient's glucose 91, lactic acid was 7.9, this is grossly elevated. Patient's total bilirubin is 1.8 with a direct bili 1.59. Patient's alkaline phosphatase is 354 with a BNP of 640.2, total protein is 5.1 which is low with an albumin of 1.8. Lipase is negative. Patient CT scan of the abdomen pelvis shows a large mass in the head of the pancreas and uncinated process consistent with known pancreatic neoplasm extensive hepatic metastasis and pneumobilia diffuse mesenteric edema and massive ascites within the abdominal and pelvis with diffuse subcutaneous edema in the flanks consistent with nonspecific anasarca. Concentric thickening of the newell of the ascending, transverse, and descending colon possibly due to nonspecific inflammatory bowel disease. Patient at this time will be admitted to the hospital. I will speak to the hospitalist. Patient again does not want hospice, patient does not want any chemotherapy. I will reach out to the hospitalist, patient stable for admission. <Piero Allen MD - Last Filed: 12/26/23 22:22> BO SORIANO Narrative Medical decision making narrative: Dr. Allen: I have personally performed a face to face assessment of the patient and have reviewed the NATE Note. I performed a substantive portion of the visit including all aspects of the following. My eldridge findings include: History is 78-year-old male past medical history of pancreatic carcinoma, not on chemotherapy, presents with increased swelling. He has been on Lasix for swelling of his legs but now has swelling of his abdomen as well up to the level of his chest. Exam is afebrile. Vital signs noted. Regular rate and rhythm. Lungs clear to auscultation bilaterally anteriorly. Positive anasarca and ascites. Medical Decision Making: Check labs. Check CT abdomen and pelvis. Elevated lactate. I do not feel this is sepsis. Discussed with hospitalist for admission. 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 Other additions or changes: [None] History & Record Review Discussion w/independent historian: Patient and Family Lab Data Attestation: I reviewed the patient's lab results. Labs: Laboratory Results - last 24 hr 12/26/23 12/26/23 17:05 20:20 WBC 12.4 H RBC 4.09 L Hgb 12.1 L Hct 39.1 L MCV 95.6 H MCH 29.6 MCHC 30.9 L RDW Std Deviation 74.4 H RDW Coeff of Maru 21.2 H Plt Count 151 MPV 10.6 Immature Gran % (Auto) 0.700 Neut % (Auto) 89.7 H Lymph % (Auto) 6.1 L Craven % (Auto) 3.0 Eos % (Auto) 0.3 Baso % (Auto) 0.2 Absolute Neuts (auto) 11.2 H Absolute Lymphs (auto) 0.76 L Nucleated RBC % 0 Differential Comment SCANNED Anisocytosis 1+ Sodium 140 Potassium 3.6 Chloride 105 Carbon Dioxide 23.0 Anion Gap 12 BUN 34 H Creatinine 0.91 Est GFR (MDRD) Af Amer 103 Est GFR (MDRD) Non-Af 85 BUN/Creatinine Ratio 37.3 H Glucose 91 Lactic Acid 7.9 H* Calcium 8.7 Total Bilirubin 1.80 H Direct Bilirubin 1.59 H AST 48 H ALT 30 Alkaline Phosphatase 355 H B-Natriuretic Peptide 640.2 H Total Protein 5.1 L Albumin 1.8 L Globulin 3.3 Lipase 27 Urine Color Yellow Urine Clarity Clear Urine pH 6.0 Ur Specific Latham 1.015 Urine Protein 30 H Urine Glucose (UA) Normal Urine Ketones Negative Urine Occult Blood Negative Urine Nitrite Negative Urine Bilirubin Negative Urine Urobilinogen 1 H Ur Leukocyte Esterase Negative Urine RBC 0 SEEN Urine WBC 0-5 SEEN Ur Squamous Epith Cells 0 SEEN Urine Bacteria 1+ Urine Mucus 0 SEEN Radiography Diagnostic Testing: Clinical Impression(s) from Imaging Studies Chest X-Ray 12/26/23 16:30 IMPRESSION: Diminished inspiratory effort with bibasilar atelectasis or infiltrates more severe in left lower lobe Electronically Signed: Jamie Watkins MD at 16:50 EDT , Abdomen/Pelvis CT 12/26/23 17:55 IMPRESSION: Large mass in the head of the pancreas and uncinate process consistent with known pancreatic neoplasm extensive hepatic metastases and pneumobilia status post stent placement Diffuse mesenteric edema and massive ascites within the abdomen and pelvis with diffuse subcutaneous edema in the flanks consistent with nonspecific anasarca. Concentric thickening of the newell of the ascending, transverse and descending colon possibly due to nonspecific inflammatory bowel disease. No evidence for small bowel obstruction Other findings as above Electronically Signed: Jamie Watkins MD at 19:38 EDT , Discharge Plan Dx/Rx/DC Orders Clinical Impression: Anasarca, Liver masses, Mass of pancreas, Transaminitis, Abdominal ascites Disposition Disposition: Acute Care Hospital [facility] Discharge Date/Time: 12/26/23 22:07
--- NOTE | 2023-12-26 16:30 | RAD_ITS ---
STUDY: X-RAY CHEST REASON FOR EXAM: Male, 78 years old. cough TECHNIQUE: AP portable COMPARISON: January 28, 2020 FINDINGS: There is less than optimal inspiratory effort with bibasilar atelectasis or infiltrates slightly worse on the left. There is no demonstrated pleural abnormality. Normal size heart. Normal mediastinum and chuckie. Normal visualized pulmonary arteries. Normal visualized aortic arch and descending thoracic aorta. Dorsal spine and shoulders demonstrate degenerative change. Normal visualized ribs, and clavicles.. There is no demonstrated abnormality of the visualized soft tissue structures of the upper abdomen. RAD/Chest 1 View (Portable) IMPRESSION: Diminished inspiratory effort with bibasilar atelectasis or infiltrates more severe in left lower lobe Electronically Signed: Jamie Watkins MD at 16:50 EDT ,
[2023-12-26 17:05] VITALS: BP 112/45; PULSE 59; RESP 17; O2SAT 98
[2023-12-26 17:20] LABS: Absolute Lymphocyte Count 0.76 X10^3/uL (0.83-4.51); Absolute Neutrophil Count 11.2 X10^3/uL (2.0-7.7); Basophil# 0.02 X10^3/uL; Basophil% 0.2 % (0-1); Eosinophil# 0.04 X10^3/uL; Eosinophils% 0.3 % (0-5); Hematocrit 39.1 % (40-54); Hemoglobin 12.1 g/dL (13.0-16.5); Lymphocyte # 0.76 X10^3/ul (0.83-4.51); Lymphocyte % 6.1 % (19-41); Mean Corp Hgb Conc 30.9 g/dL (32-36); Mean Corpuscular Hgb 29.6 pg (27.0-32.0); Mean Corpuscular Volume 95.6 fL (80-94); Mean Platelet Vol. 10.6 fl (6.2-12.0); Monocyte# 0.37 X10^3/uL; NRBC Flagged by Analyzer 0 % (0-5); Neutrophil # 11.15 X10^3/uL (2.7-7.7); Neutrophil % 89.7 % (47-70); POSITIVE COUNT YES; POSITIVE MORPHOLOGY YES; Platelet Count 151 K/mm3 (150-450); RBC Distribution Width CV 21.2 % (11.6-14.6); RBC Distribution Width SD 74.4 fl (35.1-43.9); Red Blood Count 4.09 M/mm3 (4.6-6.2); White Blood Count 12.4 K/mm3 (4.4-11.0)
[2023-12-26 17:37] LABS: AST(SGOT) 48 U/L (15-37); Alanine Aminotransfer ALT/SGPT 30 U/L (16-61); Albumin, Serum 1.8 g/dL (3.2-5.0); Alkaline Phosphatase 355 U/L (45-117); Anion Gap 12 (5-15); BUN 34 mg/dL (7-18); BUN/Creat Ratio 37.3 RATIO (10-20); Bilirubin, Direct 1.59 mg/dL (0.00-0.30); Calcium,Total 8.7 mg/dL (8.5-10.1); Chloride 105 mmol/L (98-107); Creatinine, Serum 0.91 mg/dL (0.70-1.30); Differential Indicated SCAN CRITERIA MET; EST Glomerular Filtration Rate 85 mL/min (>60); Est Glom Filt Rate - Afr Amer 103 mL/min (>60); Globulin 3.3 g/dL (2.2-4.2); Glucose 91 mg/dL (74-106); Lipase 27 U/L (13-75); Potassium 3.6 mmol/L (3.5-5.1); Protein, Total 5.1 g/dL (6.4-8.2); Sodium Level 140 mmol/L (136-145)
[2023-12-26 17:48] LABS: Anisocytosis 1+; Differential Comment SCANNED
[2023-12-26 17:49] LABS: Lactic Acid 7.9 mmol/L (0.4-1.9)
--- NOTE | 2023-12-26 17:55 | CT_ITS ---
STUDY: CT ABDOMEN AND PELVIS WITH CONTRAST REASON FOR EXAM: Male, 78 years old. abdominal pain RADIATION DOSAGE (If Supplied By Facility): CTDIvol = ( 15.13 ) mGy, DLP = ( 964.36 ) mGycm TECHNIQUE: Transaxial images were obtained from the dome of the diaphragm to the symphysis pubis without oral contrast. IV 100mL [id number]-[id number] was administered. Sagittal and coronal images were reconstructed. Individualized dose optimization techniques were used for this CT. COMPARISON: None. FINDINGS: There are moderate-sized bilateral pleural effusions with compressive atelectasis in the lower lobes. [Heart size is normal There is mild coronary artery disease. The liver is enlarged and there is extensive diffuse hepatic metastasis.. There is pneumobilia status post biliary duct stent placement. There is also air seen within the gallbladder although there are no calcified stones. Normal spleen. There is a large mass in the pancreatic head and uncinate process with proximal dilatation of the pancreatic duct. There is an associated cyst possibly due to chronic pancreatitis Normal bilateral adrenal glands. There is diffuse dilatation of the renal collecting systems bilaterally possibly representing parapelvic cysts. There is also a large cortical cyst in the upper pole of the right kidney which will not require additional imaging . Normal visualized stomach. Normal small intestine. There is thickening of the newell of the ascending, transverse colon and descending colon with narrowing of the lumen. Inflammatory bowel disease not entirely excluded. No evidence for acute appendicitis There is diffuse mesenteric edema and massive ascites throughout the abdomen and pelvis as well as edematous changes in the subcutaneous fat of the flanks consistent with nonspecific anasarca. There is also mild nodular opacities within the peritoneal fat likely representing peritoneal carcinomatosis Atherosclerotic changes of the aorta without evidence for aneurysm. Normal inferior vena cava. Normal retroperitoneum. Normal urinary bladder. . Lumbar spine demonstrates degenerative changes CT/Abdomen/Pelvis W IV Cont ONLY IMPRESSION: Large mass in the head of the pancreas and uncinate process consistent with known pancreatic neoplasm extensive hepatic metastases and pneumobilia status post stent placement Diffuse mesenteric edema and massive ascites within the abdomen and pelvis with diffuse subcutaneous edema in the flanks consistent with nonspecific anasarca. Concentric thickening of the newell of the ascending, transverse and descending colon possibly due to nonspecific inflammatory bowel disease. No evidence for small bowel obstruction Other findings as above Electronically Signed: Jamie Watkins MD at 19:38 EDT ,
[2023-12-26 17:59] LABS: BNP,B-Type NATRIURETIC PEPTIDE 640.2 pg/mL (0-100)
[2023-12-26 19:00] VITALS: BP 122/78; PULSE 88; RESP 26; O2SAT 96
[2023-12-26 19:53] VITALS: BP 144/81; PULSE 91; RESP 16; TEMP 36.7; O2SAT 97
--- NOTE | 2023-12-26 20:22 | PCM.HP.STD ---
HPI - General General Date of Admission: 12/26/23 Date of Service: 12/26/23 Chief Complaint: Worsening lower extremity swelling, anasarca. HPI Narrative The patient is a 78 y/o M w/ PMHx: CKD stage II based on GFR trending, HTN, Chronic anemia, Former tobacco use, Hx Diabetes mellitus type II, recently 07/2023 diagnosed Metastatic Pancreatic cancer to the liver, lungs, abdominal cavity status post ERCP with biliary sphincterotomy and metal stent placement following with Dr. Worrell with most recent notes scanned 09/11/23 with recommendation per him for patient to be initiated on gemcitabine and Abraxane however family deferral with decision for holistic physician continued evaluation and treatment who now represents to the [facility] ED on 12/26/2023 secondary to worsening lower extremity swelling up into his abdomen with difficulty ambulating secondary to the edema with dyspnea worse with any exertional attempts prompting PCP discussion who referred him to the ED for consideration of paracentesis and diuresis with additionally decreased appetite. Patient notes some vague abdominal discomfort but not severe and no nausea, emesis, diarrhea, fever or chills. Family and patient notes intention to continue with homeopathic treatments and avoid any aggressive therapies understanding that he has significant metastatic disease. Workup in the ED included T98, heart 95, BP 125/73, respiratory rate 16, 96% on room air, CBC with WBC 12.4, he 1 12.1, MCV 95.6, platelet 151 with left shift and lymphopenia, CMP with BUN/creatinine 34/0.91, GFR 85, lactic acid 7.9, T. bili 1.80, D bili 1.59, AST/LT 48/30, alk phos 355, BNP 640.2, lipase 27, chest x-ray with diminished inspiratory effort with bibasilar atelectasis or infiltrates more severe in the left lower lobe, CT abdomen and pelvis with contrast with noted large mass in the head of the pancreas and uncinate process consistent with known pancreatic neoplasm with extensive hepatic metastases and pneumobilia status post stent placement, diffuse mesenteric edema and massive ascites within the abdomen and pelvis with diffuse subcutaneous edema in the flanks consistent with nonspecific anasarca, concentric thickening of the newell of the ascending, transverse and descending colon possibly secondary to not inflammatory bowel disease with no evidence of obstruction. Of note, ED physician did discuss concept of hospice with patient and family and they declined this concept but still do not want any chemotherapy. [facility] Medical History Metastasis from pancreatic cancer Chronic anemia CKD (chronic kidney disease), stage II Severe protein-calorie malnutrition Pancreatic cancer Diabetes mellitus, type 2 Former tobacco use Osteoarthritis HTN (hypertension) Home Medications ?Medication ?Instructions ?Recorded ?Last Taken ?Type cholecalciferol (vitamin D3) 1 tab PO DAILY 08/09/23 08/08/23 History testosterone 50 mg/5 gram (1 %) 50 mg transdermal DAILY 08/09/23 08/09/23 History transdermal gel potassium chloride 20 mEq 20 meq PO BID #20 tabs 12/07/23 Unknown Rx tablet,extended release bumetanide 0.5 mg tablet 0.5 mg PO DAILY 12/26/23 Unknown History thyroid (pork) 60 mg tablet (ORDERLY 60 mg PO DAILY 12/26/23 Unknown History Thyroid) Allergy/AdvReac Type Severity Reaction Status Date / Time No Known Allergies Allergy Verified 12/26/23 15:07 Family History Father Cancer Brother Diabetes Mother Hypertension HLD (hyperlipidemia) Surgical History S/P ERCP S/P carpal tunnel release H/O shoulder surgery H/O cervical spine surgery Social History household members: spouse and family housing: house current occupational status: retired Smoking Status: Former smoker how long ago did patient quit smoking: Quit 1971, smoked near 44 years. alcohol intake: never substance use type: does not use ROS ROS Narrative Admission Review of Systems: CONSTITUTIONAL: No fever, chills,+ weakness or fatigue. HEENT: Eyes: No visual loss, blurred vision, double vision. Ears, Nose, Throat: No hearing loss, sneezing, congestion, runny nose or sore throat. SKIN: No rash or itching, lesions, wounds except noted new onset + jaundiced appearance, occasional abrasion, ecchymoses. CARDIOVASCULAR: + Worsening BL LE swelling up into the abdomen, also BL LUE. No chest pain, chest pressure or chest discomfort, palpitations, orthopnea, syncopal events. RESPIRATORY: No shortness of breath, cough or sputum, wheezing, hemoptysis. GASTROINTESTINAL: + anorexia, abdominal distention, mild discomfort. No nausea, vomiting, diarrhea, abdominal pain, melena, BRBPR. GENITOURINARY: No dysuria, frequency, urgency or retention. NEUROLOGICAL: No headache, dizziness, syncope, paralysis, ataxia, numbness or tingling in the extremities, focal weakness, change in bowel or bladder control, seizure. MUSCULOSKELETAL: + muscle, back pain, joint pain or stiffness. HEMATOLOGIC: + Chronic anemia with easy bleeding/bruising. LYMPHATICS: No enlarged nodes. No history of splenectomy. PSYCHIATRIC: No history of depression or anxiety. ENDOCRINOLOGIC: No reports of sweating, cold or heat intolerance. No polyuria or polydipsia. ALLERGIES: No history of asthma, hives, eczema or rhinitis. Vital Signs Vital Signs Vital Signs: 12/26/23 15:05 12/26/23 17:05 12/26/23 17:21 Temperature 98 F Temperature Source Oral Pulse Rate 95 59 L Respiratory Rate 16 17 Respiratory Effort Normal Respiratory Pattern Normal Blood Pressure 125/73 H 112/45 L Blood Pressure Mean 90 67 Pulse Ox 96 98 Oxygen Delivery Method Room Air 12/26/23 19:00 12/26/23 19:53 Temperature 98.1 F Temperature Source Pulse Rate 88 91 Respiratory Rate 26 H 16 Respiratory Effort Respiratory Pattern Blood Pressure 122/78 H 144/81 H Blood Pressure Mean 92 102 Pulse Ox 96 97 Oxygen Delivery Method Room Air Physical Exam Narrative Physical Examination: General: Awake, alert, oriented x 3 and cooperative, seated upright in the ED bed, no acute distress, denies any pain or acute issues, notes difficulty walking/functioning secondary to severity of edema. HEENT: AT/NC, EOMI, PERRLA, MMM, no carotid bruits or JVD noted, see skin. Lungs: Diminished, greater bases, appropriate effort, mild rales bases, no evidence of any distress, no ronchi or wheezing. Heart: Regular rate and rhythm; no gallop, rub audible. Abdomen: Soft, NTTP, mildly hyperactive BS, distended, some mid upper abdomen tympanitic sounds, difficult to appreciate HSM given edema and distention with ascites. Extremities: No cyanosis, no clubbing, significant pedal to upper abdomen 3+ pitting edema as well as 3+ pitting edema bilateral upper extremity. Neurological: Patient awake, alert, oriented as noted, cognitive function intact; pupils equally reactive to light and accommodation, cranial nerves grossly normal, moving all 4 extremities, no focal deficits, strength to severely moderately globally decreased. Psychiatric: Affect appears fatigued but interactive and intermittently smiling during evaluation, no acute evidence of depressive or anxiety feelings. Rtainly is high risk given impending diagnosis. Results Lab / Micro Data 12/26/23 17:05 12/26/23 17:05 Labs: Laboratory Results - last 24 hr 12/26/23 17:05: WBC 12.4 H, RBC 4.09 L, Hgb 12.1 L, Hct 39.1 L, MCV 95.6 H, MCH 29.6, MCHC 30.9 L, RDW Std Deviation 74.4 H, RDW Coeff of Maru 21.2 H, Plt Count 151, MPV 10.6, Immature Gran % (Auto) 0.700, Neut % (Auto) 89.7 H, Lymph % (Auto) 6.1 L, [place]oca % (Auto) 3.0, Eos % (Auto) 0.3, Baso % (Auto) 0.2, Absolute Neuts (auto) 11.2 H, Absolute Lymphs (auto) 0.76 L, Nucleated RBC % 0, Differential Comment SCANNED, Anisocytosis 1+, Sodium 140, Potassium 3.6, Chloride 105, Carbon Dioxide 23.0, Anion Gap 12, BUN 34 H, Creatinine 0.91, Est GFR (MDRD) Af Amer 103, Est GFR (MDRD) Non-Af 85, BUN/Creatinine Ratio 37.3 H, Glucose 91, Lactic Acid 7.9 H*, Calcium 8.7, Total Bilirubin 1.80 H, Direct Bilirubin 1.59 H, AST 48 H, ALT 30, Alkaline Phosphatase 355 H, B-Natriuretic Peptide 640.2 H, Total Protein 5.1 L, Albumin 1.8 L, Globulin 3.3, Lipase 27 Imaging Radiology Impression Chest X-Ray 12/26/23 16:30 IMPRESSION: Diminished inspiratory effort with bibasilar atelectasis or infiltrates more severe in left lower lobe Electronically Signed: Jamie Watkins MD at 16:50 EDT , Abdomen/Pelvis CT 12/26/23 17:55 IMPRESSION: Large mass in the head of the pancreas and uncinate process consistent with known pancreatic neoplasm extensive hepatic metastases and pneumobilia status post stent placement Diffuse mesenteric edema and massive ascites within the abdomen and pelvis with diffuse subcutaneous edema in the flanks consistent with nonspecific anasarca. Concentric thickening of the newell of the ascending, transverse and descending colon possibly due to nonspecific inflammatory bowel disease. No evidence for small bowel obstruction Other findings as above Electronically Signed: Jamie Watkins MD at 19:38 EDT , Assessment & Plan Assessment/Plan (1) Anasarca: PLAN: Plan The patient is a 78 y/o M w/ PMHx: CKD stage II based on GFR trending, HTN, Chronic anemia, Former tobacco use, Hx Diabetes mellitus type II, recently 07/2023 diagnosed Metastatic Pancreatic cancer to the liver, lungs, abdominal cavity status post ERCP with biliary sphincterotomy and metal stent placement following with Dr. Worrell with most recent notes scanned 09/11/23 with recommendation per him for patient to be initiated on gemcitabine and Abraxane however family deferral with decision for holistic physician continued evaluation and treatment who now represents to the [facility] ED on 12/26/2023 secondary to worsening lower extremity swelling up into his abdomen with difficulty ambulating secondary to the edema with dyspnea worse with any exertional attempts prompting PCP discussion who referred him to the ED for consideration of paracentesis and diuresis with additionally decreased appetite. #1. Acute worsening edema, ascites, anasarca in addition to concurrent bilateral moderate pleural effusions secondary to significant metastatic pancreatic cancer to the liver, lungs and abdominal cavity with evidence of carcinomatosis: Will admit to [facility], maintain on low Na/DM diet, water 1500 ml restriction, lasix IV diuresis, will request coags, will consult radiology for diagnostic and therapeutic paracentesis, will place neck tristin wraps with lower extremity elevation while diuresing, PT/OT/case management consulted for discharge planning. Given patient history he is a significant hospice candidate but family and patient are declining this at this time but also declining any chemotherapy or further treatments. #2. Lactic acidosis: Admission lactic acid 7.9, no recent comparisons, potentially related with acute presentation, CT abdomen pelvis with noted moderate sized bilateral pleural effusions with compressive atelectasis in both lobes with no obvious infiltrate but will plan repeat chest x-ray following diuresis and may need to consider also thoracentesis in addition to paracentesis but suspect likely fluid accumulation will recur given history, significant underlying metastatic cancer process with CT also demonstrating peritoneal carcinomatosis, given significant overload deferring any hydration but will trend lactic acid per facility protocol, procalcitonin pending. #3. Chronic anemia, currently appears macrocytic: Admission hemoglobin 12.1, MCV 95.6, baseline appears 11-12, likely related with underlying cancer, continue to trend. #4. Chronic Kidney Disease Stage appears to have vacillated based on GFR but remotely had been stage II however 08/12/2023 through 12/13/2023 seemed improved: Admission BUN/Cr 34/0.91, GFR 85, baseline renal function 0.7-0.9 primarily, repeat BMP in AM. #5. Hypertension: Holding home regimen, will maintain on IV Lasix given presentation as noted, PRN hydralazine. #6. History of Diabetes mellitus type II: Previously noted history, most recent hemoglobin A1c 12/26/23 4.8% and prior to this 11/08/23 hemoglobin A1c 6.1%, will maintain on ADA diet with Accu-Cheks with insulin sliding scale. #7. Former tobacco use: Encourage continued tobacco cessation. #8. Severe protein calorie malnutrition: Evidenced by significant poor oral intake, weight loss over a short segment of time, nutrition consult for recommendations. #9. DVT prophylaxis: SCDs, defer chemoprophylaxis for paracentesis as noted. #10. CODE status: Patient HCPOA is not in place but his who is present is his decision-maker if necessary. Discussed CODE status at length including difference between FULL code, DNR-CCA and DNR-CC status. Following discussions about the differences in these status, requested Full Code status. Did frankly discuss given his disease process his prognosis should something like this occur was very poor and family understands this with decision to continue Full Code status. Advanced Care Planning Face to Face Time: 16 minutes. Charges/Coding Visit Charges Inpatient E&M: 28635 Init Hosp L3 Procedures Hospitalists Procedures: 74809 Advncd Care Plan 30 Min
[2023-12-26 20:24] LABS: Mucous, Urine 0 SEEN /hpf (<or=2+); Red Blood Cells-Urine 0 SEEN /hpf (0-5); Squamous Epithelial Cells - UA 0 SEEN /hpf (0-5)
[2023-12-26 20:44] LABS: Color, Urine Yellow (Yellow); Glucose, Dipstick Normal (Normal); Ketone-Dipstick Negative (Negative); Leukocyte Esterase-Dipstick Negative /ul (Negative); Nitrite-Dipstick Negative (Negative); Occult Blood-Urine Negative /ul (Negative); Protein-Dipstick 30 mg/dl (Negative); Specific Gravity, Urine 1.015 (1.002-1.030); Urine Bilirubin Dipstick Negative (Negative); Urine Clarity Clear (Clear); Urine Urobilinogen 1 mg/dl (Normal)
[2023-12-26 21:00] VITALS: BP 134/79; PULSE 94; RESP 18; O2SAT 96
[2023-12-26 21:11] LABS: Reflex Lactate? Y
[2023-12-26 21:11] LABS: Bacteria 1+ /hpf (None Seen); White Blood Cells 0-5 SEEN /hpf (0-5)
[2023-12-26 21:21] LABS: Magnesium 1.8 mg/dL (1.6-2.6); Phosphorus 2.8 mg/dL (2.5-4.9)
[2023-12-26 21:31] LABS: Procalcitonin 2.74 ng/mL (0.00-0.09)
[2023-12-26 22:32] VITALS: BP 132/80; PULSE 95; RESP 17; TEMP 36.6; O2SAT 95
[2023-12-26 22:35] VITALS: BMI 25.4; BMI 26.3
[2023-12-26 23:17] LABS: Lactic Acid 8.3 mmol/L (0.4-1.9)
[2023-12-26] MEDS: Menthol/Lanolin/Calamine/Znox 113 GM Tube 1 APPLIC TOPICAL (23:46)
[2023-12-26] MEDS: 0.9% Saline Lock 10 ML Syringe IV (23:58)
[2023-12-27] VITALS (10 sets, daily range): BP systolic 119–142; BP diastolic 68–96; PULSE 83–101; RESP 16–20; TEMP 36.4–36.9; O2SAT 95–98
[2023-12-27] MEDS: Potassium Chloride Oral Tablet 20 MEQ PO (00:29)
[2023-12-27 01:22] LABS: Bedside Glucose 92 mg/dL (74-106)
[2023-12-27 06:35] LABS: Absolute Lymphocyte Count 1.06 X10^3/uL (0.83-4.51); Absolute Neutrophil Count 9.9 X10^3/uL (2.0-7.7); Basophil# 0.03 X10^3/uL; Basophil% 0.3 % (0-1); Eosinophil# 0.16 X10^3/uL; Eosinophils% 1.4 % (0-5); Hematocrit 30.8 % (40-54); Hemoglobin 9.5 g/dL (13.0-16.5); Lymphocyte # 1.06 X10^3/ul (0.83-4.51); Mean Corp Hgb Conc 30.8 g/dL (32-36); Mean Corpuscular Hgb 29.6 pg (27.0-32.0); Mean Platelet Vol. 9.9 fl (6.2-12.0); Monocyte% 4.3 % (0-10); NRBC Flagged by Analyzer 0 % (0-5); Neutrophil # 9.89 X10^3/uL (2.7-7.7); Neutrophil % 84.1 % (47-70); POSITIVE MORPHOLOGY YES; Platelet Count 152 K/mm3 (150-450); RBC Distribution Width CV 21.3 % (11.6-14.6); RBC Distribution Width SD 73.8 fl (35.1-43.9); Red Blood Count 3.21 M/mm3 (4.6-6.2); White Blood Count 11.8 K/mm3 (4.4-11.0)
[2023-12-27] MEDS: Thyroid 60 MG Tablet PO (06:37)
[2023-12-27 06:57] LABS: Differential Indicated SCAN CRITERIA MET
[2023-12-27 07:06] LABS: International Normalized Ratio 1.3
[2023-12-27 07:07] LABS: Partial Thromboplast Time 28.8 Seconds (24.1-36.2)
[2023-12-27 07:10] LABS: Bedside Glucose 85 mg/dL (74-106)
[2023-12-27 07:11] LABS: ALB/GLOB Ratio 0.5 RATIO (0.9-2.4); AST(SGOT) 37 U/L (15-37); Alanine Aminotransfer ALT/SGPT 27 U/L (16-61); Albumin, Serum 1.5 g/dL (3.2-5.0); Alkaline Phosphatase 327 U/L (45-117); Anion Gap 11 (5-15); BUN 33 mg/dL (7-18); BUN/Creat Ratio 41.1 RATIO (10-20); Calcium,Total 8.4 mg/dL (8.5-10.1); Chloride 107 mmol/L (98-107); EST Glomerular Filtration Rate 99 mL/min (>60); Est Glom Filt Rate - Afr Amer 120 mL/min (>60); Estimated Creatinine Clearance 68.67 ml/min; Globulin 2.9 g/dL (2.2-4.2); Glucose 81 mg/dL (74-106); Potassium 3.4 mmol/L (3.5-5.1); Protein, Total 4.4 g/dL (6.4-8.2); Sodium Level 142 mmol/L (136-145)
[2023-12-27 07:19] LABS: Lactic Acid 7.6 mmol/L (0.4-1.9)
[2023-12-27] MEDS: Potassium Chloride Oral Tablet 20 MEQ 40 MEQ PO (08:25)
[2023-12-27] MEDS: Furosemide 40 MG/4 ML Vial IV ×3 (08:28→17:07)
[2023-12-27] MEDS: Glucerna Shake 120 ML LIQUID PO (08:28)
[2023-12-27] MEDS: Menthol/Lanolin/Calamine/Znox 113 GM Tube 1 APPLIC TOPICAL (08:28)
[2023-12-27] MEDS: 0.9% Saline Lock 10 ML Syringe IV ×3 (08:29→17:07)
--- NOTE | 2023-12-27 10:05 | CASEMGMT ---
Addendum entered by Rafaela Carmona 12/27/23 16:22: RN JESU into pt room, pt dtr and present. Pt states pt does have care with a nurse, [facility] and that D[facility] will be delivered on Saturday. The [facility] sausage tier called pt while RN CM was in the room and states that the pt needs skilled HH but that they want it through the [facility]. Typically the VA PCP has to order this to be covered by the [facility]. The sausage tierLetty states for this RN JESU to call the 24 hour nurse line and they will get it set up today. She gave the number of . TC to this number which is the [facility] in [place]. KAPIL NAILS then trf'd to [facility]. Spoke with [facility] who states she cannot get anyone to assist this RN CM in getting this set up today. KAPIL NAILS in the pt room, asked her to make family aware of this as the sausage tier stated it would happen today. She would not speak to family or allow to be on speaker. Pt and family aware that should they dc on the weekend, they can follow up with to set up the HHC and if it is not as timely as they prefer, they may call Dr. Basilio to set up HHC in the community. Pt dtr asks if they can then switch at a later time to the [facility]. Made aware that they can do this. Received Letty's phone number from pt - [phone], left vm that the HH was not able to be set up today. Pt feels safe if he should dc over the weekend. He has a rollator at home and has assistance from family at home to help. Addendum entered by Rafaela Carmona 12/27/23 14:19: Email to TCC program and received response back with phone and email of Norbert Marquez. Neither phone ext or email went through. TC to [place], reached Dr. Marquez's office, left message with nurse Davis requesting confirmation of what DME will be delivered to pt home and if HHC will be started. Will await returned call. Original Note: KAPIL CM Assessment: Face to Face with pt for initial transition planning/care coordination assessment. KAPIL NAILS introduced self and role at [facility], pt voices understanding and consents to assessment. Pt is A&O x4 and answers all questions appropriately at this time. Pt sitting up in chair in no distress but appears tired. Care providers, pharmacy, and demographics verified/updated. Admitting Dx: metastatic cancer with ascites/anasarca Strata Score: 3 PCP:[facility] Specialists:Gm, onc; Lisa Baird; [facility] Preferred Pharmacy: [facility] Insurance: O [facility] Prescription Benefit: yes LNOK: Tiffany Renee, Living Arrangements: Pt lives with and son and dtr in law and grandchildren are staying with them currently in a two story home with 3 steps to enter. Pt states he lives on the main floor and the [facility] is coming soon to put in a grab bar at the garage entrance. Pt denies concerns at home. Transportation: Pt provides transportation. DME:rollator, [facility] with sufficient supply of strips and lancets. Pt states the [facility] is coming on the 8th with DME but he is unsure of what DME. HHC/SNF: Pt thinks HH is in the process of being set up with the [facility]. Denies SNF stays. Pt states no concerns with going home at time of dc. KAPIL NAILS to email the TCC program through the [facility] to verify if HHC services will be set up with pt. Pt states no further concerns/needs. CM to follow. Advised pt to ask CM if any further question/concerns/needs arise, voices understanding. Pt Goal: Home Plan: Home-follow for [facility] HHC to be set up Tawana DICK CM
[2023-12-27 10:35] LABS: Reflex Lactate? Y
[2023-12-27 11:29] LABS: Bedside Glucose 112 mg/dL (74-106)
[2023-12-27 12:08] LABS: Lactic Acid 9.8 mmol/L (0.4-1.9)
--- NOTE | 2023-12-27 12:36 | PN_ITS ---
Subjective Subjective Patient seen and examined. HE complained of wanting to go to the bathroom. HE had no other acute complaints and review of systems is otherwise negative. He has remained hemodynamically stable. His lactic acid has trended up further to 9.8. Objective Data Objective Data Vital Signs: Vital Signs Temp Pulse Resp BP Pulse Ox O2 Del Method 97.8 F 87 18 132/71 H 96 Room Air 12/27/23 08:20 12/27/23 08:20 12/27/23 08:20 12/27/23 08:20 12/27/23 08:20 12/27/23 08:46 Oxygen Delivery Method Room Air Weight: 158 lb 1.143 oz Body Mass Index (BMI) 25.4 Intake & Output: Intake and Output for Last 24 Hours 12/25/23 12/26/23 12/27/23 23:59 23:59 23:59 Intake Total 660 / 660 Output Total 600 / 600 Balance 60 / 60 Lab / Micro Data 12/27/23 06:25 12/27/23 06:25 Labs: Laboratory Results - last 24 hr 12/26/23 17:05: WBC 12.4 H, RBC 4.09 L, Hgb 12.1 L, Hct 39.1 L, MCV 95.6 H, MCH 29.6, MCHC 30.9 L, RDW Std Deviation 74.4 H, RDW Coeff of Maru 21.2 H, Plt Count 151, MPV 10.6, Immature Gran % (Auto) 0.700, Neut % (Auto) 89.7 H, Lymph % (Auto) 6.1 L, Lamar % (Auto) 3.0, Eos % (Auto) 0.3, Baso % (Auto) 0.2, Absolute Neuts (auto) 11.2 H, Absolute Lymphs (auto) 0.76 L, Nucleated RBC % 0, Differential Comment SCANNED, Anisocytosis 1+, Sodium 140, Potassium 3.6, Chloride 105, Carbon Dioxide 23.0, Anion Gap 12, BUN 34 H, Creatinine 0.91, Est GFR (MDRD) Af Amer 103, Est GFR (MDRD) Non-Af 85, BUN/Creatinine Ratio 37.3 H, Glucose 91, Lactic Acid 7.9 H*, Calcium 8.7, Total Bilirubin 1.80 H, Direct Bilirubin 1.59 H, AST 48 H, ALT 30, Alkaline Phosphatase 355 H, B-Natriuretic Peptide 640.2 H, Total Protein 5.1 L, Albumin 1.8 L, Globulin 3.3, Lipase 27 12/26/23 20:20: Urine Color Yellow, Urine Clarity Clear, Urine pH 6.0, Ur Specific [place] 1.015, Urine Protein 30 H, Urine Glucose (UA) Normal, Urine Ketones Negative, Urine Occult Blood Negative, Urine Nitrite Negative, Urine Bilirubin Negative, Urine Urobilinogen 1 H, Ur Leukocyte Esterase Negative, Urine RBC 0 SEEN, Urine WBC 0-5 SEEN, Ur Squamous Epith Cells 0 SEEN, Urine Bacteria 1+, Urine Mucus 0 SEEN 12/26/23 21:00: Phosphorus 2.8, Magnesium 1.8, Procalcitonin 2.74 H 12/26/23 22:35: Lactic Acid 8.3 H* 12/26/23 23:33: POC Glucose 92 12/27/23 06:25: WBC 11.8 H, RBC 3.21 L, Hgb 9.5 L, Hct 30.8 L, MCV 96.0 H, MCH 29.6, MCHC 30.8 L, RDW Std Deviation 73.8 H, RDW Coeff of Maru 21.3 H, Plt Count 152, MPV 9.9, Immature Gran % (Auto) 0.900, Neut % (Auto) 84.1 H, Lymph % (Auto) 9.0 L, Lamar % (Auto) 4.3, Eos % (Auto) 1.4, Baso % (Auto) 0.3, Absolute Neuts (auto) 9.9 H, Absolute Lymphs (auto) 1.06, Nucleated RBC % 0, PT 16.0 H, INR 1.3, APTT 28.8, Sodium 142, Potassium 3.4 L, Chloride 107, Carbon Dioxide 25.0, Anion Gap 11, BUN 33 H, Creatinine 0.80, Estim Creat Clear Calc 68.67, Est GFR (MDRD) Af Amer 120, Est GFR (MDRD) Non-Af 99, BUN/Creatinine Ratio 41.1 H, Glucose 81, Lactic Acid 7.6 H*, Calcium 8.4 L, Total Bilirubin 1.60 H, AST 37, ALT 27, Alkaline Phosphatase 327 H, Total Protein 4.4 L, Albumin 1.5 L, Globulin 2.9, Albumin/Globulin Ratio 0.5 L 12/27/23 06:34: POC Glucose 85 12/27/23 11:09: POC Glucose 112 H 12/27/23 11:20: Lactic Acid 9.8 H* Radiography Diagnostic Testing: Radiology Impression Chest X-Ray 12/26/23 16:30 IMPRESSION: Diminished inspiratory effort with bibasilar atelectasis or infiltrates more severe in left lower lobe Electronically Signed: Jamie Watkins MD at 16:50 EDT Reading Location ID and State: [facility] / [place] Tel [phone], Service support , Abdomen/Pelvis CT 12/26/23 17:55 IMPRESSION: Large mass in the head of the pancreas and uncinate process consistent with known pancreatic neoplasm extensive hepatic metastases and pneumobilia status post stent placement Diffuse mesenteric edema and massive ascites within the abdomen and pelvis with diffuse subcutaneous edema in the flanks consistent with nonspecific anasarca. Concentric thickening of the newell of the ascending, transverse and descending colon possibly due to nonspecific inflammatory bowel disease. No evidence for small bowel obstruction Other findings as above Electronically Signed: Jamie Watkins MD at 19:38 EDT , Physical Exam Const alert and oriented x3 Constitutional Narrative: frail, thin. General Appearance: cooperative HEENT normocephalic and head/scalp atraumatic Mouth: dry mucous membranes Eyes PERRL and EOMs intact bilaterally Neck no lymphadenopathy and supple Lymph Lymphatic: no lymphadenopathy noted Resp normal respiratory effort, normal air movement and clear to auscultation bilaterally Cardio regular rate, regular rhythm, S1 normal heart sound, S2 normal heart sound and no murmurs GI GI Narrative: obese, positive fluid thrill and shifting dullness Extremity normal capillary refill Extremity Narrative: bilateral 2+ pitting pedal edema General Extremity: no tenderness to palpation of joints or extremities Skin General Skin Exam: no breakdown Neuro CN's II-XII intact bilaterally, no focal motor deficits, no sensory deficits noted and deep tendon reflexes 2+ bilaterally Motor Exam: general weakness Psych thought process normal, cooperative and affect normal Appearance: appropriate Assessment & Plan Assessment/Plan (1) Abdominal ascites: QUALIFIERS: Ascites type: malignant Qualified Code(s): R18.0 - Malignant ascites (2) Mass of pancreas: (3) Abnormal weight loss: PLAN: Plan #Anasarca and ascites due to metastatic pancreatic cancer with peritoneal carcinomatosis * Patient does have metastatic pancreatic cancer with mets to the liver, lung and peritoneum. As well as moderate bilateral pleural effusions. * Was admitted with a complaint of worsening generalized edema. He did have paracentesis today with removal of 3.2 L of fluid. * Currently being diuresed with IV Lasix and on fluid restriction at 1500 cc daily. * Patient has refused treatment for the pancreatic cancer he follows with Dr. Snow. I did speak to Dr. Ayala today who states patient has opted for holistic treatment though he still follows with Dr. Stoll out of his preference. He has refused hospice as well. * Will speak to family about goals of care as it is no clear exactly what the EMS for this admission. #Lactic acidosis * Lactic acid was 7.9 on admission and trended up to 9.8. In light of his liver mets with peritoneal carcinomatosis, the lactic acidosis is expected * there is no clear evidence of infection * will monitor. Cannot hydrate aggressively with iVF in light of the anasarca * #Hypertension: on IV lasix. Oral BP meds held on admission #Type 2 diabetes mellitus: Last A1c was 6.1. On diabetic diet. Insulin sliding scale. #Severe protein calorie malnutrition: Nutrition on board. Likely due to metastatic cancer. #DVT prophylaxis: SCDs Charges/Coding Visit Charges Inpatient E&M: 30396 Subs Hosp L3
--- NOTE | 2023-12-27 12:44 | CHAPLAIN ---
Type of Pastoral Visit ___ Initial Visit _x__ Follow-up Visit ___ On-call Visit ___ General Patient Visit ___ Spiritual Assessment ___ Family Conference ___ Bereavement ___ Rapid Response ___ Code Blue ___ Other (describe below) Pastoral Care Referral From _x__ Patient _x__ Family ___ Nurse ___ Physician ___ Vault Cashier ___ Business Management Manager ___ Other (describe below) Sacrament/Intervention _x__ Active listening ___ Anointing ___ Congregation ___ Bereavement ___ Communion ___ Dorie exploration ___ ___ Life review _x__ Prayer ___ Reconciliation ___ Sacrament of Sick _x__ Supportive presence ___ Wedding ___ Other (describe below) Pastoral Comments family asked for a follow up visit to this patient who had just finished some therapy and received his lunch; pt is alert, but tired; pt gives his goal of getting home today after the planned procedure is done; pt is open to spiritual care and 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
[2023-12-27] MEDS: Acetaminophen 325 MG Tablet 650 MG PO (12:48)
[2023-12-27] MEDS: Lidocaine 2% (20 ml mdv) 20 ML Vial INFILT (13:58)
--- NOTE | 2023-12-27 14:00 | FLU_PTH ---
PATIENT: AMBROSE TONEY LOC: [facility] U#:[id number] AGE/SX: 78/M ROOM: VT308 RE12/26/[address]: Dr. Melvina Tan MD : 1945 BED: 1 DIS: 12/27/2023 SPEC #: [id number] RECD: 12/30/23 07:41 STATUS: MELLISSA REYang #: [id number] COSME: 12/27/23 14:[address]: Melvina Tan DEPT: CYTOLOGY RECD BY: uRfina Benavides ENTERED: 12/30/23 07:42 SP TYPE: Fluid OTHR DR: MD Dr. Phylicia Garcia, Tissues: PARACENTESIS FLUID Procedures: Special Stain Group II Surgery Specimen Level IV Cytospin Fluid Comments: @ Specimen number changed from [id number] to [id number] @ on 12/30/23 at 0913 by HEADER OPERATION: Ultrasound guided paracentesis fluid PRE-OP DIAGNOSIS: Ascites TISSUE SUBMITTED: Paracentesis fluid for cytology DIAGNOSIS CYTOLOGY Paracentesis fluid for cytology (cytospin and cellblock): Rare atypical epithelial cells present. AM 12/31/2023 CYTOLOGY STUDY Slides are reviewed. CYTOLOGY GROSS Received is 85 ml of hazy-yellow fluid labeled with the patient's name and and designated per the requisition as Paracentesis fluid. Submitted for cytology preparation including cell block. 12/30/2023 TC:? CPT: 34650,37988
[2023-12-27 14:25] LABS: Cytology, Body Fluid / CSF SEE PATHOLOGY REPORT
--- NOTE | 2023-12-27 14:27 | PRO.PCM_ITS ---
Procedure Report Date of Procedure: 12/27/23 Assessment & Plan Assessment/Plan (1) Abdominal ascites: QUALIFIERS: Ascites type: malignant Qualified Code(s): R18.0 - Malignant ascites PLAN: PROCEDURE: Ultrasound guided paracentesis ORDERING PROVIDER: Dr. Kathy Brasher INDICATION: Male, 78 years old. Abdominal ascites. PROVIDER: ENRRIQUE Mota TECHNIQUE: The risks, benefits, and alternatives to the procedure were explained to the patient. The specific risks of bleeding, infection, and damage to bowel were detailed and accepted. Witnessed informed consent was obtained. The abdomen was ultrasonographically surveyed. An appropriate pocket of fluid was identified in the right upper quadrant. The skin was prepped with chlorhexidine and sterile field established. 2% lidocaine was used for local anesthetic. Using ultrasound guidance, the peritoneal cavity was accessed with a 5-Lux[place]bourgish paracentesis needle/catheter system. The trocar was removed. A total of 3200 ml of clear yellow colored fluid was removed from the peritoneal cavity. 100 mL of this fluid was collected and sent to laboratory for analysis. The catheter was removed and a sterile dressing was applied. The procedure was well tolerated. IMPRESSION: Successful ultrasound guided paracentesis with right upper quadrant access site. Procedures Radiology Radiology US Procedures: 86003 Paracentesis
[2023-12-27 14:56] LABS: Appearance/Body Fluid CLEAR; Color/Body Fluid YELLOW; Source- Body Fluid PARACENTESIS; Specific Gravity, Body Fluid 1.012
[2023-12-27 14:58] LABS: Body Fluid Mononuclear WBC # 0.067 10^3/uL; Body Fluid Mononuclear WBC % 90.6 %; Body Fluid Polynuclear WBC # 0.007 10^3/uL; Body Fluid Polynuclear WBC % 9.4 %; Body Fluid Total Cells Counted 0.086 10^3/ul; White Blood Count/Body Fluid 0.074 10^3/uL
--- NOTE | 2023-12-27 15:26 | CASEMGMT ---
Social Work- Pt has directives naming , Tiffany, as primary agent on chart. TORSTEN Barbosa
[2023-12-27] MEDS: 0.9% Normal Saline (1000mL) 1,000 ML 150 ML IV (15:50)
[2023-12-27 16:47] LABS: Lymphocytes 50 %; Macrophages 36 %; Mesothelial Cells 10 %; Monocytes 2 %; Neutrophil (Segs) 2 %
[2023-12-27 17:00] LABS: Auto B Fluid Analyzer BKGD Ct COUNTS W/IN LIMITS (W/IN LIMITS)
[2023-12-27 17:01] LABS: Body Fluid QC Type(s) BF1Q; Red Cell Count/Body Fluid 220 /mm3
[2023-12-27 17:30] LABS: Bedside Glucose 87 mg/dL (74-106)
--- NOTE | 2023-12-27 17:58 | PCM.DC ---
Discharge Instructions Diet Discharge Diet: Low fat / Low cholesterol Activity Discharge Activity: Return to Normal Activity Dressing / Incision Call your doctor if you observe: Fever of 101 or Higher, Shortness of breath, Dizziness, Swelling in the ankles and Chest pain Follow Up Care Test Results: Test results from this visit will be discussed in further detail at your follow-up appointment, if applicable. Discharge Plan Admission Admit Date/Time: 12/26/23 20:40 Primary Reason for Your Visit: metastatic pancreatic cancer Attending Provider: Melvina Tan Primary Care Provider: Phylicia Serra Consulting Providers: Kathy Brasher Instructions Patient Instructions: Pancreatic Cancer Dc Discharge Orders/Prescriptions Prescriptions: Continued cholecalciferol (vitamin D3) 1 tab PO DAILY Patient Comments: PT ORDERS ONLINE, DOESNT KNOW THE STRENGTH testosterone 50 mg/5 gram (1 %) gel 50 mg transdermal DAILY potassium chloride 20 mEq tablet extended release 20 meq PO BID Qty: 20 0RF bumetanide 0.5 mg tablet 0.5 mg PO DAILY thyroid (pork) [CERTIFIED HEALTH EDUCATION SPECIALIST Thyroid] 60 mg tablet 60 mg PO DAILY potassium chloride 20 mEq tablet,ER particles/crystals 20 meq PO DAILY Referrals / Follow Up: Phylicia Serra DO [Primary Care Provider] - Within 1 Week Jose Worrell DO [Med Staff - Active Staff] - Within 1 Week Disposition Disposition (needs filled in before D/C Order can be placed): Against Medical Advice
--- NOTE | 2023-12-27 17:59 | DS.PCM_ITS ---
Providers Date of Admission: 12/26/23 Date of Discharge: 12/27/23 Primary Care Physician: Dr. Phylicia Serra, DO Reason For Visit: METASTIC CANCER W/ ASCITES /ANASARCA/ Diagnosis Discharge Diagnosis (1) Abdominal ascites: Status: Acute Code(s): R18.8 - Other ascites Qualifiers: Ascites type: malignant Qualified Code(s): R18.0 - Malignant ascites (2) Mass of pancreas: Status: Acute Code(s): K86.89 - Other specified diseases of pancreas (3) Abnormal weight loss: Status: Acute Code(s): R63.4 - Abnormal weight loss Plan #Anasarca and ascites due to metastatic pancreatic cancer with peritoneal carcinomatosis * Patient does have metastatic pancreatic cancer with mets to the liver, lung and peritoneum. As well as moderate bilateral pleural effusions. * Was admitted with a complaint of worsening generalized edema. He did have paracentesis today with removal of 3.2 L of fluid. * Currently being diuresed with IV Lasix and on fluid restriction at 1500 cc daily. * Patient has refused treatment for the pancreatic cancer he follows with Dr. Snow. I did speak to Dr. Ayala today who states patient has opted for holistic treatment though he still follows with Dr. Stoll out of his preference. He has refused hospice as well. * Will speak to family about goals of care as it is no clear exactly what the EMS for this admission. #Lactic acidosis * Lactic acid was 7.9 on admission and trended up to 9.8. In light of his liver mets with peritoneal carcinomatosis, the lactic acidosis is expected * there is no clear evidence of infection * will monitor. Cannot hydrate aggressively with iVF in light of the anasarca * #Hypertension: on IV lasix. Oral BP meds held on admission #Type 2 diabetes mellitus: Last A1c was 6.1. On diabetic diet. Insulin sliding scale. #Severe protein calorie malnutrition: Nutrition on board. Likely due to metastatic cancer. #DVT prophylaxis: SCDs Medications at Discharge Home Medications cholecalciferol (vitamin D3) 1 tab PO DAILY 08/09/23 testosterone 50 mg/5 gram (1 %) transdermal gel 50 mg transdermal DAILY 08/09/23 potassium chloride 20 mEq tablet,extended release 20 meq PO BID #20 tabs 12/07/23 bumetanide 0.5 mg tablet 0.5 mg PO DAILY 12/26/23 thyroid (pork) 60 mg tablet ([employer] Thyroid) 60 mg PO DAILY 12/26/23 potassium chloride 20 mEq tablet,extended release(part/cryst) 20 meq PO DAILY k replacement 12/27/23 Hospital Course Operations None Procedures Paracentesis Summary of Care Provided Minutes Spent on Discharge: 65 Hospital Course: Patient is a 78-year-old male with a past medical history as outlined including pancreatic cancer with mets to the liver, lungs and abdominal cavity and peritoneum s/p ERCP with biliary sphincterotomy and stent placement. He followed with Dr. Burch with his recent notes from 09/11/2023 painful patient to be started on gemcitabine and Abraxane. Patient however opted for holistic treatment and had been following with a holistic physician in [place] though he saw Dr. Ayala frequently for follow-up scans. He went see his PCP on the day of presentation due to worsening lower extremity swelling extending up to his abdomen with difficulty ambulating due to the edema with exertional shortness of breath. He was referred to the ED for consideration of paracentesis and diuresis. On admission WBC was 12.4. Chest x-ray showed bibasilar atelectasis or infiltrates more severe in the left lower lobe. CT of the abdomen and pelvis with contrast showed large mass in the head of the pancreas and uncinate process consistent with known neoplasm with extensive hepatic metastasis and pneumobilia s/p stent placement, diffuse mesenteric edema and massive ascites within the abdomen and pelvis with subcutaneous diffuse edema and concentric thickening of the newell of the ascending, transverse and descending colon possibly secondary to inflammatory bowel disease with no evidence of obstruction. ED doctor initiated discussion of hospice with patient and family but they refused to this. He was admitted and managed for worsening edema and ascites as well as anasarca due to metastatic pancreatic cancer. He was started on fluid restriction and placed on Lasix IV. He had therapeutic paracentesis with removal of 3.2 L of fluid. The admitting hospitalist again offered hospice referral but patient and family declined this and were also declining any chemotherapy or further treatments. Lactic acid was elevated at 7.9 and trended up to a peak of 9.8. There was no clear evidence of infection but it was there was concern that it could be due to the metastatic cancer with spread to the liver and the peritoneal carcinomatosis as well as the anasarca which could all be contributing to this. This hospitalist had extensive discussion with the family about the CODE STATUS and goals of care. Family again refused any conventional treatment for the metastatic cancer and rather preferred holistic treatment that he was getting from his physician in [place]. However they wanted him to remain full code. I did explain to them that there was a discrepancy between the a wish for full code and the refusal of conventional medical care. In light of the elevated lactic acidosis they were counseled that patient would benefit from blood cultures and urine cultures as well as initiation of broad-spectrum antibiotics just in case there was any evidence of infection as the elevated lactic acid meets the criteria for septic shock. Lactic acid criteria. Patient was not interested in getting any broad- spectrum antibiotics and getting any workup like blood cultures or urine cultures. He did not even want to wait to see if the ascitic fluid analysis which show evidence of infection and wanted to go home. Patient was counseled that he would have to sign out AGAINST MEDICAL ADVICE since as he was full code we were due to bound medical legally to offer him for treatment. Patient expressed understanding and said he would sign out AGAINST MEDICAL ADVICE. Patient and family requested that he receive his IV albumin after which he would sign out AGAINST MEDICAL ADVICE. Patient as stated was given IV albumin 25 g x 1. Patient did sign out AGAINST MEDICAL ADVICE after he received the iV albumin on 12/27/2023. Patient was seen and examined on the day of discharge. Please refer to the progress note dated 12/27/2023. Physical Exam Const alert and oriented x3 Constitutional Narrative: frail, thin. General Appearance: cooperative HEENT normocephalic and head/scalp atraumatic Mouth: dry mucous membranes Eyes PERRL and EOMs intact bilaterally Neck no lymphadenopathy and supple Lymph Lymphatic: no lymphadenopathy noted Resp normal respiratory effort, normal air movement and clear to auscultation bilaterally Cardio regular rate, regular rhythm, S1 normal heart sound, S2 normal heart sound and no murmurs GI GI Narrative: obese, positive fluid thrill and shifting dullness Extremity normal capillary refill Extremity Narrative: bilateral 2+ pitting pedal edema General Extremity: no tenderness to palpation of joints or extremities Skin General Skin Exam: no breakdown Neuro oriented x3, CN's II-XII intact bilaterally, no focal motor deficits, no sensory deficits noted and deep tendon reflexes 2+ bilaterally Motor Exam: general weakness Psych thought process normal, cooperative and affect normal Appearance: appropriate Weight / BMI Weight Weight: 158 lb 1.143 oz Body Mass Index (BMI) 25.4 ABG / Lab / Microbiology Data 12/27/23 06:25 12/27/23 06:25 Laboratory: Laboratory Results - last 24 hr 12/26/23 17:05: B-Natriuretic Peptide 640.2 H 12/26/23 20:20: Urine Color Yellow, Urine Clarity Clear, Urine pH 6.0, Ur Specific [place] 1.015, Urine Protein 30 H, Urine Glucose (UA) Normal, Urine Ketones Negative, Urine Occult Blood Negative, Urine Nitrite Negative, Urine Bilirubin Negative, Urine Urobilinogen 1 H, Ur Leukocyte Esterase Negative, Urine RBC 0 SEEN, Urine WBC 0-5 SEEN, Ur Squamous Epith Cells 0 SEEN, Urine Bacteria 1+, Urine Mucus 0 SEEN 12/26/23 21:00: Phosphorus 2.8, Magnesium 1.8, Procalcitonin 2.74 H 12/26/23 22:35: Lactic Acid 8.3 H* 12/26/23 23:33: POC Glucose 92 12/27/23 06:25: WBC 11.8 H, RBC 3.21 L, Hgb 9.5 L, Hct 30.8 L, MCV 96.0 H, MCH 29.6, MCHC 30.8 L, RDW Std Deviation 73.8 H, RDW Coeff of Maru 21.3 H, Plt Count 152, MPV 9.9, Immature Gran % (Auto) 0.900, Neut % (Auto) 84.1 H, Lymph % (Auto) 9.0 L, [place] % (Auto) 4.3, Eos % (Auto) 1.4, Baso % (Auto) 0.3, Absolute Neuts (auto) 9.9 H, Absolute Lymphs (auto) 1.06, Nucleated RBC % 0, PT 16.0 H, INR 1.3, APTT 28.8, Sodium 142, Potassium 3.4 L, Chloride 107, Carbon Dioxide 25.0, Anion Gap 11, BUN 33 H, Creatinine 0.80, Estim Creat Clear Calc 68.67, Est GFR (MDRD) Af Amer 120, Est GFR (MDRD) Non-Af 99, BUN/Creatinine Ratio 41.1 H, Glucose 81, Lactic Acid 7.6 H*, Calcium 8.4 L, Total Bilirubin 1.60 H, AST 37, ALT 27, Alkaline Phosphatase 327 H, Total Protein 4.4 L, Albumin 1.5 L, Globulin 2.9, Albumin/Globulin Ratio 0.5 L 12/27/23 06:34: POC Glucose 85 12/27/23 11:09: POC Glucose 112 H 12/27/23 11:20: Lactic Acid 9.8 H* 12/27/23 14:00: Fluid Source PARACENTESIS, Fluid Color YELLOW, Fluid Appearance CLEAR, Fluid Specific Grav 1.012, Fluid WBC 0.074, Fluid RBC 220, Fluid Tot Cell Count 0.086, Fld Polynuclear WBCs # 0.007, Fld Polynuclear WBCs % 9.4, Fluid Mononuclear WBCs 0.067, Fld Mononuclear WBCs % 90.6, Fluid Neutrophils 2, Fluid Lymphocytes 50, Fluid Monocytes 2, Fluid Macrophages 36, Fld Mesothelial Cells 10, Fl Pathologist Comment May follow, Fluid Comment 2 SEE COMMENT 12/27/23 17:05: POC Glucose 87 Radiography Diagnostic Testing: Radiology Impression Abdomen/Pelvis CT 12/26/23 17:55 IMPRESSION: Large mass in the head of the pancreas and uncinate process consistent with known pancreatic neoplasm extensive hepatic metastases and pneumobilia status post stent placement Diffuse mesenteric edema and massive ascites within the abdomen and pelvis with diffuse subcutaneous edema in the flanks consistent with nonspecific anasarca. Concentric thickening of the newell of the ascending, transverse and descending colon possibly due to nonspecific inflammatory bowel disease. No evidence for small bowel obstruction Other findings as above Electronically Signed: Jamie Watkins MD at 19:38 EDT , D/C Instructions Discharge Diet: Low fat / Low cholesterol Discharge Activity: Return to Normal Activity Weight Bearing Status: Weight bearing as tolerated Call your doctor if you observe: Fever of 101 or Higher, Shortness of breath, Dizziness, Swelling in the ankles and Chest pain Meaningful Use Info Meaningful Use Meaningful Use Diagnoses (Choose all that apply): None applicable Ischemic Stroke Statin Dosing Therapy Reference: STATIN DOSE THERAPY REFERENCE: * Patients > 75 years receive moderate or high dose statin therapy. * Patients 75 years or YOUNGER should receive HIGH intensity statin dose unless contraindicated. You will be required to document reason for non-treatment if statin daily dose does not meet guidelines. HIGH DOSE STATIN THERAPY DAILY Atorvastatin > than or = to 40 mg Rosuvastatin > than or = to 20 mg Amlodipine + Atorvastatin > than or = to 2.5/40 mg Ezetimibe + Simvastatin 10/80 mg Simvastatin 80mg Discharge Plan Admission Admit Date/Time: 12/26/23 20:40 Primary Reason for Your Visit: metastatic pancreatic cancer Attending Provider: Melvina Tan Primary Care Provider: Phylicia Serra Consulting Providers: Kathy Brasher Instructions Patient Instructions: Pancreatic Cancer Dc Discharge Orders/Prescriptions Prescriptions: Continued cholecalciferol (vitamin D3) 1 tab PO DAILY Patient Comments: PT ORDERS ONLINE, DOESNT KNOW THE STRENGTH testosterone 50 mg/5 gram (1 %) gel 50 mg transdermal DAILY potassium chloride 20 mEq tablet extended release 20 meq PO BID Qty: 20 0RF bumetanide 0.5 mg tablet 0.5 mg PO DAILY thyroid (pork) [[employer] Thyroid] 60 mg tablet 60 mg PO DAILY potassium chloride 20 mEq tablet,ER particles/crystals 20 meq PO DAILY Referrals / Follow Up: Phylicia Serra DO [Primary Care Provider] - Within 1 Week Jose Worrell DO [Med Staff - Active Staff] - Within 1 Week Disposition Disposition (needs filled in before D/C Order can be placed): Against Medical Advice Charges/Coding Visit Charges Inpatient E&M: 58131 Disch Hosp >30min
[2023-12-27] MEDS: Albumin Human 25% (100 mL) 25 GM/100 ML BAG IV (18:03)
--- NOTE | 2023-12-27 18:34 | NURSING ---
Per Dr Tan, pt wishes to go home, but cannot discharge pt home with a lactic acid of 9.8. Pt voices understanding and wishes to proceed with leaving AMA. AMA papers signed. Pt finishing IV albumin before DC home
[2023-12-28 14:37] LABS: Glucose, Body Fluid 117 mg/dL (40-70); LDH,Body Fluid 71 Units/L (Not Establ.); Protein, Body Fluid 1.1 g/dL (Not Establ.)
[2023-12-31 06:14] LABS: Amylase Body Fluid 14 U/L (.)
[2023-12-31 13:46] LABS: Pathologist Comment/Body Fluid Reviewed
== END 2023-12-27 20:18 | disposition left against medical advice (07) | DRG 435 ==
LOC: ED 21:06 → MS3 21:21
PROVIDERS: Nurse Practitioner; Admitting Provider Family Medicine; Emergency Provider Emergency Medicine; PCP Internal Medicine; Visit Provider Student in an Organized Health Care Education/Training Program
DX: C25.9 Malignant neoplasm of pancreas, unspecified (principal); E43 Unspecified severe protein-calorie malnutrition; R18.0 Malignant ascites; C78.01 Secondary malignant neoplasm of right lung; C79.89 Secondary malignant neoplasm of other specified sites; E87.20 Acidosis, unspecified; C78.02 Secondary malignant neoplasm of left lung; J90 Pleural effusion, not elsewhere classified; C78.7 Secondary malignant neoplasm of liver and intrahepatic bile duct; C78.6 Secondary malignant neoplasm of retroperitoneum and peritoneum; E11.22 Type 2 diabetes mellitus with diabetic chronic kidney disease; D64.9 Anemia, unspecified; I12.9 Hypertensive chronic kidney disease with stage 1 through stage 4 chronic kidney disease, or unspecified chronic kidney disease; E55.9 Vitamin D deficiency, unspecified; N18.2 Chronic kidney disease, stage 2 (mild); R74.01 Elevation of levels of liver transaminase levels; Z87.891 Personal history of nicotine dependence; R53.83 Other fatigue; Z79.899 Other long term (current) drug therapy
CPT/HCPCS: 36415; 49083; 71045; 74177; 80048; 80053; 80061; 80076; 81001; 81002; 82150; 82306; 82533; 82945; 82962; 83036; 83540; 83550; 83605; 83615; 83690; 83735; 83880; 84100; 84145; 84157; 84439; 84443; 84481; 84482; 85025; 85027; 85610; 85730; 86141; 87070; 87075; 87077; 87086; 87088; 87186; 87205; 88108; 88305; 88313; 89050; 93005; 97162; 97166; 97802; 99285; J7030; P9047; Q9967; A4216; J1940

== ENCOUNTER → 2023-12-26 | Outpatient (CLI) | payer MEDICARE, SELFPAY ==
[2023-12-26 12:17] LABS: Hematocrit 37.7 % (40-54); Hemoglobin 11.7 g/dL (13.0-16.5); Mean Corpuscular Hgb 29.6 pg (27.0-32.0); Mean Corpuscular Volume 95.4 fL (80-94); Mean Platelet Vol. 10.7 fl (6.2-12.0); POSITIVE MORPHOLOGY YES; Platelet Count 247 K/mm3 (150-450); RBC Distribution Width CV 21.3 % (11.6-14.6); RBC Distribution Width SD 73.4 fl (35.1-43.9); Red Blood Count 3.95 M/mm3 (4.6-6.2); White Blood Count 15.7 K/mm3 (4.4-11.0)
[2023-12-26 12:31] LABS: Scan Indicated on CBC? Y/N YES- FLAGS NOTED
[2023-12-26 12:40] LABS: Vitamin D,25 Hydroxy 99.7 ng/mL
[2023-12-26 13:00] LABS: ALB/GLOB Ratio 0.5 RATIO (0.9-2.4); AST(SGOT) 38 U/L (15-37); Alanine Aminotransfer ALT/SGPT 29 U/L (16-61); Albumin, Serum 1.8 g/dL (3.2-5.0); Alkaline Phosphatase 366 U/L (45-117); Anion Gap 11 (5-15); BUN 33 mg/dL (7-18); BUN/Creat Ratio 38.4 RATIO (10-20); Chloride 104 mmol/L (98-107); Cholesterol 131 mg/dL (200); Creatinine, Serum 0.86 mg/dL (0.70-1.30); EST Glomerular Filtration Rate 91 mL/min (>60); Est Glom Filt Rate - Afr Amer 110 mL/min (>60); Free T3 0.7 pg/mL (2.18-3.98); Globulin 3.3 g/dL (2.2-4.2); Glucose 91 mg/dL (74-106); High Density Lipoprotein 16 mg/dL; Iron 25 ug/dL (65-175); Iron Binding Capacity,Total 117 ug/dL (250-450); PERCENT IRON SATURATION 21.4 % (15.0-55.0); Potassium 3.7 mmol/L (3.5-5.1); Protein, Total 5.1 g/dL (6.4-8.2); Sodium Level 141 mmol/L (136-145); T4 Free Direct 0.72 ng/dL (0.76-1.46); Triglycerides 191 mg/dL; Very Low Density Lipoprotein 38 mg/dL (5-40)
[2023-12-26 14:27] LABS: Hemoglobin A1c 4.8 % (3.8-5.6)
[2023-12-27 08:14] LABS: CRP, High Sensitivity 187.03 mg/L (0.00-3.00)
[2024-01-04 15:12] LABS: T3 Reverse 118.2 ng/dL (9.2-24.1)
== END | disposition home or self-care (01) ==
LOC: MTLAB 10:31
PROVIDERS: PCP Internal Medicine
DX: E55.9 Vitamin D deficiency, unspecified (principal); R53.83 Other fatigue; I10 Essential (primary) hypertension; E29.1 Testicular hypofunction
CPT/HCPCS: 36415; 80053; 80061; 82306; 82533; 83036; 83540; 83550; 84439; 84443; 84481; 84482; 85027; 86141